=== PATIENT | female | born 1970 | race Caucasian/White ===

== ENCOUNTER 2016-12-07 14:52 | Inpatient (IN) | payer MEDICAID, OTHER ==
[~2016-12-07] VITALS: Ht 149.9 cm; Wt 65.4 kg
[2016-12-07 14:54] VITALS: BP 126/79; PULSE 102; RESP 14; TEMP 98.4; O2SAT 100
--- NOTE | 2016-12-07 16:40 | PD ---
HPI Chief Complaint: Psychiatric Symptoms Time Seen by Provider: 16:40 Travel History International Travel<30 days: No Contact w/Intl Traveler<30days: No Traveled to known affect area: No History of Present Illness HPI 46-year-old female who is primarily Cymro-speaking, accompanied by her family who speaks Bulgarian, presents to emergency department today for psychiatric evaluation. Patient is followed by Dr. Merlos, eye dressed. The daughter informs me that she has been having more auditory or visual hallucinations. She has been having extreme obsessive-compulsive behavior. Dr. Kim has been adjusting her medications but this is not working. They're concerned about her. They say she is not aggressive. He denies suicidal or homicidal ideations. No acute illnesses. No other symptoms to report. PFSH Past Medical History Schizophrenia: Yes Social History Alcohol Use: No Tobacco Use: No Substance Use: No Allergies-Medications (Allergen,Severity, Reaction): Coded Allergies: No Known Allergies (Unverified , 12/07/16) Review of Systems Except as stated in HPI: all other systems reviewed are Neg Physical Exam Narrative GENERAL: Well-nourished female patient, in no acute distress SKIN: Warm and dry. HEAD: Atraumatic. Normocephalic. EYES: Pupils equal and round. No scleral icterus. No injection or drainage. ENT: No nasal bleeding or discharge. Mucous membranes pink and moist. NECK: Trachea midline. No JVD. CARDIOVASCULAR: Regular rate and rhythm. No murmur appreciated. RESPIRATORY: No accessory muscle use. Clear to auscultation. Breath sounds equal bilaterally. GASTROINTESTINAL: Abdomen soft, non-tender, nondistended. Hepatic and splenic margins not palpable. MUSCULOSKELETAL: No obvious deformities. No clubbing. No cyanosis. No edema. NEUROLOGICAL: Awake and alert. No obvious cranial nerve deficits. Motor grossly within normal limits. Normal speech. PSYCHIATRIC: Appropriate mood and affect; insight and judgment normal. Data Data Last Documented VS Vital Signs Date Time Temp Pulse Resp B/P Pulse Ox O2 Delivery O2 Flow Rate FiO2 12/07/16 14:54 98.4 102 14 126/79 100 Room Air Orders Complete Blood Count With Diff (12/07/16 15:34) Basic Metabolic Panel (Bmp) (12/07/16 15:34) Urinalysis - C+S If Indicated (12/07/16 15:34) Drug Screen, Random Urine (12/07/16 15:34) Alcohol (Ethanol) (12/07/16 15:34) Psych Screen (12/07/16 15:34) Iv Access Insert/Monitor (12/07/16 17:58) Sodium Chlor 0.9% 1000 Ml Inj (Ns 1000 M (12/07/16 18:00) Ondansetron Inj (Zofran Inj) (12/07/16 18:00) Labs Laboratory Tests Test 12/07/16 18:00 White Blood Count 7.5 TH/MM3 Red Blood Count 4.81 MIL/MM3 Hemoglobin 14.6 GM/DL Hematocrit 41.1 % Mean Corpuscular Volume 85.5 FL Mean Corpuscular Hemoglobin 30.3 PG Mean Corpuscular Hemoglobin 35.5 % Concent Red Cell Distribution Width 12.5 % Platelet Count 280 TH/MM3 Mean Platelet Volume 7.1 FL Neutrophils (%) (Auto) 55.1 % Lymphocytes (%) (Auto) 31.2 % Monocytes (%) (Auto) 13.3 % Eosinophils (%) (Auto) 0.2 % Basophils (%) (Auto) 0.2 % Neutrophils # (Auto) 4.2 TH/MM3 Lymphocytes # (Auto) 2.4 TH/MM3 Monocytes # (Auto) 1.0 TH/MM3 Eosinophils # (Auto) 0.0 TH/MM3 Basophils # (Auto) 0.0 TH/MM3 CBC Comment DIFF FINAL Differential Comment Urine Color YELLOW Urine Turbidity HAZY Urine pH 5.0 Urine Specific [place] 1.019 Urine Protein TRACE mg/dL Urine Glucose (UA) NEG mg/dL Urine Ketones NEG mg/dL Urine Occult Blood SMALL Urine Nitrite NEG Urine Bilirubin NEG Urine Urobilinogen LESS THAN 2.0 MG/DL Urine Leukocyte Esterase MOD Urine RBC 5 /hpf Urine WBC 6 /hpf Urine Squamous Epithelial 24 /hpf Cells Urine Bacteria OCC /hpf Urine Hyaline Casts 25 /lpf Urine Mucus FEW /lpf Microscopic Urinalysis Comment CULT NOT INDICATED Sodium Level 130 MEQ/L Potassium Level 3.7 MEQ/L Chloride Level 95 MEQ/L Carbon Dioxide Level 22.5 MEQ/L Anion Gap 13 MEQ/L Blood Urea Nitrogen 7 MG/DL Creatinine 0.85 MG/DL Estimat Glomerular Filtration 72 ML/MIN Rate Random Glucose 109 MG/DL Calcium Level 9.1 MG/DL Urine Opiates Screen NEG Urine Barbiturates Screen NEG Urine Amphetamines Screen NEG Urine Benzodiazepines Screen NEG Urine Cocaine Screen NEG Urine Cannabinoids Screen NEG Ethyl Alcohol Level LESS THAN 3 MG/DL MDM Medical Decision Making Medical Screen Exam Complete: Yes Emergency Medical Condition: Yes Medical Record Reviewed: Yes Differential Diagnosis Mood disorder versus personality disorder versus adjustment reaction disorder versus electrolyte abnormality versus UTI Narrative Course 46-year-old female presents to emergency department for evaluation. Patient appears well and without distress. While lab work was being drawn, patient appeared to have a vasovagal response. She was given a liter of normal saline. She recovered quickly. Vital signs remained stable. 1845 lab work results with no acute abnormality. Patient is medically cleared to undergo psychiatric screening for further evaluation and disposition. Mental health screening discussed with the patient. Psychiatric screen ordered. Diagnosis Primary Impression: Schizoaffective disorder Qualified Code: F25.9 - Schizoaffective disorder, unspecified type Condition: Stable Geovanna Tony Dec 07, 2016 16:40
[2016-12-07] MEDS ORDERED: ONDANSETRON HCL 4 MG/2 ML VIAL IV PUSH ONE (18:00)
[2016-12-07] MEDS ORDERED: SODIUM CHLOR 0.9% 1000 ML INJ 1,000 ML IV ONE (18:00)
[2016-12-07 18:23] LABS: AUTOMATED NEUTROPHIL # 4.2 TH/MM3 (1.8-7.7); BASOPHIL % 0.2 % (0.0-2.0); EOSINOPHIL % 0.2 % (0.0-4.0); HEMATOCRIT 41.1 % (35.0-46.0); HEMO FLAGS DIFF FINAL; LYMPH % 31.2 % (9.0-44.0); LYMPHOCYTE # 2.4 TH/MM3 (1.0-4.8); MEAN CELL VOLUME 85.5 FL (80.0-100.0); MEAN CORPUSCULAR HEMOGLOBIN 30.3 PG (27.0-34.0); MEAN CORPUSCULAR HGB CONC 35.5 % (32.0-36.0); MONO % 13.3 % (0.0-8.0); NEUT % 55.1 % (16.0-70.0); PLATELET COUNT 280 TH/MM3 (150-450); RED BLOOD COUNT 4.81 MIL/MM3 (4.00-5.30); RED CELL DISTRIBUTION WIDTH 12.5 % (11.6-17.2); WHITE BLOOD COUNT 7.5 TH/MM3 (4.0-11.0)
[2016-12-07 18:25] LABS: BACTERIA, URINE OCC /hpf; BLOOD, URINE SMALL (NEG); COMMENT (UR) CULT NOT INDICATED; CULTURE IF INDICATED CULT NOT INDICATED; GLUCOSE,URINE NEG (NEG); HYALINE CAST, URINE 25 /lpf (RARE); KETONE, URINE NEG (NEG); MUCUS URINE FEW /lpf (OCC); NITRITE,URINE NEG (NEG); SQUAMOUS EPITHELIAL CELL URINE 24 /hpf (0-5); URINE COLOR YELLOW (YELLW/STRAW)
[2016-12-07 18:36] LABS: AMPHETAMINE, URINE NEG (NEG); BARBITURATES, URINE NEG (NEG); COCAINE, URINE NEG (NEG)
[2016-12-07 18:37] LABS: ANION GAP 13 MEQ/L (5-15); BICARBONATE 22.5 MEQ/L (21.0-32.0); BLOOD UREA NITROGEN 7 MG/DL (7-18); CHLORIDE 95 MEQ/L (98-107); GLOMERULAR FILTRATION RATE 72 ML/MIN (>89); POTASSIUM 3.7 MEQ/L (3.5-5.1); SODIUM (NA) 130 MEQ/L (136-145)
[2016-12-07 18:52] VITALS: BP 122/75; PULSE 91; RESP 16; TEMP 98.5; O2SAT 96
--- NOTE | 2016-12-07 20:17 | PD ---
History of Present Illness Chief Complaint: Psychiatric Symptoms Time Seen by Provider: 19:15 Travel History International Travel<30 Days: No Contact w/Intl Traveler<30days: No Known affected area: No Legal Status Legal Status: Steven Act Steven Act Signed By: Tenisha Act Comment: BONNIE Moe History of Present Illness: History of Present Illness 46-year-old female with a reported history of schizophrenia who is primarily Mongolian-speaking, accompanied by her daughter and son who present to emergency department today for psychiatric evaluation. As per the daughter, Andrea, who informs me she is her guardian, the patient has been experiencing increase in psychiatric symptoms since October. Symptoms include increase in auditory hallucinations,fear that her neighbors are trying to harm her and her 17 year old son, delusional belief that she is , and " not making sense", has not slept in 24 hours. Patient is followed by Dr. Merlos at [facility] and they have been attempting to adjust her medications on an outpatient basis. She was seen at the office this afternoon and her medications were adjusted again. At this time her daughter does not feel safe taking the patient home as she is afraid she will leave the home in the middle of the night. as well as feeling recent medications changes have been ineffective. Patient is seen in triage . She is sleepy. She asks me several times in Mongolian " What are the results". What are the results?. She is unable to answer any other questions at this time or engage in any further evaluation. Later in J pod patient states " I'm here because my daughter works in [employer] and she has shoes and she took juice". As per EMR review this is her first contact with [facility] psychiatry dept. .Negative toxicology and no hx of substance use . PFSH Past Medical History Schizophrenia: Yes Psychiatric History Psychiatric History Hx Psychiatric Treatment: as per daughter first psychotic episode 17 years ago after th of her son. Was at [facility] 3 years ago History of Inpatient Treatment: Yes Guns or firearms in home: No Social History Born and raised in [place] x 3 years. x 2 years. Lives with daughter and 17 year old son. Hx Alcohol Use: No Hx Tobacco Use: No Hx Substance Use: No Family Psychiatric History Father w reported schizophrenia Allergies-Medications (Allergen,Severity, Reaction): Coded Allergies: No Known Allergies (Unverified , 12/07/16) Review of Systems ROS Limitations: Psychotic Exam Alert: Yes [place]: Person Affect: Restricted Speech: Illogical Eye Contact: Normal Memory Intact: Comment (not tested) Hallucinations: Auditory Delusions: Yes (that she is pregnat) Suicidal: Ideation (not able to assess) Homicidal: Ideation (not able to assess.) Insight/Judgement poor. impaired MDM Medical Decision Making Medical Record Reviewed: Yes Assessment/Plan 46 year old female with reported history of schizophrenia possibly schizoaffective disorder , bipolar type who presents to [facility] for psychiatric evaluation. Patient is psychotic at the time of evaluation and is unable to provide meaningful clinical information. Daughter report that Dr. Kim at [facility] has been adjusting her medication but current medication have been ineffective. Patient at this time requires increased level of care in inpatient psychiatric unit to maintain safety, further evaluate and adjust current psychiatric medication. I am unable to contact her current outpatient psychiatrist at this time to obtain further information regarding past medication trials. I have placed her under a BA at this time as she is unable to determine that she is in need of care. Orders Complete Blood Count With Diff (12/07/16 15:34) Basic Metabolic Panel (Bmp) (12/07/16 15:34) Urinalysis - C+S If Indicated (12/07/16 15:34) Drug Screen, Random Urine (12/07/16 15:34) Alcohol (Ethanol) (12/07/16 15:34) Psych Screen (12/07/16 15:34) Iv Access Insert/Monitor (12/07/16 17:58) Sodium Chlor 0.9% 1000 Ml Inj (Ns 1000 M (12/07/16 18:00) Ondansetron Inj (Zofran Inj) (12/07/16 18:00) Results Vital Signs Date Time Temp Pulse Resp B/P Pulse Ox O2 Delivery O2 Flow Rate FiO2 12/07/16 18:52 98.5 91 16 122/75 96 12/07/16 14:54 98.4 102 14 126/79 100 Room Air Laboratory Tests Test 12/07/16 18:00 White Blood Count 7.5 Red Blood Count 4.81 Hemoglobin 14.6 Hematocrit 41.1 Mean Corpuscular Volume 85.5 Mean Corpuscular Hemoglobin 30.3 Mean Corpuscular Hemoglobin 35.5 Concent Red Cell Distribution Width 12.5 Platelet Count 280 Mean Platelet Volume 7.1 Neutrophils (%) (Auto) 55.1 Lymphocytes (%) (Auto) 31.2 Monocytes (%) (Auto) 13.3 Eosinophils (%) (Auto) 0.2 Basophils (%) (Auto) 0.2 Neutrophils # (Auto) 4.2 Lymphocytes # (Auto) 2.4 Monocytes # (Auto) 1.0 Eosinophils # (Auto) 0.0 Basophils # (Auto) 0.0 CBC Comment DIFF FINAL Differential Comment Urine Color YELLOW Urine Turbidity HAZY Urine pH 5.0 Urine Specific [place] 1.019 Urine Protein TRACE Urine Glucose (UA) NEG Urine Ketones NEG Urine Occult Blood SMALL Urine Nitrite NEG Urine Bilirubin NEG Urine Urobilinogen LESS THAN 2.0 Urine Leukocyte Esterase MOD Urine RBC 5 Urine WBC 6 Urine Squamous Epithelial 24 Cells Urine Bacteria OCC Urine Hyaline Casts 25 Urine Mucus FEW Microscopic Urinalysis Comment CULT NOT INDICATED Sodium Level 130 Potassium Level 3.7 Chloride Level 95 Carbon Dioxide Level 22.5 Anion Gap 13 Blood Urea Nitrogen 7 Creatinine 0.85 Estimat Glomerular Filtration 72 Rate Random Glucose 109 Calcium Level 9.1 Urine Opiates Screen NEG Urine Barbiturates Screen NEG Urine Amphetamines Screen NEG Urine Benzodiazepines Screen NEG Urine Cocaine Screen NEG Urine Cannabinoids Screen NEG Ethyl Alcohol Level LESS THAN 3 Diagnosis Primary Impression: Schizoaffective disorder Admitting Information Admitting Physician Requests: Admit (Dr. Brown) Condition: Stable Problem Qualifiers Primary Impression: Schizoaffective disorder Qualified Code: F25.0 - Schizoaffective disorder, bipolar type Leti Tao Dec 07, 2016 20:17
[2016-12-07] MEDS ORDERED: OLAN20TA PO (20:35)
[2016-12-07] MEDS ORDERED: ARIP1TAB14 PO (20:38)
[2016-12-07] MEDS ORDERED: LEVO88TA2 PO (20:38)
[2016-12-07] MEDS ORDERED: LORA-373 PO (20:38)
[2016-12-07] MEDS ORDERED: BENZ1TAB PO (20:38)
[2016-12-07] MEDS ORDERED: BUPR100T4 PO (20:38)
[2016-12-07] MEDS ORDERED: BUSP10TA PO (20:38)
[2016-12-07] MEDS ORDERED: MAGNESIUM HYDROXIDE SUSP 30 ML CUP PO PRN (20:45)
[2016-12-07] MEDS ORDERED: ALUMINUM/MAGNESIUM/SIMETH 30 ML CUP PO PRN (20:45)
[2016-12-07] MEDS: BENZTROPINE MESYLATE 1 MG TAB PO SCH (20:57)
[2016-12-07 21:06] VITALS: BP 109/66; PULSE 80; RESP 18; O2SAT 96
[2016-12-07 23:00] VITALS: BP 116/66; PULSE 90; RESP 18; TEMP 97.7; O2SAT 98
[2016-12-08 06:33] VITALS: BP 130/68; PULSE 16; RESP 16; TEMP 98.2; O2SAT 98
[2016-12-08 08:12] LABS: ANION GAP 4 MEQ/L (5-15); BICARBONATE 28.7 MEQ/L (21.0-32.0); BLOOD UREA NITROGEN 6 MG/DL (7-18); CHLORIDE 104 MEQ/L (98-107); GLOMERULAR FILTRATION RATE 85 ML/MIN (>89); HDL CHOLESTEROL 100.8 MG/DL (40.0-60.0); LDL CHOLESTEROL 66 MG/DL (0-99); POTASSIUM 4.3 MEQ/L (3.5-5.1); SODIUM (NA) 137 MEQ/L (136-145)
[2016-12-08] MEDS: busPIRone HCL 10 MG TAB PO SCH ×3 (08:32→17:47)
[2016-12-08] MEDS: LEVOTHYROXINE SODIUM 88 MCG TAB PO SCH (08:32)
[2016-12-08] MEDS: ARIPiprazole 5 MG TAB PO SCH (11:27)
[2016-12-08] MEDS ORDERED: BENZTROPINE MESYLATE 1 MG TAB PO PRN (11:30)
[2016-12-08] MEDS ORDERED: BENZTROPINE MESYLATE 2 MG/2 ML VIAL IM PRN (11:30)
[2016-12-08] MEDS: hydrOXYzine HCL 50 MG TAB PO PRN ×2 (12:28→20:59)
--- NOTE | 2016-12-08 12:47 | MH ---
cc: ANTHONY ANAYA MD DATE OF ADMISSION 12/07/2016 ADMISSION DIAGNOSES 1. Other psychotic disorder, F28 2. Mixed anxiety disorder, F41.3 LEGAL STATUS The patient is capacitated to consent for psychiatric admission and for psychotropic medications. Voluntary status. HISTORY OF PRESENT ILLNESS Ms. Emerson is a 46-year-old female with a reported history of psychotic disorder who presents to the ED voluntarily for psychiatric evaluation. The patient was evaluated by the psychiatric nurse practitioner who placed the patient under the Steven Act. Reviewing our electronic medical record, I see no prior psychiatric contact within our system. The patient seen and examined. Chart reviewed. Case discussed with nursing staff on the inpatient psychiatric unit. The patient was assessed with nurse, Betzy who is conversant in Romanian, and also with counselor Berta. On my examination today, the patient says that she "hears voices, not fast." She denies any command auditory hallucinations, but struggles to describe the auditory phenomenon in any meaningful detail. She cannot tell me the duration of this symptom. She says "it is like in the nerve and I cannot really hear it." She denies any visual phenomenon. She denies any other hallucinatory phenomenon. I can elicit no delusional beliefs including, but not limited to paranoia, ideas of reference, thought insertion or withdrawal. She admits that sometimes she feels sad and more prominently anxious. Perhaps some mild sleep disturbance is present. She denies any suicidal or homicidal ideation. I can elicit no hypomanic or manic symptoms in this patient at this time. She does not describe any other real depressive symptomatology either. She is notably well-groomed and appears to be attending to her ADLs. The remainder of the psychiatric ROS is negative. With the patient's permission, counselor and I have obtained collateral from the patient's daughter, Marilin Hurtado. Ms. Hurtado says that the patient has a history of primary psychotic disorder and follows with Dr. Alvarez at [facility]. She reports that the patient's main ongoing issues are a high level of anxiety regarding the patient's adolescent son and also some degree of internal preoccupation. The daughter gives updated medication list, detailed below. PAST PSYCHIATRIC HISTORY The patient has a history of psychotic disorder as noted above. She follows with Dr. Kim at [facility]. She denies any history of psychiatric admissions or suicide attempts. FAMILY HISTORY The patient denies a family history of mental illness. CHEMICAL DEPENDENCY HISTORY The patient denies any history of abuse of drugs or alcohol. Her toxicology is negative and her alcohol level was undetectable on presentation here. SOCIAL HISTORY The patient reports that she lives with her daughter and 16-year-old son. Her mother is also in the home. She is high school educated, but does not work. She denies any history. No reported legal history. Denies any access to guns or firearms. PAST MEDICAL HISTORY Includes a history of hypothyroidism. MEDICATIONS Per daughter medication list consists of: 1. Wellbutrin 150 mg daily 2. Abilify 5 mg daily 3. Ativan 0.5 mg daily 4. Buspirone 10 mg daily 5. The patient's thyroid preparation. 6. Zyprexa 20 mg at bedtime 7. Cogentin 1 mg at bedtime ALLERGIES No known allergies. REVIEW OF SYSTEMS No reported headache, vision or hearing changes, chest pain, shortness of breath, bowel or bladder issues. She does note some polydipsia. PHYSICAL EXAMINATION VITAL SIGNS: Temperature is 98.2, pulse 90, respirations 16, blood pressure 130/68, pulse oximetry 98% on room air. A physical examination was completed in the emergency room by the ER staff and the patient was medically cleared. On my examination today, the patient appears to be in no acute physical distress. She is a well-nourished, well-developed female. Steady gait and station. No motoric abnormalities noted. No hand tremor, no dystonia, no dyskinesia noted. LABORATORY Reviewed: CBC is unremarkable. CMP significant for mildly decreased GFR at 85. Lipid panel is unremarkable. Beta hCG is negative. Hemoglobin A1c is pending. Toxicology is negative and alcohol level undetectable is undetectable. Urinalysis reveals small occult blood, moderate leukocyte esterase, 6 white blood cells, but culture was not indicated. MENTAL STATUS EXAM The patient is well-dressed and groomed. She is awake and alert and oriented to [facility] [place] [place]. She does struggle to do serial sevens. No motoric abnormalities noted. Speech is within normal limits for rate, tone and volume. Language and fund of knowledge seem average for age. Mood is described as somewhat down and affect is chiefly anxious. Thought process fairly linear. No loosening of associations. No ricardo delusions that I can tell on my examination. The patient does describe vague auditory hallucinations, but no other hallucinatory material. She denies suicidal or homicidal ideation. Insight and judgment seem fair. ASSESSMENT/PLAN This is a 46-year-old female with psychiatric history as detailed above who presents for psychiatric evaluation, now under the Steven Act and admitted to the inpatient psychiatric unit. The patient does apparently have a history of psychotic disorder and per collateral from the daughter, this may be mildly decompensated recently. There also seems to be a significant component of comorbid anxiety and I wonder if this might not help explain some of the symptomatology that has up to now has been described as psychotic in nature. Reviewing the medication list, there is significant polypharmacy and I think there is an opportunity for optimization of her medications while she is on the inpatient psychiatric unit. I will plan to admit the patient psychiatrically for a brief period of observation and stabilization. Admit inpatient, voluntary status. Check a TSH. I will continue her Abilify 5 mg daily and Zyprexa 20 mg at bedtime for now although an ancillary goal of this hospitalization may be to try to move the patient to antipsychotic monotherapy. I will replace her Bupropion, which has limited anxiolytic properties, with a serotonergic antidepressant which will hopefully help more with her anxiety. I will initiate Lexapro at a dose of 10 mg daily. I will continue her low-dose Ativan in morning. I will continue her scheduled Cogentin at bedtime, although with modifications to her antipsychotic regimen this may be able to be discontinued. I will continue her thyroid preparation. I will provide her with Atarax as needed for anxiety, Cogentin as needed for any breakthrough EPS. Vitals every shift. Counselor to see. Disposition planning. Estimated length of stay: 3-5 days. Anthony MARS /11:34 AM /12:11 PM OLIVE
[2016-12-08 15:50] LABS: HEMOGLOBIN A1b 0.9 %; HEMOGLOBIN Ao 86.3 %; HEMOGLOBIN LA1C 1.7 %; HEMOGLOBIN P3 3.3 %
[2016-12-08] MEDS: OLANZapine 10 MG TAB PO SCH (20:59)
[2016-12-08] MEDS: BENZTROPINE MESYLATE 1 MG TAB PO SCH (20:59)
[2016-12-08] MEDS: ACETAMINOPHEN 325 MG TAB PO PRN (21:01)
[2016-12-09] MEDS: LEVOTHYROXINE SODIUM 88 MCG TAB PO SCH (06:03)
[2016-12-09 06:40] VITALS: BP 111/68; PULSE 80; RESP 18; TEMP 98.5; O2SAT 98
[2016-12-09] MEDS: ESCITALOPRAM OXALATE 10 MG TAB PO SCH (08:32)
[2016-12-09] MEDS: busPIRone HCL 10 MG TAB PO SCH ×3 (08:32→18:24)
[2016-12-09] MEDS: ARIPiprazole 5 MG TAB PO SCH (08:35)
[2016-12-09] MEDS ORDERED: LORazepam 0.5 MG TAB PO SCH ×3 (09:00→21:00)
[2016-12-09] MEDS: ACETAMINOPHEN 325 MG TAB PO PRN (10:22)
--- NOTE | 2016-12-09 16:16 | HHI.PYPN ---
Subjective Remarks Patient seen and examined. Chart reviewed. Case discussed with nursing staff. I did endeavor to utilize the computer based interpretation service with the patient, but she preferred to conduct the interview in Sammarinese, and her Sammarinese proficiency seems fairly good. On my examination today, the patient clarifies her auditory hallucinations as being deprecatory nature saying "I want to kill you. Closer mouth." She notes that these have been getting quieter lately to the point that she is not particularly disturbed by them anymore. She does articulate a concern about the possibility of being , and I do see that there were concerns about delusions of prior to admission, but she seems easily reassured when I explained that we obtained a beta hCG which was negative. She denies any suicidal or homicidal ideation on direct questioning. She reports that she is sleeping well. She does complain of some anxiety, and we discuss adjustments I have made to her psychopharmacologic regimen in service of reducing this anxiety level. She denies side effects from current medications but does note the prior to admission bupropion was added and that this seemed to make her feel more nauseated. Review of Systems Other no physical complaints today Objective Alert: Yes [place]: Person, Place, Date Mood: Anxious Affect: Blunted Memory Intact: Comment (not formally assessed) Hallucinations: Auditory (deprecatory, noncommand) Delusions: No Delusion Type: Other (somewhat concerned about the possibility of being but easily reassured by negative test. No other evident delusions.) Suicidal: Ideation (denies suicidal ideation) Homicidal: Ideation (denies homicidal ideation) Insight/Judgement Fair Remarks No motoric abnormalities noted. Thought process linear. Speech within normal limits for rate, tone and volume. Grooming and self-care appear good. Labs Labs reviewed. No new labs. Vitals/IOs Vital Signs Date Time Temp Pulse Resp B/P Pulse Ox O2 Delivery O2 Flow Rate FiO2 12/09/16 06:40 98.5 80 18 111/68 98 12/07/16 21:06 Room Air Assessment & Plan Problem List: (1) Other psychotic disorder not due to a substance or known physiological condition ICD Code: F28 (2) Other mixed anxiety disorders ICD Code: F41.3 Assessment & Plan Continue Lexapro as ordered with plans to titrate to target anxiety. I will titrate her scheduled Ativan to twice a day to target anxiety until the antidepressant can take affect. Continue other psychotropics as ordered. Continue other medications and care as ordered. Justification for Cont. Inpt. Monitoring for safety. Medication changes in process. Risk for decompensation. Discharge Planning Pending psychiatric stabilization. Request HC Surrog/Guard Advoc?: No Abdulaziz Brown MD Dec 09, 2016 16:16
[2016-12-09] MEDS: LORazepam 0.5 MG TAB PO SCH (18:24)
[2016-12-09 19:35] VITALS: BP 128/70; PULSE 68; RESP 12; TEMP 97.9; O2SAT 98
[2016-12-09] MEDS: OLANZapine 10 MG TAB PO SCH (20:41)
[2016-12-09] MEDS: BENZTROPINE MESYLATE 1 MG TAB PO SCH (20:42)
[2016-12-10 05:41] VITALS: BP 136/82; PULSE 100; RESP 16; TEMP 98.6; O2SAT 96
[2016-12-10] MEDS: LEVOTHYROXINE SODIUM 88 MCG TAB PO SCH (05:55)
[2016-12-10] MEDS: ESCITALOPRAM OXALATE 10 MG TAB PO SCH (08:44)
[2016-12-10] MEDS: busPIRone HCL 10 MG TAB PO SCH ×3 (08:44→17:05)
[2016-12-10] MEDS: ARIPiprazole 5 MG TAB PO SCH (08:45)
[2016-12-10] MEDS: LORazepam 0.5 MG TAB PO SCH ×2 (08:45→17:05)
--- NOTE | 2016-12-10 11:44 | HHI.PYPN ---
Subjective Remarks Patient seen and examined. Chart reviewed. Case discussed with nursing staff. On my examination today, patient complains of reddening of her right middle finger that is painful. I have consulted the hospitalist for this. Patient reports that she tolerated adjustment in medication well and feels a little bit less anxious. No SI or HI voiced. No evident psychosis. No side effects from medications. Review of Systems Other except as above, no somatic complaints today. Objective Alert: Yes [place]: Person, Place, Date Mood: Anxious (lessening) Affect: Blunted Memory Intact: Comment (not formally assessed) Hallucinations: Other (no AVH reported today) Delusions: No Delusion Type: Other (no delusions) Suicidal: Ideation (no SI) Homicidal: Ideation (no HI) Insight/Judgement Fair Remarks No motoric abnormalities noted. TP linear. R middle finger is erythematous and mildly swollen and tender around the nail without purulence or drainage. Labs Labs reviewed Vitals/IOs Vital Signs Date Time Temp Pulse Resp B/P Pulse Ox O2 Delivery O2 Flow Rate FiO2 12/10/16 05:41 98.6 100 16 136/82 96 12/07/16 21:06 Room Air Assessment & Plan Problem List: (1) Other psychotic disorder not due to a substance or known physiological condition ICD Code: F28 (2) Other mixed anxiety disorders ICD Code: F41.3 Assessment & Plan Titrate Lexapro over the weekend to target anxiety. Continue other psychotropics as ordered. Continue other medications and care as ordered. Consult the hospitalist for the painful finger. Justification for Cont. Inpt. Risk for decompensation Discharge Planning Pending psychiatric stabilization. Possible discharge after the weekend. Request HC Surrog/Guard Advoc?: No Abdulaziz Brown MD Dec 10, 2016 11:44
[2016-12-10] MEDS: ACETAMINOPHEN 325 MG TAB PO PRN (13:09)
--- NOTE | 2016-12-10 17:28 | PD.CONS ---
[facility] [place] Requested By Dr. Brown Reason for Consult T0 evaluate and treat right middle finger infection Primary Care Physician Miley Kim M.D. Diagnoses: History of Present Illness This is a 46-year-old female who presented to the emergency room claiming of increased hallucinations. She has history of schizophrenia and hypothyroidism. Consultation has been requested by her attending to evaluate and manage right middle finger infection. Patient complains of pain and swelling of the right distal phalanx. Denies trauma, fever and chills. Patient examined with RN. Review of Systems Constitutional: DENIES: Diaphoretic episodes, Fatigue, Fever, Weight gain, Weight loss, Chills, Dizziness, Change in appetite, Night Sweats Endocrine: DENIES: Heat/cold intolerance, Polydipsia, Polyuria, Polyphagia Eyes: DENIES: Blurred vision, Diplopia, Vision loss, Photosensitivity Ears, nose, mouth, throat: DENIES: Tinnitus, Vertigo, Throat pain, Hoarseness, Epistaxis, Odynophagia Respiratory: DENIES: Cough, Wheezing, Hemoptysis, Sputum production, Shortness of breath Cardiovascular: DENIES: Chest pain, Palpitations, Syncope, Dyspnea on Exertion , PND, Lower Extremity Edema, Orthopnea, Claudication Gastrointestinal: DENIES: Abdominal pain, Black stools, Bloody stools, Constipation, Diarrhea, Nausea, Vomiting, Difficulty Swallowing, Anorexia Genitourinary: DENIES: Urinary frequency, Urinary incontinence, Urgency, Hematuria, Dysuria, Nocturia, Vaginal discharge Musculoskeletal: COMPLAINS OF: Joint pain, Joint Swelling Integumentary: DENIES: Rash Neurologic: DENIES: Headache, Localized weakness, Seizures, Tremor, Poor Balance Psychiatric: COMPLAINS OF: Hallucinations, DENIES: Anxiety, Confusion, Depression, Agitation, Suicidal Ideation, Homicidal Ideation, Delusions Past Family Social History Allergies: Coded Allergies: No Known Allergies (Unverified , 12/07/16) Past Medical History As previously mentioned Past Surgical History Denies Reported Medications 1. Wellbutrin 150 mg daily 2. Abilify 5 mg daily 3. Ativan 0.5 mg daily 4. Buspirone 10 mg daily 5. Synthroid 6. Zyprexa 20 mg at bedtime 7. Cogentin 1 mg at bedtime Family History Diabetes mellitus Social History Does not smoke or drink Physical Exam Vital Signs Vital Signs Date Time Temp Pulse Resp B/P Pulse Ox O2 Delivery O2 Flow Rate FiO2 12/10/16 13:54 18 12/10/16 05:41 98.6 100 16 136/82 96 12/09/16 19:35 97.9 68 12 128/70 98 Physical Exam GENERAL: This is a well-nourished, well-developed patient, in no apparent distress. SKIN: No rashes, ecchymoses or lesions. Cool and dry. HEAD: Atraumatic. Normocephalic. No temporal or scalp tenderness. EYES: Pupils equal round and reactive. Extraocular motions intact. No scleral icterus. No injection or drainage. ENT: Nose without bleeding, purulent drainage or septal hematoma. Throat without erythema, tonsillar hypertrophy or exudate. Uvula midline. Airway patent. NECK: Trachea midline. No JVD or lymphadenopathy. Supple, nontender, no meningeal signs. CARDIOVASCULAR: Regular rate and rhythm without murmurs, gallops, or rubs. RESPIRATORY: Clear to auscultation. Breath sounds equal bilaterally. No wheezes , rales, or rhonchi. GASTROINTESTINAL: Abdomen soft, non-tender, nondistended No guarding. MUSCULOSKELETAL: Extremities without clubbing, cyanosis, or edema. No joint tenderness, effusion, or edema noted. No calf tenderness. Negative Homans sign bilaterally. Right middle finger medial fold is swollen, warm and tender consistent with paronychia NEUROLOGICAL: Awake and alert. Cranial nerves II through XII intact. Motor and sensory grossly within normal limits. Five out of 5 muscle strength in all muscle groups. Normal speech. Result Diagram: 12/07/16 1800 12/08/16 0715 Assessment and Plan Assessment and Plan Schizophrenia per psychiatry Hypothyroidism. Stable with therapeutic TSH. Continue Synthroid Right paronychia. Warm compress, topical antibiotic and Keflex. We'll monitor response. Low risk for DVT Discussed Condition With Patient and nursing staff Kike Carter MD Dec 10, 2016 17:28
[2016-12-10] MEDS ORDERED: IBUPROFEN 400 MG TAB PO PRN (17:30)
[2016-12-10] MEDS: CEPHALEXIN MONOHYDRATE 500 MG CAP PO SCH ×2 (18:18→23:37)
[2016-12-10] MEDS: NEOMYCIN/POLYMYXIN/BACITRACIN OINT 15 GM TUBE TOPICAL SCH (18:39)
[2016-12-10 19:29] VITALS: BP 122/69; PULSE 85; RESP 16; TEMP 98; O2SAT 96
[2016-12-10] MEDS: OLANZapine 10 MG TAB PO SCH (20:30)
[2016-12-10] MEDS: BENZTROPINE MESYLATE 1 MG TAB PO SCH (20:30)
[2016-12-11 05:36] VITALS: BP 160/80; PULSE 96; RESP 18; TEMP 98.4; O2SAT 98
[2016-12-11] MEDS: CEPHALEXIN MONOHYDRATE 500 MG CAP PO SCH ×4 (06:08→23:48)
[2016-12-11] MEDS: LEVOTHYROXINE SODIUM 88 MCG TAB PO SCH (06:08)
[2016-12-11] MEDS: LORazepam 0.5 MG TAB PO SCH ×2 (08:08→17:54)
[2016-12-11] MEDS: ESCITALOPRAM OXALATE 10 MG TAB PO SCH (08:08)
[2016-12-11] MEDS: busPIRone HCL 10 MG TAB PO SCH ×3 (08:09→17:54)
[2016-12-11] MEDS: NEOMYCIN/POLYMYXIN/BACITRACIN OINT 15 GM TUBE TOPICAL SCH (08:09)
[2016-12-11] MEDS: ARIPiprazole 5 MG TAB PO SCH (08:11)
--- NOTE | 2016-12-11 15:32 | HHI.PR ---
Subjective Remarks Follow-up paronychia. Denies pain. Discussed with RN Objective Vitals Vital Signs Date Time Temp Pulse Resp B/P Pulse Ox O2 Delivery O2 Flow Rate FiO2 12/11/16 05:36 98.4 96 18 160/80 98 12/10/16 19:29 98.0 85 16 122/69 96 Result Diagram: 12/07/16 1800 12/08/16 0715 Objective Remarks GENERAL: This is a well-nourished, well-developed patient, in no apparent distress. SKIN: No rashes, ecchymoses or lesions. Cool and dry. HEAD: Atraumatic. Normocephalic. No temporal or scalp tenderness. EYES: Pupils equal round and reactive. Extraocular motions intact. No scleral icterus. No injection or drainage. ENT: Nose without bleeding, purulent drainage or septal hematoma. Throat without erythema, tonsillar hypertrophy or exudate. Uvula midline. Airway patent. NECK: Trachea midline. No JVD or lymphadenopathy. Supple, nontender, no meningeal signs. CARDIOVASCULAR: Regular rate and rhythm without murmurs, gallops, or rubs. RESPIRATORY: Clear to auscultation. Breath sounds equal bilaterally. No wheezes , rales, or rhonchi. GASTROINTESTINAL: Abdomen soft, non-tender, nondistended No guarding. MUSCULOSKELETAL: Extremities without clubbing, cyanosis, or edema. No joint tenderness, effusion, or edema noted. No calf tenderness. Negative Homans sign bilaterally. Right middle finger medial fold is swollen, warm and tender which is improving NEUROLOGICAL: Awake and alert. Cranial nerves II through XII intact. Motor and sensory grossly within normal limits. Five out of 5 muscle strength in all muscle groups. Normal speech. A/P Assessment and Plan Schizophrenia per psychiatry Hypothyroidism. Stable with therapeutic TSH. Continue Synthroid Right paronychia. Improving continue Warm compress, topical antibiotic and Keflex. We'll continue to monitor response. I and D not needed at this time Low risk for DVT Kike Carter MD Dec 11, 2016 15:32
--- NOTE | 2016-12-11 18:05 | HHI.PYPN ---
Subjective Remarks Pt seen and discussed with staff. She reports that medications seem to be working and AH have decreased significantly. Staff report that pt htas been compliant with treatment and calm and pleasant. No sleep disturbance. 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 Continue current tx plan.Estimated LOS: days Justification for Cont. Inpt. impairments in reality construction and risk of decompensation. Request HC Surrog/Guard Advoc?: No Geri Gillespie MD Dec 11, 2016 18:04
[2016-12-11 18:58] VITALS: BP 138/96; PULSE 69; RESP 18; TEMP 98; O2SAT 100
[2016-12-11] MEDS: BENZTROPINE MESYLATE 1 MG TAB PO SCH (20:35)
[2016-12-11] MEDS: OLANZapine 10 MG TAB PO SCH (20:35)
[2016-12-12 05:55] VITALS: BP 134/82; PULSE 94; RESP 19; TEMP 98.4; O2SAT 100
[2016-12-12] MEDS: LEVOTHYROXINE SODIUM 88 MCG TAB PO SCH (06:13)
[2016-12-12] MEDS: CEPHALEXIN MONOHYDRATE 500 MG CAP PO SCH ×3 (06:13→18:17)
[2016-12-12] MEDS: busPIRone HCL 10 MG TAB PO SCH ×3 (08:34→18:17)
[2016-12-12] MEDS: NEOMYCIN/POLYMYXIN/BACITRACIN OINT 15 GM TUBE TOPICAL SCH (08:34)
[2016-12-12] MEDS: LORazepam 0.5 MG TAB PO SCH ×2 (08:34→18:17)
[2016-12-12] MEDS: ESCITALOPRAM OXALATE 10 MG TAB PO SCH (08:34)
[2016-12-12] MEDS: ARIPiprazole 5 MG TAB PO SCH (08:34)
[2016-12-12] MEDS: ACETAMINOPHEN 325 MG TAB PO PRN (10:20)
--- NOTE | 2016-12-12 13:17 | HHI.PYPN ---
Subjective Remarks Pt seen and discussed with staff. Pt reports that she has not had AH but paranoia persists. "I'm afraid. I feel like someone is behind me, watching me." No medication side effects and pt is compliant. 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 Estimated LOS: days Justification for Cont. Inpt. impairments in reality construction. Request HC Surrog/Guard Advoc?: Geri Rangel MD Dec 12, 2016 13:17
[2016-12-12 18:38] VITALS: BP 136/77; PULSE 77; RESP 20; TEMP 98; O2SAT 98
[2016-12-12] MEDS: OLANZapine 10 MG TAB PO SCH (21:00)
[2016-12-12] MEDS: BENZTROPINE MESYLATE 1 MG TAB PO SCH (21:00)
[2016-12-12] MEDS: hydrOXYzine HCL 50 MG TAB PO PRN (21:13)
[2016-12-13 04:57] VITALS: BP 142/88; PULSE 97; RESP 18; TEMP 98.1; O2SAT 100
[2016-12-13] MEDS: CEPHALEXIN MONOHYDRATE 500 MG CAP PO SCH ×5 (06:00→23:00)
[2016-12-13] MEDS: LEVOTHYROXINE SODIUM 88 MCG TAB PO SCH (06:00)
[2016-12-13] MEDS: NEOMYCIN/POLYMYXIN/BACITRACIN OINT 15 GM TUBE TOPICAL SCH (09:00)
[2016-12-13] MEDS: ESCITALOPRAM OXALATE 10 MG TAB PO SCH (09:00)
[2016-12-13] MEDS: ARIPiprazole 5 MG TAB PO SCH (09:00)
[2016-12-13] MEDS: busPIRone HCL 10 MG TAB PO SCH ×3 (09:00→17:53)
[2016-12-13] MEDS: LORazepam 0.5 MG TAB PO SCH ×2 (09:00→17:53)
--- NOTE | 2016-12-13 13:17 | HHI.PYPN ---
Subjective Remarks Patient seen and examined. Chart reviewed. Case discussed with nursing staff. Per nursing staff, patient has been pleasant and cooperative. On my examination today, patient reports that she is feeling well. She denies any SI , HI or AVH. She denies any side effects from medications besides some mild dry mouth.. She requests that we begin final discharge planning and also requests that we contact her daughter in this regard. I did endeavor to give her daughter a call and left a voicemail requesting a call back. Review of Systems Other Besides dry mouth, no somatic complaints Objective Alert: Yes [place]: Person, Place, Date Mood: Calm Affect: Euthymic Memory Intact: Comment (seems fairly intact on clinical exam) Hallucinations: Other (denies AVH) Delusions: No Delusion Type: Other (no delusions) Suicidal: Ideation (denies suicidal ideation) Homicidal: Ideation (denies homicidal ideation) Insight/Judgement Fair Remarks No motoric abnormalities noted Labs Labs reviewed. 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 Continue other medications and care is ordered. I will ask the hospitalist media sales consultant to medically clear the patient for discharge. Justification for Cont. Inpt. Monitor overnight. Discharge Planning Counselor will try to get in contact with patient's daughter and we will anticipate discharge tomorrow barring some clinical worsening. Request HC Surrog/Guard Advoc?: No Abdulaziz Brown MD Dec 13, 2016 13:17
--- NOTE | 2016-12-13 16:12 | HHI.PR ---
Subjective Remarks All of visit paronychia. Patient seen today. States she is doing well. Denies any pain. Reports improved right finger paronychia. Denies fevers, chills, nausea, vomiting, diarrhea. Objective Vitals Vital Signs Date Time Temp Pulse Resp B/P Pulse Ox O2 Delivery O2 Flow Rate FiO2 12/13/16 04:57 98.1 97 18 142/88 100 12/12/16 18:38 98.0 77 20 136/77 98 Objective Remarks GENERAL: This is a well-nourished, well-developed patient, in no apparent distress. SKIN: No rashes, ecchymoses or lesions. Cool and dry. HEAD: Atraumatic. Normocephalic. No temporal or scalp tenderness. EYES: Pupils equal round and reactive. Extraocular motions intact. No scleral icterus. No injection or drainage. ENT: Nose without bleeding, purulent drainage or septal hematoma. Throat without erythema, tonsillar hypertrophy or exudate. Uvula midline. Airway patent. NECK: Trachea midline. No JVD or lymphadenopathy. Supple, nontender, no meningeal signs. CARDIOVASCULAR: Regular rate and rhythm without murmurs, gallops, or rubs. RESPIRATORY: Clear to auscultation. Breath sounds equal bilaterally. No wheezes , rales, or rhonchi. GASTROINTESTINAL: Abdomen soft, non-tender, nondistended No guarding. MUSCULOSKELETAL: Extremities without clubbing, cyanosis, or edema. Right middle finger medial fold is swollen, warm and tender which is improving NEUROLOGICAL: Awake and alert. Motor and sensory grossly within normal limits. Normal speech. 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 - Improved. Hypothyroidism - continue with Synthroid. Stable Low risk for DVT. Ambulatory. Discussed with patient, nursing Stable from Hospitalist standpoint. We will sign off. Reconsult as needed. Written by Jose Ac, acting as scribe for Dr. Jovel on 12/13/16 at 15:41. The documentation accurately reflects the work performed [id number] by me, Dr. Jovel on 12/13/16 at 15:41. Problem Qualifiers (1) Schizoaffective disorder: Qualified Code: F25.0 - Schizoaffective disorder, bipolar type Jose Alonzo Dec 13, 2016 16:12 Andrew Jovel MD Dec 24, 2016 15:46
[2016-12-13 19:01] VITALS: BP 134/87; PULSE 74; RESP 18; TEMP 98.1; O2SAT 100
[2016-12-13] MEDS: OLANZapine 10 MG TAB PO SCH (21:00)
[2016-12-13] MEDS: BENZTROPINE MESYLATE 1 MG TAB PO SCH (21:00)
[2016-12-14] MEDS: CEPHALEXIN MONOHYDRATE 500 MG CAP PO SCH ×2 (06:00→12:34)
[2016-12-14] MEDS: LEVOTHYROXINE SODIUM 88 MCG TAB PO SCH (06:00)
[2016-12-14 06:21] VITALS: BP 125/80; PULSE 75; RESP 16; TEMP 97.8; O2SAT 97
[2016-12-14] MEDS: LORazepam 0.5 MG TAB PO SCH ×2 (08:06→17:30)
[2016-12-14] MEDS: NEOMYCIN/POLYMYXIN/BACITRACIN OINT 15 GM TUBE TOPICAL SCH (08:06)
[2016-12-14] MEDS: ESCITALOPRAM OXALATE 10 MG TAB PO SCH (08:06)
[2016-12-14] MEDS: busPIRone HCL 10 MG TAB PO SCH ×3 (08:06→17:30)
[2016-12-14] MEDS: ARIPiprazole 5 MG TAB PO SCH (08:06)
[2016-12-14] MEDS ORDERED: ARIP1TAB11 PO (13:56)
[2016-12-14] MEDS ORDERED: CEPH500C PO (13:56)
[2016-12-14] MEDS ORDERED: LORA-392 PO (13:56)
[2016-12-14] MEDS ORDERED: ESCI10TA PO (13:56)
--- NOTE | 2016-12-14 13:56 | HHI.DS ---
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 Emerson is a 46-year-old female with a reported history of psychotic disorder who presents to the ED voluntarily for psychiatric evaluation. The patient was evaluated by the psychiatric nurse practitioner who placed the patient under the Steven Act. Reviewing our electronic medical record, I see no prior psychiatric contact within our system. The patient seen and examined. Chart reviewed. Case discussed with nursing staff on the inpatient psychiatric unit. The patient was assessed with nurse, Betzy who is conversant in Romanian, and also with counselor Berta. On my examination today, the patient says that she "hears voices, not fast." She denies any command auditory hallucinations, but struggles to describe the auditory phenomenon in any meaningful detail. She cannot tell me the duration of this symptom. She says "it is like in the nerve and I cannot really hear it." She denies any visual phenomenon. She denies any other hallucinatory phenomenon. I can elicit no delusional beliefs including, but not limited to paranoia, ideas of reference, thought insertion or withdrawal. She admits that sometimes she feels sad and more prominently anxious. Perhaps some mild sleep disturbance is present. She denies any suicidal or homicidal ideation. I can elicit no hypomanic or manic symptoms in this patient at this time. She does not describe any other real depressive symptomatology either. She is notably well-groomed and appears to be attending to her ADLs. The remainder of the psychiatric ROS is negative. With the patient's permission, counselor and I have obtained collateral from the patient's daughter, Marilin Hurtado. Ms. Hurtado says that the patient has a history of primary psychotic disorder and follows with Dr. Alvarez at [facility]. She reports that the patient's main ongoing issues are a high level of anxiety regarding the patient's adolescent son and also some degree of internal preoccupation. The daughter gives updated medication list, detailed below. Tobacco Use In Past 30 Days: No Tobacco Past 30 Days Alcohol Use: Monthly or Less Hospital Course Patient was admitted to a locked, inpatient psychiatric unit. A general medical consultation was obtained. Appropriate precautions were in place throughout patient's hospital stay. Patient was seen and examined daily on the unit by psychiatry and also visited by counselor. Medications were adjusted. Patient tolerated medications well without side effects. Patient had improvement in her presenting psychiatric symptomatology during the course of her hospital stay. There was no evidence of any suicidality or homicidality on the inpatient unit. Patient remained in good behavioral control and was medication compliant. Counselor has reached out to patient's daughter on the day of discharge and the daughter is reportedly willing to accept the patient home. On the day of discharge: Patient seen and examined in treatment team. Chart reviewed. Case discussed with nursing staff, counselor and recreation therapist. Patient is reportedly doing well on the unit without behavioral disturbance. On my examination today, the patient is in good spirits. She requests discharge from the inpatient psychiatric unit. Mood is good and there is no evidence of unstable mood disorder. Anxiety level considerably lessened. She denies any audiovisual hallucinations and I can elicit no delusional beliefs. She denies any suicidal or homicidal ideation. She denies any side effects from medications. She has no somatic complaints today. Weighing the acute, chronic, and protective factors and based on the available evidence, I food assembler kitchen to a reasonable degree of medical certainty that the patient is at low imminent risk of harm to self or others from a mental illness as defined under the Steven act and her level of function is adequate for outpatient care. The patient has maximized benefit from this inpatient psychiatric hospital stay and will be discharged today in stable condition with psychiatric follow-up as arranged by counselor. Patient is also to follow-up with primary care. I continued patient's Keflex for a total duration of treatment of 14 days for her paronychia. I counseled the patient regarding warning signs for need to return to the psychiatric emergency room is part of a general safety plan. Results Blood Pressure 125 / 80 Vital Signs Date Time Temp Pulse Resp B/P Pulse Ox O2 Delivery O2 Flow Rate FiO2 12/14/16 06:21 97.8 75 16 125/80 97 Item Value Date Time White Blood Count 7.5 TH/MM3 12/07/16 1800 Hemoglobin 14.6 GM/DL 12/07/16 1800 Platelet Count 280 TH/MM3 12/07/16 1800 Sodium Level 137 MEQ/L 12/08/16 0715 Potassium Level 4.3 MEQ/L 12/08/16 0715 Chloride Level 104 MEQ/L # 12/08/16 0715 Carbon Dioxide Level 28.7 MEQ/L 12/08/16 0715 Blood Urea Nitrogen 6 MG/DL L 12/08/16 0715 Creatinine 0.73 MG/DL 12/08/16 0715 Hemoglobin A1c 5.3 % 12/08/16 0715 Thyroid Stimulating Hormone 3rd Gen 1.170 uIU/ML 12/08/16 0715 Beta HCG, Qualitative LESS THAN 1 MIU/ML 12/08/16 0715 Urine Opiates Screen NEG 12/07/16 1800 Urine Barbiturates Screen NEG 12/07/16 1800 Urine Benzodiazepines Screen NEG 12/07/16 1800 Urine Amphetamines Screen NEG 12/07/16 1800 Urine Cocaine Screen NEG 12/07/16 1800 Urine Cannabinoids Screen NEG 12/07/16 1800 Ethyl Alcohol Level LESS THAN 3 MG/DL 12/07/16 1800 Summary of Procedures None done Imaging None done Pending results at discharge: No Medications # of Antipsychotic meds at D/C: 2 Appropriate >1 Antipsych meds?: 4 Approp Antipsych med options 1 - Minimum of three failed multiple trials of monotherapy. 2 - Documented plan to taper to monotherapy due to previous use of multiple meds OR cross-taper in progress at D/C. 3 - Documentation of augmentation of Clozapine. 4 - Justification other than those listed in allowable values 1-3, document here : Prior to admission regimen Discharge Discharge Date: Dec 14, 2016 Discharge Diagnosis: (1) Other psychotic disorder not due to a substance or known physiological condition Diagnosis: Principal (stabilized) ICD Code: F28 (2) Other mixed anxiety disorders Diagnosis: Secondary (stabilized) ICD Code: F41.3 GAF on discharge is 60. Mental Status Exam at Disch Patient is casually dressed. She is well groomed. She is awake and alert and oriented to person and hospital at least. No evidence of delirium. No abnormal motor movements noted. Speech is within normal limits for rate, tone and volume. Language and fund of knowledge seem average. Mood is good and affect is full and reactive. Thought process linear. No loosening of associations. No evident delusions. Denies audiovisual hallucinations. Denies suicidal or homicidal ideation. Insight and judgment are fair. Pt Condition on Discharge: Stable Discharge Disposition: Discharge Home Discharge Instructions Diet Instructions: As Tolerated, No Restrictions Activities you can perform: Weight Bearing as Tom Scheduled Appointment: [facility] Appointment Date: Dec 20, 2016 Appointment Time: 1145 New Medications: Aripiprazole (Aripiprazole) 5 Mg Tab 5 MG PO DAILY Mental Health Days 15 Ref 1 TAB Cephalexin (Cephalexin) 500 Mg Cap 500 MG PO Q6HR Paronychia Days 10 Ref 0 CAP Escitalopram (Escitalopram) 10 Mg Tab 10 MG PO DAILY Mental Health Days 15 Ref 1 TAB Lorazepam (Ativan) 0.5 Mg Tab 0.5 MG PO BID@09,18 Mental Health Days 15 Ref 1 TAB Continued Medications: Benztropine (Benztropine) 1 Mg Tab 1 MG PO HS #30 Ref 0 TAB Buspirone (Buspirone) 10 Mg Tab 10 MG PO TID Anxiety Ref 0 TAB Levothyroxine (Levothyroxine) 88 Mcg Tab 88 MCG PO DAILY Thyroid #30 Ref 0 TAB Olanzapine (Olanzapine) 20 Mg Tab 20 MG PO HS #30 Ref 0 TAB Discontinued Medications: Aripiprazole (Aripiprazole) 20 Mg Tab 20 MG PO DAILY #30 Ref 0 TAB Bupropion HCl (Bupropion HCl) 100 Mg Tab 300 MG PO DAILY Control Depression Ref 0 TAB Lorazepam (Lorazepam) 0.5 Mg Tab 0.5 MG PO DAILY PRN ANXIETY Ref 0 TAB Discharge Time <= 30 minutes Discharge/Advance Care Plan Health Problems: (1) Other psychotic disorder not due to a substance or known physiological condition (2) Other mixed anxiety disorders Goals to promote your health * To prevent worsening of your condition and complications * To maintain your health at the optimal level Directions to meet your goals Take your medications as prescribed Follow your dietary instruction Follow activity as directed Keep your appointments as scheduled Take your immunizations and boosters as scheduled If your symptoms worsen call your PCP, if no PCP go to Urgent Care Center or Emergency Room For 30/05 questions related to your inpatient stay or results of tests pending at discharge, please contact Dr. Abdulaziz Brown at Smoking is Dangerous to Your Health. Avoid second hand smoking Abdulaziz Brown MD Dec 14, 2016 13:56
== END 2016-12-14 17:45 | disposition home or self-care (01) | DRG 885 ==
LOC: NEPJ 14:52 → NEDA 20:38 → H270 21:33 → H260 12-08 18:09
PROVIDERS: ADMIT Psychiatry & Neurology Psychiatry; ATTEND Psychiatry & Neurology Psychiatry
DX: F28 Other psychotic disorder not due to a substance or known physiological condition (principal); E03.9 Hypothyroidism, unspecified; F41.9 Anxiety disorder, unspecified; F41.3 Other mixed anxiety disorders; Z81.8 Family history of other mental and behavioral disorders; L03.011 Cellulitis of right finger
CPT/HCPCS: 80048; 80061; 80307; 80320; 81001; 83036; 84443; 84703; 85025; 96374; 96375; J2405; J7030

== ENCOUNTER 2017-06-29 17:51 | Emergency (ER) | payer MEDICAID, OTHER ==
[~2017-06-29] VITALS: Ht 157.5 cm; Wt 68.0 kg
[~2017-06-29 17:51] MED LIST: ARIP1TAB11 PO; BENZ1TAB PO; BUSP10TA PO; CEPH500C PO; ESCI10TA PO; LEVO88TA2 PO; LORA-392 PO; OLAN20TA PO
[2017-06-29 17:54] VITALS: BP 132/79; PULSE 80; RESP 20; TEMP 98.7; O2SAT 99
[2017-06-29 19:00] LABS: BACTERIA, URINE MANY /hpf; BLOOD, URINE SMALL (NEG); COMMENT (UR) CULTURE INDICATED; CULTURE IF INDICATED CULTURE INDICATED; GLUCOSE,URINE NEG (NEG); KETONE, URINE NEG (NEG); NITRITE,URINE NEG (NEG); PH, URINE 6.5 (5.0-8.5); SQUAMOUS EPITHELIAL CELL URINE 9 /hpf (0-5); URINE COLOR LIGHT-YELLOW (YELLW/STRAW)
[2017-06-29 19:19] LABS: AUTOMATED NEUTROPHIL # 5.2 TH/MM3 (1.8-7.7); BASOPHIL % 0.1 % (0.0-2.0); EOSINOPHIL % 0.2 % (0.0-4.0); HEMO FLAGS AUTO DIFF; LYMPH % 29.5 % (9.0-44.0); LYMPHOCYTE # 2.6 TH/MM3 (1.0-4.8); MEAN CORPUSCULAR HEMOGLOBIN 30.8 PG (27.0-34.0); MEAN CORPUSCULAR HGB CONC 35.4 % (32.0-36.0); MONO % 11.5 % (0.0-8.0); NEUT % 58.7 % (16.0-70.0); PLATELET COUNT 264 TH/MM3 (150-450); RED BLOOD COUNT 4.72 MIL/MM3 (4.00-5.30); RED CELL DISTRIBUTION WIDTH 12.7 % (11.6-17.2); WHITE BLOOD COUNT 8.8 TH/MM3 (4.0-11.0)
[2017-06-29 19:24] LABS: ANION GAP 10 MEQ/L (5-15); AST (GOT) 30 U/L (15-37); BICARBONATE 26.5 MEQ/L (21.0-32.0); BLOOD UREA NITROGEN 10 MG/DL (7-18); CHLORIDE 92 MEQ/L (98-107); GLOMERULAR FILTRATION RATE 79 ML/MIN (>89); POTASSIUM 3.3 MEQ/L (3.5-5.1); SODIUM (NA) 128 MEQ/L (136-145)
[2017-06-29 19:25] LABS: ALT (GPT) 24 U/L (10-53)
[2017-06-29 19:27] LABS: ALKALINE PHOSPHATASE 83 U/L (45-117); TOTAL BILIRUBIN ADULT 1.4 MG/DL (0.2-1.0)
[2017-06-29 20:27] LABS: PLATELET ESTIMATE SMEAR NORMAL (NORMAL); PLATELET MORPHOLOGY NORMAL (NORMAL); SCAN/DIFF AUTO DIFF CONFIRMED
--- NOTE | 2017-06-29 20:36 | PD ---
HPI Chief Complaint: Psychiatric Symptoms Time Seen by Provider: 20:34 Travel History International Travel<30 days: No Contact w/Intl Traveler<30days: No Traveled to known affect area: No History of Present Illness HPI 47-year-old female with PMH of schizoaffective disorder and anxiety presents to the ED for evaluation of increased anxiety and delusional thought processes. The patient's 2 daughters and son are at bedside and helped to provide the history. They state that over the last week the patient has become increasingly agitated and fixated on delusions that her son is being persecuted , mugged, "jumped", injured in some way. These delusions are so strong that the patient is "blowing up the family phones" and calling the school repeatedly to check in on her son. She also called the police to the house. The family thinks that these delusions may be due to the son's recent return to school. Patient's daughter also endorses aggressive behavior towards herself and the patient's elderly mother. The patient is under care of a psychiatrist and recently had some adjustments to her medications. The patient endorses hearing voices that tell her that her son is coming to harm. She denies somatic complaints. She endorses compliance with her daily medications. PFSH Past Medical History Anxiety: Yes Diabetes: No Diminished Hearing: No Hypertension: No Insomnia: Yes Psychiatric: Yes Schizophrenia: Yes (PER FAMILY) Seizures: No Thyroid Disease: Yes (HYPO) LMP: na Social History Alcohol Use: No Tobacco Use: No Substance Use: No Allergies-Medications (Allergen,Severity, Reaction): Coded Allergies: No Known Allergies (Unverified , 06/29/17) Reported Meds & Prescriptions Reported Meds & Active Scripts Active Escitalopram (Escitalopram Oxalate) 10 Mg Tab 10 Mg PO DAILY 15 Days Reported Benztropine (Benztropine Mesylate) 0.5 Mg Tab 1 Mg PO DAILY Lorazepam 1 Mg Tab 1 Mg PO BID PRN Levothyroxine (Levothyroxine Sodium) 88 Mcg Tab 88 Mcg PO DAILY Buspirone (Buspirone HCl) 10 Mg Tab 10 Mg PO BID Review of Systems Except as stated in HPI: all other systems reviewed are Neg Physical Exam Narrative GENERAL: Well-nourished, well-developed petite female in no acute distress. SKIN: Focused skin assessment warm/dry. HEAD: Normocephalic. EYES: No scleral icterus. No injection or drainage. NECK: Supple, trachea midline. No JVD or lymphadenopathy. CARDIOVASCULAR: Regular rate and rhythm without murmurs, gallops, or rubs. RESPIRATORY: Breath sounds clear and equal bilaterally. No accessory muscle use. GASTROINTESTINAL: Abdomen soft, non-tender, nondistended. Active bowel sounds. MUSCULOSKELETAL: No cyanosis, or edema. BACK: Nontender without obvious deformity. No CVA tenderness. Data Data Last Documented VS Vital Signs Date Time Temp Pulse Resp B/P (MAP) Pulse Ox O2 Delivery O2 Flow Rate FiO2 06/30/17 06:26 90 18 146/78 (100) 99 06/30/17 00:16 Room Air 06/29/17 17:54 98.7 Orders Orders Complete Blood Count With Diff (06/29/17 18:05) Comprehensive Metabolic Panel (06/29/17 18:05) Urinalysis - C+S If Indicated (06/29/17 18:05) Psych Screen (06/29/17 18:05) Drug Screen, Random Urine (06/29/17 18:05) Urine Culture (06/29/17 18:17) Sodium Chlor 0.9% 1000 Ml Inj (Ns 1000 M (06/29/17 20:45) Potassium Chloride (Kcl) (06/29/17 20:45) Sulfamet-Trimeth Ds 800-160 Mg (Bactrim (06/29/17 20:45) Lorazepam (Ativan) (06/29/17 21:30) Diet Regular Basic (06/30/17 Breakfast) Levothyroxine (Synthroid) (06/30/17 10:00) Labs Laboratory Tests Test 06/29/17 18:17 White Blood Count 8.8 TH/MM3 Red Blood Count 4.72 MIL/MM3 Hemoglobin 14.5 GM/DL Hematocrit 41.0 % Mean Corpuscular Volume 87.0 FL Mean Corpuscular Hemoglobin 30.8 PG Mean Corpuscular Hemoglobin Concent 35.4 % Red Cell Distribution Width 12.7 % Platelet Count 264 TH/MM3 Mean Platelet Volume 7.5 FL Neutrophils (%) (Auto) 58.7 % Lymphocytes (%) (Auto) 29.5 % Monocytes (%) (Auto) 11.5 % Eosinophils (%) (Auto) 0.2 % Basophils (%) (Auto) 0.1 % Neutrophils # (Auto) 5.2 TH/MM3 Lymphocytes # (Auto) 2.6 TH/MM3 Monocytes # (Auto) 1.0 TH/MM3 Eosinophils # (Auto) 0.0 TH/MM3 Basophils # (Auto) 0.0 TH/MM3 CBC Comment AUTO DIFF Differential Comment AUTO DIFF CONFIRMED Platelet Estimate NORMAL Platelet Morphology Comment NORMAL Urine Color LIGHT-YELLOW Urine Turbidity HAZY Urine pH 6.5 Urine Specific [place] 1.006 Urine Protein NEG mg/dL Urine Glucose (UA) NEG mg/dL Urine Ketones NEG mg/dL Urine Occult Blood SMALL Urine Nitrite NEG Urine Bilirubin NEG Urine Urobilinogen LESS THAN 2.0 MG/DL Urine Leukocyte Esterase MOD Urine RBC 4 /hpf Urine WBC 6 /hpf Urine Squamous Epithelial Cells 9 /hpf Urine Bacteria MANY /hpf Microscopic Urinalysis Comment CULTURE INDICATED Blood Urea Nitrogen 10 MG/DL Creatinine 0.78 MG/DL Random Glucose 107 MG/DL Total Protein 8.2 GM/DL Albumin 4.4 GM/DL Calcium Level 9.8 MG/DL Alkaline Phosphatase 83 U/L Aspartate Amino Transf (AST/SGOT) 30 U/L Alanine Aminotransferase (ALT/SGPT) 24 U/L Total Bilirubin 1.4 MG/DL Sodium Level 128 MEQ/L Potassium Level 3.3 MEQ/L Chloride Level 92 MEQ/L Carbon Dioxide Level 26.5 MEQ/L Anion Gap 10 MEQ/L Estimat Glomerular Filtration Rate 79 ML/MIN Urine Opiates Screen NEG Urine Barbiturates Screen NEG Urine Amphetamines Screen NEG Urine Benzodiazepines Screen NEG Urine Cocaine Screen NEG Urine Cannabinoids Screen NEG MDM Medical Decision Making Medical Screen Exam Complete: Yes Emergency Medical Condition: Yes Differential Diagnosis Adjustment disorder versus anxiety versus bipolar versus depression versus dementia versus electrolyte disorder versus malingering versus mood disorder versus ODD versus psychosis versus PTSD versus schizophrenia versus schizoaffective disorder versus substance-induced mood disorder versus other Narrative Course 47-year-old female with PMH of schizoaffective disorder and anxiety presents to the ED for evaluation of increased anxiety and delusional thought processes. The patient's 2 daughters and son are at bedside and helped to provide the history. They state that over the last week the patient has become increasingly agitated and fixated on delusions that her son is being persecuted , mugged, "jumped", injured in some way. These delusions are so strong that the patient is "blowing up the family phones" and calling the school repeatedly to check in on her son. She also called the police to the house. The family thinks that these delusions may be due to the son's recent return to school. Patient's daughter also endorses aggressive behavior towards herself and the patient's elderly mother. The patient is under care of a psychiatrist and recently had some adjustments to her medications. The patient endorses hearing voices that tell her that her son is coming to harm. She denies somatic complaints. She endorses compliance with her daily medications. Vitals reviewed. Physical exam otherwise unremarkable. Due to the patient's delusions and anxiety she was placed under Steven act. Patient found to be mildly hyponatremic, mildly hypokalemic and have a mild UTI. She is administered a liter of normal saline IV, 40 mEq of potassium and Bactrim DS by mouth. Prescription provided for Bactrim DS twice a day 3 days. She is administered 0.5 mg Ativan by mouth. She is medically clear for psychiatric evaluation. Please see psychiatric note for disposition. Diagnosis Primary Impression: Hyponatremia Additional Impressions: Hypokalemia Medical clearance for psychiatric admission Urinary tract infection Qualified Codes: N39.0 - Urinary tract infection, site not specified Lynne Hernandez Jun 29, 2017 20:36
[2017-06-29] MEDS ORDERED: POTASSIUM CHLORIDE 20 MEQ CONTROLLED RELEASE TAB PO ONE (20:45)
[2017-06-29] MEDS ORDERED: SODIUM CHLOR 0.9% 1000 ML INJ 1,000 ML IV ONE (20:45)
[2017-06-29] MEDS ORDERED: SULFAMETHOXAZOLE-TRIMETHOPRIM DS 800-160 MG TAB PO ONE (20:45)
[2017-06-29 21:13] VITALS: BP 108/72; O2SAT 96
[2017-06-29] MEDS ORDERED: BACT800T5 PO (21:19)
[2017-06-29 21:20] VITALS: BP 108/72; PULSE 71; RESP 16; O2SAT 96
[2017-06-29] MEDS ORDERED: BENZ0.5T PO (21:26)
[2017-06-29] MEDS ORDERED: LORA1TAB12 PO (21:26)
[2017-06-29] MEDS ORDERED: LORazepam 0.5 MG TAB PO ONE (21:30)
[2017-06-30 00:16] VITALS: BP 133/82; PULSE 75; RESP 18; O2SAT 99
[2017-06-30 02:46] VITALS: BP 128/72; PULSE 97; RESP 16; O2SAT 99
[2017-06-30 06:26] VITALS: BP 146/78; PULSE 90; RESP 18; O2SAT 99
[2017-06-30] MEDS ORDERED: LEVOTHYROXINE SODIUM 88 MCG TAB PO SCH (10:00)
[2017-06-30 11:48] VITALS: BP 139/81; PULSE 77; RESP 17; O2SAT 98
--- NOTE | 2017-06-30 15:30 | PD ---
History of Present Illness Chief Complaint: Psychiatric Symptoms Time Seen by Provider: 15:15 Travel History International Travel<30 Days: No Contact w/Intl Traveler<30days: No Known affected area: No Legal Status Legal Status: Involuntary Steven Act Signed By: Vilma HOLLEY Steven Act Comment: CERIFICATE OF PROFESSIONAL INITIATING INVOLUNTARY EXAMINATION06/29/17@2108 History of Present Illness: History of Present Illness 47-year-old female with PMH of psychotic disorder , nos and anxiety disorder who presents to the ED for evaluation of increased anxiety and delusional thought processes. As per ED documentation which is reviewed The patient's family reported that" over the last week the patient has become increasingly agitated and fixated on delusions that her son is being persecuted, mugged, "jumped", injured in some way. These delusions are so strong that the patient is "blowing up the family phones" and calling the school repeatedly to check in on her son. She also called the police to the house. The family thinks that these delusions may be due to the son's recent return to school. Patient's daughter also endorses aggressive behavior towards herself and the patient's elderly mother." The patient w as placed under a PC by ed provider. EMR is reviewed. She has one previous admission to [facility] psychiat[facility] in Nov under the care of Dr. Brown. Patient has been monitored in [facility]. She has been anxious and makes frequent requests from staff and requires redirection. She has not been agitated and has not been aggressive. Patient seen. She is awake and alert. Dressed in [facility]. She is anxious. her speech is clear and logical. She prefers to communicate in [place]. She denies current hallucinations. States that she worries over her son who is in school. She reports medication compliance and states " I get like that when I don;t take my medication" and clarifies by saying " I worry a lot and I get nervous and I have to call my family to make sure they are ok" . She does not verbalize any delusional thoughts . There is no psychosis and no cal. No suicidal or homicidal ideation, intent or plan. Telephone call to her daughter; at [phone]. She reports that the patient has been more agitated in the past few days with worry over her son. I have recommended that she follow up with outpatient psychiatrist for medication adjustment if necessary. She will pick her up after she gets out of work at 5 00 pm. PFSH Past Medical History Anxiety: Yes Diabetes: No Diminished Hearing: No Hypertension: No Insomnia: Yes Psychiatric: Yes Schizophrenia: Yes (PER FAMILY) Seizures: No Thyroid Disease: Yes (HYPO) ?: Unknown LMP: na Past Surgical History Surgical History: No Previous Surgery Psychiatric History Psychiatric History Hx Psychiatric Treatment: as per daughter first psychotic episode 17 years ago after th of her son. Was at [facility] 3 years ago Last hosp at [facility] 2016. Currently seen by [facility] Psychiatric. History of Inpatient Treatment: Yes Guns or firearms in home: No Social History female.Lives with her family. Unemployed. Hx Alcohol Use: No Hx Tobacco Use: No Hx Substance Use: No Hx of Substance Use Treatment: No Family Psychiatric History Negative Allergies-Medications (Allergen,Severity, Reaction): Coded Allergies: No Known Allergies (Unverified , 06/29/17) Reported Meds & Prescriptions Reported Meds & Active Scripts Active Escitalopram (Escitalopram Oxalate) 10 Mg Tab 10 Mg PO DAILY 15 Days Reported Benztropine (Benztropine Mesylate) 0.5 Mg Tab 1 Mg PO DAILY Lorazepam 1 Mg Tab 1 Mg PO BID PRN Levothyroxine (Levothyroxine Sodium) 88 Mcg Tab 88 Mcg PO DAILY Buspirone (Buspirone HCl) 10 Mg Tab 10 Mg PO BID Review of Systems Except as stated in HPI: all other systems reviewed are Neg Exam Alert: Yes [place]: Person (ox4) Mood: Anxious Affect: Appropriate Speech: Clear, Logical (In [place]) Eye Contact: Normal Memory Intact: Immediate, Comment (No impairmetn) Hallucinations: Other (Negative) Delusions: No Suicidal: Ideation (Deneis any) Homicidal: Ideation (deneis any) Insight/Judgement Poor. Not impaired [facility] Medical Decision Making Medical Record Reviewed: Yes Assessment/Plan 47-year-old female with PMH of psychotic disorder , nos and anxiety disorder who presents to the ED for evaluation of increased anxiety and delusional thought processes. I believe her symptoms are related to her degreeof anxiety and not true psychotic in nature. Patient was monitored and she did not present any psychosis, no cal and no agitation. There is no suicidal or homicidal ideation, intent or plan. Colleen PALMER. Discharge and follow up with outpatient psychiatrist. Orders Orders Complete Blood Count With Diff (06/29/17 18:05) Comprehensive Metabolic Panel (06/29/17 18:05) Urinalysis - C+S If Indicated (06/29/17 18:05) Psych Screen (06/29/17 18:05) Drug Screen, Random Urine (06/29/17 18:05) Urine Culture (06/29/17 18:17) Sodium Chlor 0.9% 1000 Ml Inj (Ns 1000 M (06/29/17 20:45) Potassium Chloride (Kcl) (06/29/17 20:45) Sulfamet-Trimeth Ds 800-160 Mg (Bactrim (06/29/17 20:45) Lorazepam (Ativan) (06/29/17 21:30) Diet Regular Basic (06/30/17 Breakfast) Levothyroxine (Synthroid) (06/30/17 10:00) Diet Regular Basic (06/30/17 Lunch) Results Vital Signs Date Time Temp Pulse Resp B/P (MAP) Pulse Ox O2 Delivery O2 Flow Rate FiO2 06/30/17 11:48 77 17 139/81 (100) 98 06/30/17 06:26 90 18 146/78 (100) 99 06/30/17 02:46 97 16 128/72 (90) 99 06/30/17 00:16 75 18 133/82 (99) 99 Room Air 06/29/17 21:20 71 16 108/72 (84) 96 Room Air 06/29/17 21:13 74 16 108/72 (84) 96 06/29/17 17:54 98.7 80 20 132/79 (96) 99 Room Air Laboratory Tests Test 06/29/17 18:17 White Blood Count 8.8 Red Blood Count 4.72 Hemoglobin 14.5 Hematocrit 41.0 Mean Corpuscular Volume 87.0 Mean Corpuscular Hemoglobin 30.8 Mean Corpuscular Hemoglobin Concent 35.4 Red Cell Distribution Width 12.7 Platelet Count 264 Mean Platelet Volume 7.5 Neutrophils (%) (Auto) 58.7 Lymphocytes (%) (Auto) 29.5 Monocytes (%) (Auto) 11.5 Eosinophils (%) (Auto) 0.2 Basophils (%) (Auto) 0.1 Neutrophils # (Auto) 5.2 Lymphocytes # (Auto) 2.6 Monocytes # (Auto) 1.0 Eosinophils # (Auto) 0.0 Basophils # (Auto) 0.0 CBC Comment AUTO DIFF Differential Comment AUTO DIFF CONFIRMED Platelet Estimate NORMAL Platelet Morphology Comment NORMAL Urine Color LIGHT-YELLOW Urine Turbidity HAZY Urine pH 6.5 Urine Specific [employer] 1.006 Urine Protein NEG Urine Glucose (UA) NEG Urine Ketones NEG Urine Occult Blood SMALL Urine Nitrite NEG Urine Bilirubin NEG Urine Urobilinogen LESS THAN 2.0 Urine Leukocyte Esterase MOD Urine RBC 4 Urine WBC 6 Urine Squamous Epithelial Cells 9 Urine Bacteria MANY Microscopic Urinalysis Comment CULTURE INDICATED Blood Urea Nitrogen 10 Creatinine 0.78 Random Glucose 107 Total Protein 8.2 Albumin 4.4 Calcium Level 9.8 Alkaline Phosphatase 83 Aspartate Amino Transf (AST/SGOT) 30 Alanine Aminotransferase (ALT/SGPT) 24 Total Bilirubin 1.4 Sodium Level 128 Potassium Level 3.3 Chloride Level 92 Carbon Dioxide Level 26.5 Anion Gap 10 Estimat Glomerular Filtration Rate 79 Urine Opiates Screen NEG Urine Barbiturates Screen NEG Urine Amphetamines Screen NEG Urine Benzodiazepines Screen NEG Urine Cocaine Screen NEG Urine Cannabinoids Screen NEG Date/Time Source Procedure Growth Status 06/29/17 18:17 Urine Random Urine Urine Culture - Preliminary IMMATURE GROWTH - REINCUBATE Resulted Diagnosis Primary Impression: Other mixed anxiety disorders Additional Impression: Urinary tract infection Psychiatrically Cleared: Yes Med/ Other Pt Specific Info: No Change to Meds Disposition: 01 DISCHARGE HOME Condition: Stable Problem Qualifiers Additional Impression: Urinary tract infection Qualified Codes: N39.0 - Urinary tract infection, site not specified Leti Tao Jun 30, 2017 15:30
[2017-06-30] MEDS ORDERED: LORazepam 1 MG TAB PO ONE (16:00)
[2017-06-30 16:26] VITALS: BP 164/82; PULSE 72; RESP 17; TEMP 97.2; O2SAT 98
[2017-06-30] MEDS ORDERED: busPIRone HCL 10 MG TAB PO SCH (21:00)
== END 2017-06-30 18:40 | disposition home or self-care (01) ==
LOC: NEPD 17:51 → NEPJ 06-30 18:40
DX: F41.3 Other mixed anxiety disorders (principal); N39.0 Urinary tract infection, site not specified; B96.89 Other specified bacterial agents as the cause of diseases classified elsewhere; E87.1 Hypo-osmolality and hyponatremia; E87.6 Hypokalemia; Z79.899 Other long term (current) drug therapy
CPT/HCPCS: 80053; 80307; 81001; 85025; 87086; 96360; 99284; J7030

== ENCOUNTER 2017-07-13 08:13 | Inpatient (IN) | payer MEDICAID, OTHER ==
[~2017-07-13 08:13] MED LIST changes: -ARIP1TAB11 PO; +BENZ0.5T PO; -BENZ1TAB PO; -CEPH500C PO; -LORA-392 PO; +LORA1TAB12 PO; -OLAN20TA PO
[2017-07-13 08:14] VITALS: BP 172/99; PULSE 88; RESP 20; TEMP 99; O2SAT 92
[2017-07-13 10:02] LABS: AUTOMATED NEUTROPHIL # 6.5 TH/MM3 (1.8-7.7); BASOPHIL % 0.1 % (0.0-2.0); EOSINOPHIL % 0.1 % (0.0-4.0); HEMATOCRIT 41.5 % (35.0-46.0); HEMO FLAGS DIFF FINAL; LYMPH % 18.9 % (9.0-44.0); LYMPHOCYTE # 1.7 TH/MM3 (1.0-4.8); MEAN CELL VOLUME 87.5 FL (80.0-100.0); MEAN CORPUSCULAR HEMOGLOBIN 30.2 PG (27.0-34.0); MEAN CORPUSCULAR HGB CONC 34.5 % (32.0-36.0); MONO % 8.3 % (0.0-8.0); NEUT % 72.6 % (16.0-70.0); PLATELET COUNT 325 TH/MM3 (150-450); RED BLOOD COUNT 4.75 MIL/MM3 (4.00-5.30); RED CELL DISTRIBUTION WIDTH 12.8 % (11.6-17.2)
[2017-07-13 10:14] LABS: ALT (GPT) 23 U/L (10-53); ANION GAP 8 MEQ/L (5-15); AST (GOT) 20 U/L (15-37); BICARBONATE 25.3 MEQ/L (21.0-32.0); BLOOD UREA NITROGEN 11 MG/DL (7-18); CHLORIDE 103 MEQ/L (98-107); GLOMERULAR FILTRATION RATE 99 ML/MIN (>89); POTASSIUM 3.5 MEQ/L (3.5-5.1); SODIUM (NA) 136 MEQ/L (136-145)
[2017-07-13 10:16] LABS: ALKALINE PHOSPHATASE 82 U/L (45-117)
--- NOTE | 2017-07-13 10:30 | PD ---
HPI Chief Complaint: Medical Clearance Time Seen by Provider: 08:30 Travel History International Travel<30 days: No Contact w/Intl Traveler<30days: No History of Present Illness HPI The 47-year-old woman with a history of psychotic disease, diagnosis schizophrenia/schizoaffective disorder, apparently onset after an episode of depression, presents to the emergency department brought in by her family for increasing aggressive behavior, paranoid behavior, grabbing weapons in the house, and a preoccupation with her son's safety. The daughter apparently brought her in previously week or so ago with similar symptoms. She states since that time he getting slowly worse. She is taking her medications as currently prescribed. She requires a lot of prompting to take her medications or eat. No other recent illness or injury. History Past Medical History Narrative Medical Schizoaffective disorder Social History Alcohol Use: No Tobacco Use: No Allergies-Medications (Allergen,Severity, Reaction): Coded Allergies: No Known Allergies (Unverified , 06/29/17) Reported Meds & Prescriptions Reported Meds & Active Scripts Active Escitalopram (Escitalopram Oxalate) 10 Mg Tab 10 Mg PO DAILY 15 Days Reported Benztropine (Benztropine Mesylate) 0.5 Mg Tab 1 Mg PO DAILY Lorazepam 1 Mg Tab 1 Mg PO BID PRN Levothyroxine (Levothyroxine Sodium) 88 Mcg Tab 88 Mcg PO DAILY Buspirone (Buspirone HCl) 10 Mg Tab 10 Mg PO BID Review of Systems Except as stated in HPI: all other systems reviewed are Neg Physical Exam Narrative GENERAL: 47 year-old woman, no acute distress. SKIN: Focused skin assessment warm/dry. HEAD: Atraumatic. Normocephalic. EYES: Pupils equal and round. No scleral icterus. No injection or drainage. ENT: No nasal bleeding or discharge. Mucous membranes pink and moist. NECK: Trachea midline. No JVD. CARDIOVASCULAR: Regular rate and rhythm. No murmur appreciated. RESPIRATORY: No accessory muscle use. Clear to auscultation. Breath sounds equal bilaterally. GASTROINTESTINAL: Abdomen soft, non-tender, nondistended. Hepatic and splenic margins not palpable. MUSCULOSKELETAL: No obvious deformities. No edema. NEUROLOGICAL: Awake and alert. No obvious cranial nerve deficits. Motor grossly within normal limits. Normal speech. Data Data Last Documented VS Vital Signs Date Time Temp Pulse Resp B/P (MAP) Pulse Ox O2 Delivery O2 Flow Rate FiO2 07/13/17 08:14 99.0 88 20 172/99 (123) 92 Room Air Orders Orders Complete Blood Count With Diff (07/13/17 09:27) Comprehensive Metabolic Panel (07/13/17 09:27) Psych Screen (07/13/17 09:27) Drug Screen, Random Urine (07/13/17 09:27) Labs Laboratory Tests Test 07/13/17 09:00 07/13/17 10:05 White Blood Count 9.0 TH/MM3 Red Blood Count 4.75 MIL/MM3 Hemoglobin 14.3 GM/DL Hematocrit 41.5 % Mean Corpuscular Volume 87.5 FL Mean Corpuscular Hemoglobin 30.2 PG Mean Corpuscular Hemoglobin Concent 34.5 % Red Cell Distribution Width 12.8 % Platelet Count 325 TH/MM3 Mean Platelet Volume 7.0 FL Neutrophils (%) (Auto) 72.6 % Lymphocytes (%) (Auto) 18.9 % Monocytes (%) (Auto) 8.3 % Eosinophils (%) (Auto) 0.1 % Basophils (%) (Auto) 0.1 % Neutrophils # (Auto) 6.5 TH/MM3 Lymphocytes # (Auto) 1.7 TH/MM3 Monocytes # (Auto) 0.7 TH/MM3 Eosinophils # (Auto) 0.0 TH/MM3 Basophils # (Auto) 0.0 TH/MM3 CBC Comment DIFF FINAL Differential Comment Blood Urea Nitrogen 11 MG/DL Creatinine 0.64 MG/DL Random Glucose 93 MG/DL Total Protein 8.2 GM/DL Albumin 4.2 GM/DL Calcium Level 9.5 MG/DL Alkaline Phosphatase 82 U/L Aspartate Amino Transf (AST/SGOT) 20 U/L Alanine Aminotransferase (ALT/SGPT) 23 U/L Total Bilirubin 1.0 MG/DL Sodium Level 136 MEQ/L Potassium Level 3.5 MEQ/L Chloride Level 103 MEQ/L Carbon Dioxide Level 25.3 MEQ/L Anion Gap 8 MEQ/L Estimat Glomerular Filtration Rate 99 ML/MIN [facility] Medical Decision Making Medical Screen Exam Complete: Yes Emergency Medical Condition: Yes Differential Diagnosis Paranoia, psychotic disease, other Narrative Course Medical decision making INITIAL: The 47 year-old woman who presents to the emergency department for increasing paranoid and aggressive behavior. She is medically clear. Psych screening. Ra Moise MD Jul 13, 2017 10:30
[2017-07-13 11:24] VITALS: BP 132/76; PULSE 78; RESP 18; O2SAT 98
[2017-07-13] MEDS ORDERED: MAGNESIUM HYDROXIDE SUSP 30 ML CUP PO PRN (15:00)
[2017-07-13] MEDS ORDERED: ALUMINUM/MAGNESIUM/SIMETH 30 ML CUP PO PRN (15:00)
[2017-07-13 15:12] VITALS: BP 127/74
[2017-07-13 15:21] VITALS: BP 167/103; PULSE 88; RESP 16; TEMP 97.7
[2017-07-13] MEDS ORDERED: cloNIDine HCL 0.1 MG TAB PO STA (15:39)
--- NOTE | 2017-07-13 16:50 | PD.CONS ---
[facility] By Dr. Junaid Stevenson Reason for Consult Medical Management Primary Care Physician Unknown Diagnoses: History of Present Illness This is a pleasant 47 y/o Female with Schizophrenia/Schizoaffective Disorder, after Episode of Psychosis, apparent started after an episode of depression, presents to the emergency department brought in by her family for increasing aggressive behavior, paranoid behavior, grabbing weapons in the house, and a preoccupation with her son's safety. The daughter apparently brought her in previously week or so ago with similar symptoms. Seen in Psychiatric unit in the presence at all times of Nurse Mr. Yusuf, patient stable answered my questions without difficulty Review of Systems Constitutional: DENIES: Fever, Chills, Change in appetite Endocrine: DENIES: Heat/cold intolerance Eyes: DENIES: Blurred vision, Eye pain Except as stated in HPI: all other systems reviewed are Neg Past Family Social History Allergies: Coded Allergies: No Known Allergies (Unverified , 07/13/17) Past Medical History Schizoaffective Disorder/Schizophrenia Hypothyroidism, Past Surgical History Denies any surgical history Reported Medications Reported Meds & Active Scripts Active Escitalopram (Escitalopram Oxalate) 10 Mg Tab 10 Mg PO DAILY 15 Days Reported Benztropine (Benztropine Mesylate) 0.5 Mg Tab 1 Mg PO DAILY Lorazepam 1 Mg Tab 1 Mg PO BID PRN Levothyroxine (Levothyroxine Sodium) 88 Mcg Tab 88 Mcg PO DAILY Buspirone (Buspirone HCl) 10 Mg Tab 10 Mg PO BID Active Ordered Medications Current Medications Medications (Trade) Dose Ordered Sig/Chyna Route Start Time Stop Time Status Last Admin (Ativan) 1 mg Q6H PRN PO 07/13/17 15:00 (Ativan Inj) 1 mg Q6H PRN IM 07/13/17 15:00 (Tylenol) 650 mg Q4H PRN PO 07/13/17 15:00 (Milk Of Magnesia Liq) 30 ml DAILY PRN PO 07/13/17 15:00 (Mag-Al Plus Susp Liq) 30 ml Q6H PRN PO 07/13/17 15:00 (Atarax) 50 mg Q6H PRN PO 07/13/17 15:00 (Synthroid) 88 mcg DAILY@0600 PO 07/14/17 06:00 (Abilify) 5 mg HS PO 07/13/17 21:00 Family History Mother with Hypothyroidism. Social History Lives with her Daughter and denies any toxic habit. Physical Exam Vital Signs Vital Signs Date Time Temp Pulse Resp B/P (MAP) Pulse Ox O2 Delivery O2 Flow Rate FiO2 07/13/17 15:21 97.7 88 16 167/103 (124) 07/13/17 15:12 78 18 127/74 (91) 98 07/13/17 11:24 78 18 132/76 (94) 98 Room Air 07/13/17 10:30 76 20 07/13/17 08:14 99.0 88 20 172/99 (123) 92 Room Air Physical Exam GENERAL: This is a well-nourished, well-developed patient, in no apparent distress. SKIN: No rashes, ecchymoses or lesions. Cool and dry. HEAD: Atraumatic. Normocephalic. No temporal or scalp tenderness. EYES: Pupils equal round and reactive. Extraocular motions intact. No scleral icterus. No injection or drainage. ENT: Nose without bleeding, purulent drainage or septal hematoma. Throat without erythema, tonsillar hypertrophy or exudate. Uvula midline. Airway patent. NECK: Trachea midline. No JVD or lymphadenopathy. Supple, nontender, no meningeal signs. CARDIOVASCULAR: Regular rate and rhythm without murmurs, gallops, or rubs. RESPIRATORY: Clear to auscultation. Breath sounds equal bilaterally. No wheezes , rales, or rhonchi. GASTROINTESTINAL: Abdomen soft, non-tender, nondistended. No hepato-splenomegaly , or palpable masses. No guarding. MUSCULOSKELETAL: Extremities without clubbing, cyanosis, or edema. No joint tenderness, effusion, or edema noted. No calf tenderness. Negative Homans sign bilaterally. NEUROLOGICAL: Awake and alert. Cranial nerves II through XII intact. Motor and sensory grossly within normal limits. Five out of 5 muscle strength in all muscle groups. Normal speech. Laboratory Laboratory Tests Test 07/13/17 09:00 07/13/17 10:05 White Blood Count 9.0 Red Blood Count 4.75 Hemoglobin 14.3 Hematocrit 41.5 Mean Corpuscular Volume 87.5 Mean Corpuscular Hemoglobin 30.2 Mean Corpuscular Hemoglobin Concent 34.5 Red Cell Distribution Width 12.8 Platelet Count 325 Mean Platelet Volume 7.0 Neutrophils (%) (Auto) 72.6 Lymphocytes (%) (Auto) 18.9 Monocytes (%) (Auto) 8.3 Eosinophils (%) (Auto) 0.1 Basophils (%) (Auto) 0.1 Neutrophils # (Auto) 6.5 Lymphocytes # (Auto) 1.7 Monocytes # (Auto) 0.7 Eosinophils # (Auto) 0.0 Basophils # (Auto) 0.0 CBC Comment DIFF FINAL Differential Comment Blood Urea Nitrogen 11 Creatinine 0.64 Random Glucose 93 Total Protein 8.2 Albumin 4.2 Calcium Level 9.5 Alkaline Phosphatase 82 Aspartate Amino Transf (AST/SGOT) 20 Alanine Aminotransferase (ALT/SGPT) 23 Total Bilirubin 1.0 Sodium Level 136 Potassium Level 3.5 Chloride Level 103 Carbon Dioxide Level 25.3 Anion Gap 8 Estimat Glomerular Filtration Rate 99 Urine Opiates Screen NEG Urine Barbiturates Screen NEG Urine Amphetamines Screen NEG Urine Benzodiazepines Screen NEG Urine Cocaine Screen NEG Urine Cannabinoids Screen NEG Result Diagram: 07/13/17 0900 07/13/17 0900 Imaging No Imaging studies. Assessment and Plan Assessment and Plan 1. Schizophrenia and Psychosis, continue Psychiatry specialist management 2. Hypothyroidism she already was recommended for some laboratory will follow laboratory 3. Hypertension she had some increased blood pressure and given Clonidine, continue present care not yet decided to start anti hypertensives unless sustained high blood pressure. no need for DVT prophylaxis giving recommendations based on laboratory and hospital Course. Code Status Full code. Discussed Condition With Patient and Nurse Macey Yusuf Manuel Maria MD Jul 13, 2017 16:49
--- NOTE | 2017-07-13 16:53 | HHI.HP ---
Provisional Diagnosis Admission Date Jul 13, 2017 at 14:47 Leon[place] I. Brief Psychotic Disorder Certification of Person's Competence To Provide Express and Informed Consent I have personally examined Miriam Emerson , a person being served at [facility] on, Jul 13, 2017 16:43. Express and informed consent means consent voluntarily given in writing, by a competent person, after sufficient explanation and disclosure of the subject matter involved to enable the person to make a knowing and willful decision without any element of force, fraud, deceit, duress, or other form of constraint or coercion. This person is 18 years of age or older, is not now known to be incompetent to consent to treatment with a guardian advocate, and does not have a health care surrogate or proxy currently making medical treatment decisions. I have found this person to be one of the following: [] Competent to provide express and informed consent, as defined above, for voluntary admission to this facility and is competent to provide express and informed consent for treatment. He/she has the consistent capacity to make well reasoned, willful, and knowing decisions concerning his or her medical or mental health treatment. The person fully and consistently understands the purpose of the admission for examination/placement and is fully capable of personally exercising all rights assured [place] [x] Incompetent to provide express and informed consent to voluntary admission, and this is incompetent to provide express and informed consent to treatment. The person must be transferred to involuntary status and a petition for a guardian advocate filed with the Circuit Court. [] Refusing to provide express and informed consent to voluntary admission but is competent to provide express and informed consent for treatment. The person must be discharged or transferred to involuntary status. Form shall be completed within 24 hours of a person's arrival at the receiving facility and filed in the clinical record of each person: 1. Admitted on a voluntary basis 2. Permitted to provide express and informed consent to his/her own treatment 3. Allowed to transfer from involuntary to voluntary status 4. Prior to permitting a person to consent to his or her own treatment after having been previously found incompetent to consent to treatment. History of Present Illness Capacity: Lacks Capacity HPI This is a 47-year-old female Steven acted by this physician for psychotic and dangerous behavior. Patient was brought in by her daughter after showing 2 weeks of decompensating behavior. Patient apparently is grabbing for weapons, including using a pipe to attack others. She yells out or screams nonsensically with no prompting. She has difficulty communicating secondary to loose associations and she is a poor historian. She is Citizen [place]-speaking only and unable to answer questions, primarily due to her psychosis. This is not her first such episode of psychotic thinking but the patient's daughter indicates she had an episode approximately 17 years ago after the of her son. At this point, the patient's psychotic symptoms are consistent with schizophrenia as the patient does not appear overly depressed. However, she remains paranoid, especially concerning the welfare of her son and she physically tries to prevent him from leaving the home. She bursts out phrases regarding yazdanism, devils, etc. which are nonsensical and the patient's daughter is unable to care for her. The patient was treated at [facility] and only recently given a prescription for low to. Prior to that she was treated with antidepressant and antianxiety medicine. She does not, however, have a history of alcohol or substance abuse. Patient does appear to be responding to internal stimuli during this interview. Review of Systems Except as stated in HPI: all other systems reviewed are Neg Past Psych History Psychological trauma history Denied for psychological trauma. Previous psychiatric treatment including at this facility and at [facility]. Violence risk - others (6 mos) High Violence risk - self (6 mos) High Substance Abuse History Drugs/Alcohol past 12 months Denied Past Family Social History Coded Allergies: No Known Allergies (Unverified , 07/13/17) Active Scripts Escitalopram (Escitalopram) 10 Mg Tab, 10 MG PO DAILY for Mental Health for 15 Days, TAB 1 Refill Prov:Abdulaziz Brown MD 12/14/16 Reported Medications Benztropine (Benztropine) 0.5 Mg Tab, 1 MG PO DAILY, #60 TAB 0 Refills 06/29/17 Lorazepam (Lorazepam) 1 Mg Tab, 1 MG PO BID Y for ANXIETY, TAB 0 Refills 06/29/17 Levothyroxine (Levothyroxine) 88 Mcg Tab, 88 MCG PO DAILY for Thyroid, #30 TAB 0 Refills 12/07/16 Buspirone (Buspirone) 10 Mg Tab, 10 MG PO BID for Anxiety, TAB 0 Refills 1/31/17 Current Medications Medications (Trade) Dose Ordered Sig/Chyna Route Start Time Stop Time Status Last Admin (Ativan) 1 mg Q6H PRN PO 07/13/17 15:00 (Ativan Inj) 1 mg Q6H PRN IM 07/13/17 15:00 (Tylenol) 650 mg Q4H PRN PO 07/13/17 15:00 (Milk Of Magnesia Liq) 30 ml DAILY PRN PO 07/13/17 15:00 (Mag-Al Plus Susp Liq) 30 ml Q6H PRN PO 07/13/17 15:00 (Atarax) 50 mg Q6H PRN PO 07/13/17 15:00 (Synthroid) 88 mcg DAILY@0600 PO 07/14/17 06:00 (Abilify) 5 mg HS PO 07/13/17 21:00 Family History Unknown history regarding psychotic illnesses in the family. Social History Patient not currently employed. She does have 2 children who are supportive of her. She does not have a history of alcoholism or drug abuse. Patient's Strengths (min. 2) Resilient and has access to healthcare. Physical Exam GENERAL: SKIN: Warm and dry. HEAD: Normocephalic. EYES: No scleral icterus. No injection or drainage. NECK: Supple, trachea midline. No JVD or lymphadenopathy. CARDIOVASCULAR: Regular rate and rhythm without murmurs, gallops, or rubs. RESPIRATORY: Breath sounds equal bilaterally. No accessory muscle use. GASTROINTESTINAL: Abdomen soft, non-tender, nondistended. MUSCULOSKELETAL: No cyanosis, or edema. BACK: Nontender without obvious deformity. No CVA tenderness. Vital Signs Vital Signs Date Time Temp Pulse Resp B/P (MAP) Pulse Ox O2 Delivery O2 Flow Rate FiO2 07/13/17 15:21 97.7 88 16 167/103 (124) 07/13/17 15:12 98 07/13/17 11:24 Room Air Lab Results Test 07/13/17 09:00 07/13/17 10:05 White Blood Count 9.0 TH/MM3 Red Blood Count 4.75 MIL/MM3 Hemoglobin 14.3 GM/DL Hematocrit 41.5 % Mean Corpuscular Volume 87.5 FL Mean Corpuscular Hemoglobin 30.2 PG Mean Corpuscular Hemoglobin Concent 34.5 % Red Cell Distribution Width 12.8 % Platelet Count 325 TH/MM3 Mean Platelet Volume 7.0 FL Neutrophils (%) (Auto) 72.6 % Lymphocytes (%) (Auto) 18.9 % Monocytes (%) (Auto) 8.3 % Eosinophils (%) (Auto) 0.1 % Basophils (%) (Auto) 0.1 % Neutrophils # (Auto) 6.5 TH/MM3 Lymphocytes # (Auto) 1.7 TH/MM3 Monocytes # (Auto) 0.7 TH/MM3 Eosinophils # (Auto) 0.0 TH/MM3 Basophils # (Auto) 0.0 TH/MM3 CBC Comment DIFF FINAL Differential Comment Blood Urea Nitrogen 11 MG/DL Creatinine 0.64 MG/DL Random Glucose 93 MG/DL Total Protein 8.2 GM/DL Albumin 4.2 GM/DL Calcium Level 9.5 MG/DL Alkaline Phosphatase 82 U/L Aspartate Amino Transf (AST/SGOT) 20 U/L Alanine Aminotransferase (ALT/SGPT) 23 U/L Total Bilirubin 1.0 MG/DL Sodium Level 136 MEQ/L Potassium Level 3.5 MEQ/L Chloride Level 103 MEQ/L Carbon Dioxide Level 25.3 MEQ/L Anion Gap 8 MEQ/L Estimat Glomerular Filtration Rate 99 ML/MIN Urine Opiates Screen NEG Urine Barbiturates Screen NEG Urine Amphetamines Screen NEG Urine Benzodiazepines Screen NEG Urine Cocaine Screen NEG Urine Cannabinoids Screen NEG Mental Status Examination Speech: Unremarkable, Incoherent Orientation: Person Memory: Impaired (describe) (untestable) Thought Process: Loose Association Thought Content: Bizarre thinking, Paranoid Hallucination Type: Auditory Attention and Concentration: Abnormal Suicidal Ideation: No Previous Suicide Attempts: No Homicidal Ideation: No Previous Homicide Attempts: No Insight: Poor Judgment: Impulsive, Unrealistic Affect: Anxious Mood: Appropriate Motor Activity: Normal gait Assessment & Plan Problem List: (1) Brief psychotic disorder ICD Codes: F23 - Brief psychotic disorder Status: Acute Assessment & Plan Estimated LOS: days 47-year-old female who is grossly psychotic at this point, paranoid, responding to internal stimuli, expressing auditory hallucinations and loose associations. Patient is at high risk for harm to self and others as she behaves impulsively and has grabbed several weapons at home. She is paranoid about her son's welfare and she is obviously unable to distinguish reality from psychosis. For this reason she will be admitted for evaluation and treatment. This physician has ordered a comprehensive metabolic profile and CBC to determine if there is any infectious or metabolic process which are causing her contributing to her psychosis. I had a hospitalist consult is also being obtained as the patient has a history of thyroid disease. In addition we will obtain thyroid stimulating hormone level, vitamin B-12 level and vitamin D levels. Once again, vitamin deficiencies or thyroid disorders may cause or contribute to her psychosis. Furthermore, the patient will have an EKG to determine her cardiac conduction status and her tolerability for antipsychotic medication. This physician has started Abilify 2 mg at bedtime to determine the patient's response and tolerability to this medicine. This physician spoke to the patient's nurse as well as the AR INSULATION CUTTER AND FORMER assigned to her care. This physician spoke with the patient's daughter regarding the bizarre behavior of her mother. Finally, this physician is asking for case management to assist with further information gathering and disposition planning. Junaid Stevenson MD Jul 13, 2017 16:53
[2017-07-13] MEDS ORDERED: OLANZapine 5 MG TAB PO ONE (17:15)
[2017-07-13 18:00] VITALS: BP 177/103; PULSE 124
[2017-07-13 19:40] VITALS: BP 127/84; PULSE 111; RESP 22; O2SAT 99
[2017-07-13] MEDS: ARIPiprazole 5 MG TAB PO SCH (20:23)
[2017-07-13] MEDS: hydrOXYzine HCL 50 MG TAB PO PRN (20:23)
[2017-07-13] MEDS: LORazepam 1 MG TAB PO PRN (22:04)
[2017-07-14] MEDS: ACETAMINOPHEN 325 MG TAB PO PRN ×3 (01:02→21:55)
[2017-07-14] MEDS: hydrOXYzine HCL 50 MG TAB PO PRN (02:32)
[2017-07-14] MEDS: LEVOTHYROXINE SODIUM 88 MCG TAB PO SCH (05:15)
[2017-07-14 06:08] VITALS: BP 126/79; PULSE 86; RESP 17; TEMP 98.7; O2SAT 97
--- NOTE | 2017-07-14 08:13 | PD.PSY.CON ---
Provisional Diagnosis Admission Date Jul 13, 2017 at 14:47 [place] I. 1. Other psychotic disorder Madras II. Deferred History of Present Illness Service Psychiatry Consult Requested By Dr. Stevenson Reason for Consult Second opinion for involuntary psychiatric hospitalization Primary Care Physician Unknown HPI From Dr. Stevenson's H&P: This is a 47-year-old female Steven acted by this physician for psychotic and dangerous behavior. Patient was brought in by her daughter after showing 2 weeks of decompensating behavior. Patient apparently is grabbing for weapons, including using a pipe to attack others. She yells out or screams nonsensically with no prompting. She has difficulty communicating secondary to loose associations and she is a poor historian. She is [place]-speaking only and unable to answer questions, primarily due to her psychosis. This is not her first such episode of psychotic thinking but the patient's daughter indicates she had an episode approximately 17 years ago after the of her son. At this point, the patient's psychotic symptoms are consistent with schizophrenia as the patient does not appear overly depressed. However, she remains paranoid, especially concerning the welfare of her son and she physically tries to prevent him from leaving the home. She bursts out phrases regarding amish, devils, etc. which are nonsensical and the patient's daughter is unable to care for her. The patient was treated at [facility] and only recently given a prescription for low to. Prior to that she was treated with antidepressant and antianxiety medicine. She does not, however, have a history of alcohol or substance abuse. Patient does appear to be responding to internal stimuli during this interview. On my examination today: Patient seen and examined with nurse. Also utilized computer-based Uz[place] english as a second language instructor Sandy, although patient does have some Frisian proficiency. Chart reviewed. I note that I saw the patient during an admission in November of this year. Case discussed with nursing staff. A HaliCAT apparently had to be called yesterday for what was ultimately thought to be a panic attack. At my initial eval, patient presents as fearful and anxious. She is lying in bed, panting, and casting her eyes about the room. She is unable to participate in the interview at this point. I obtained a set of vitals (P93, BP135/94, SpO2 100% on room air). I ordered patient medicated with Ativan 1mg IM once. On re- eval, patient is much calmer and conversant. She is breathing easily. She tells me that she has been dealing with a lot of stress. Patient apparently believes that there were female assassins outside her son's house with knives. She says they were threatening her. She becomes more anxious as she talks about this subject, and clearly it has a high emotional valence. She does not answer directly when asked if she feels safe in the hospital. She says that she has not been sleeping well. Denies SI/HI. She complains of some tightness in her chest when she feels particularly stressed but denies any physical symptoms now. Denies side effects from psychotropics. Interview somewhat limited, I suspect in part because of the language barrier and also because of the patient's current mental state. Review of Systems ROS Limitations: Language Barrier, Poor Historian Except as stated in HPI: all other systems reviewed are Neg Past Family Social History Coded Allergies: No Known Allergies (Unverified , 07/13/17) Past Medical History See EMR Active Scripts Escitalopram (Escitalopram) 10 Mg Tab, 10 MG PO DAILY for Mental Health for 15 Days, TAB 1 Refill Prov:Abdulaziz Brown MD 12/14/16 Reported Medications Benztropine (Benztropine) 0.5 Mg Tab, 1 MG PO DAILY, #60 TAB 0 Refills 06/29/17 Lorazepam (Lorazepam) 1 Mg Tab, 1 MG PO BID Y for ANXIETY, TAB 0 Refills 06/29/17 Levothyroxine (Levothyroxine) 88 Mcg Tab, 88 MCG PO DAILY for Thyroid, #30 TAB 0 Refills 12/07/16 Buspirone (Buspirone) 10 Mg Tab, 10 MG PO BID for Anxiety, TAB 0 Refills 12/07/16 Current Medications Medications (Trade) Dose Ordered Sig/Chyna Route Start Time Stop Time Status Last Admin (Ativan) 1 mg Q6H PRN PO 07/13/17 15:00 07/13/17 22:04 (Ativan Inj) 1 mg Q6H PRN IM 07/13/17 15:00 (Tylenol) 650 mg Q4H PRN PO 07/13/17 15:00 07/14/17 01:02 (Milk Of Magnesia Liq) 30 ml DAILY PRN PO 07/13/17 15:00 (Mag-Al Plus Susp Liq) 30 ml Q6H PRN PO 07/13/17 15:00 (Atarax) 50 mg Q6H PRN PO 07/13/17 15:00 07/14/17 02:32 (Synthroid) 88 mcg DAILY@0600 PO 07/14/17 06:00 07/14/17 05:15 (Abilify) 5 mg HS PO 07/13/17 21:00 07/13/17 20:[address] Stevenson's note Social History See Dr. Stevenson's note Patient's Strengths (min. 2) In a monitored setting. Verbally fluent. Physical Exam Physical exam completed by hospitalist microsoft dynamics consultant. On my re-examination today, the patient appears to be in no acute physical distress. She is breathing easily. She does continue to exhibit some automatisms including lip-smacking and moistening her lips with her tongue. No other motor abnormalities noted. Labs and vitals reviewed: Vital Signs Vital Signs Date Time Temp Pulse Resp B/P (MAP) Pulse Ox O2 Delivery O2 Flow Rate FiO2 07/14/17 06:08 98.7 86 17 126/79 (95) 97 07/13/17 11:24 Room Air Lab Results Item Value Date Time White Blood Count 7.9 TH/MM3 07/14/17 0949 Hemoglobin 15.4 GM/DL H 07/14/17 0949 Platelet Count 336 TH/MM3 07/14/17 0949 Sodium Level 125 MEQ/L L # 07/14/17 0949 Potassium Level 2.9 MEQ/L *L 07/14/17 0949 Chloride Level 92 MEQ/L L # 07/14/17 0949 Carbon Dioxide Level 20.6 MEQ/L L 07/14/17 0949 Blood Urea Nitrogen 10 MG/DL 07/14/17 0949 Creatinine 0.69 MG/DL 07/14/17 0949 Aspartate Amino Transf (AST/SGOT) 27 U/L 07/14/17 0949 Alanine Aminotransferase (ALT/SGPT) 25 U/L 07/14/17 0949 Alkaline Phosphatase 91 U/L 07/14/17 0949 Vitamin B12 Level 564 PG/ML 07/14/17 0949 25-Hydroxy Vitamin D Total 30.2 ng/ML 07/14/17 0949 Thyroid Stimulating Hormone 3rd Gen 7.210 uIU/ML H 07/14/17 0949 Labs reviewed. TSH elevated. New hyponatremia, hypokalemia. TSH elevated. EKG NSR QTc 401ms Mental Status Examination Motor exam as above. Appearance In hospital gown. Well-groomed. Speech: Unremarkable Orientation: Person, Place Memory: Impaired (describe) (confabulates r/t psychosis) Thought Process: Circumstantial Thought Content: Bizarre thinking, Paranoid Language unremarkable Fund of Knowledge Average Hallucination Type: Auditory Attention and Concentration: Abnormal Suicidal Ideation: No Previous Suicide Attempts: No Homicidal Ideation: No Previous Homicide Attempts: No Insight: Poor Judgment: Poor Affect: Other (blunted) Mood: Anxious Assessment & Plan Problem List: (1) Other psychotic disorder not due to a substance or known physiological condition ICD Codes: F28 - Other psychotic disorder not due to a substance or known physiological condition Status: Acute Assessment & Plan 47-year-old female presently admitted to the inpatient psychiatric unit for management of psychosis. Patient has been having episodes of what appear to be panic, and this I suspect is largely related to ongoing paranoid delusions. She has been started on Abilify by Dr. Stevenson. Given her degree of psychiatric decompensation patient requires psychiatric hospitalization for safety, observation and stabilization. Retain inpatient. I concur with Dr. Stevenson that the patient meets criteria for involuntary psychiatric hospitalization under the Steven act. I completed the second opinion paperwork. Appreciate hospitalist input. I will replete K now and recheck a BMP and Mg this evening. I have asked the RN to reach out to the hospitalist to see if patient requires any other measures to manage electrolyte abnormalities at this time. Continue Abilify 5mg as ordered with plans to titrate to effect for psychosis. I will add Klonopin 0.5mg BID for anxiety. Check EEG given automatisms on exam to rule-out seizure as a cause of patient's paroxysmal symptoms. Seizure precautions. Continue to monitor on the inpatient unit. Continue other medications and care as ordered. Discharge Planning Requires ongoing hospitalization due to: High risk for decompensation and less restrictive environment. Med changes. Rule out complicating conditions. Discharge is pending psychiatric stabilization. Abdulaziz Brown MD Jul 14, 2017 08:13
[2017-07-14] MEDS: LORazepam 2 MG/ML VIAL IM PRN (08:30)
[2017-07-14 11:37] LABS: AUTOMATED NEUTROPHIL # 5.1 TH/MM3 (1.8-7.7); BASOPHIL % 0.2 % (0.0-2.0); EOSINOPHIL % 0.1 % (0.0-4.0); HEMATOCRIT 45.4 % (35.0-46.0); HEMO FLAGS DIFF FINAL; LYMPH % 26.1 % (9.0-44.0); LYMPHOCYTE # 2.1 TH/MM3 (1.0-4.8); MEAN CELL VOLUME 88.5 FL (80.0-100.0); MEAN CORPUSCULAR HGB CONC 33.9 % (32.0-36.0); MONO % 9.3 % (0.0-8.0); NEUT % 64.3 % (16.0-70.0); PLATELET COUNT 336 TH/MM3 (150-450); RED BLOOD COUNT 5.13 MIL/MM3 (4.00-5.30); RED CELL DISTRIBUTION WIDTH 12.7 % (11.6-17.2); WHITE BLOOD COUNT 7.9 TH/MM3 (4.0-11.0)
[2017-07-14 12:15] LABS: BLOOD UREA NITROGEN 10 MG/DL (7-18)
[2017-07-14 12:16] LABS: ALKALINE PHOSPHATASE 91 U/L (45-117); ALT (GPT) 25 U/L (10-53); ANION GAP 12 MEQ/L (5-15); AST (GOT) 27 U/L (15-37); BICARBONATE 20.6 MEQ/L (21.0-32.0); CHLORIDE 92 MEQ/L (98-107); GLOMERULAR FILTRATION RATE 91 ML/MIN (>89); HDL CHOLESTEROL 101.1 MG/DL (40.0-60.0); LDL CHOLESTEROL 109 MG/DL (0-99); SODIUM (NA) 125 MEQ/L (136-145); TOTAL BILIRUBIN ADULT 2.2 MG/DL (0.2-1.0)
[2017-07-14 12:20] LABS: POTASSIUM 2.9 MEQ/L (3.5-5.1)
[2017-07-14] MEDS ORDERED: POTASSIUM CHLORIDE 10 MEQ CONTROLLED RELEASE TAB PO ONE ×2 (12:30)
--- NOTE | 2017-07-14 12:41 | EKG ---
Date Performed: 07/14/2017 Time Performed: 10:01:40 PTAGE: 47 years EKG: Sinus rhythm NORMAL ECG NO PREVIOUS TRACING DOCTOR: Jaya Smalls Interpretating Date/Time 07/14/2017 12:40:07
[2017-07-14] MEDS ORDERED: POTASSIUM CHLORIDE 20 MEQ CONTROLLED RELEASE TAB PO ONE ×2 (12:45→16:00)
[2017-07-14 15:43] LABS: HEMOGLOBIN A1a 1.3 %; HEMOGLOBIN A1b 0.9 %; HEMOGLOBIN Ao 85.9 %; HEMOGLOBIN LA1C 1.9 %; HEMOGLOBIN P3 3.3 %
[2017-07-14 18:34] VITALS: BP 158/85; PULSE 94; RESP 17; TEMP 97.2; O2SAT 97
[2017-07-14 21:48] LABS: BICARBONATE 21.3 MEQ/L (21.0-32.0)
[2017-07-14] MEDS: clonazePAM 0.5 MG TAB PO SCH (21:55)
[2017-07-14] MEDS: ARIPiprazole 5 MG TAB PO SCH (21:55)
[2017-07-15] MEDS: hydrOXYzine HCL 50 MG TAB PO PRN (02:16)
[2017-07-15 05:44] VITALS: BP 142/84; PULSE 84; RESP 17; TEMP 98.7; O2SAT 97
[2017-07-15] MEDS: LEVOTHYROXINE SODIUM 88 MCG TAB PO SCH (06:22)
[2017-07-15] MEDS: ACETAMINOPHEN 325 MG TAB PO PRN ×2 (06:27→20:46)
[2017-07-15] MEDS: LORazepam 1 MG TAB PO PRN (06:28)
[2017-07-15] MEDS: clonazePAM 0.5 MG TAB PO SCH ×2 (10:11→20:44)
--- NOTE | 2017-07-15 10:28 | HHI.PYPN ---
Subjective Remarks Patient seen and examined with occupational therapist. Chart reviewed. Case discussed with nursing staff who reports that patient articulated a belief that she was this morning. Patient declines use of interpretation services , preferring to conduct the interview in Chinese. Patient does not verbalize this on my exam today. She continues to feel "stressed and nervous." No AVH. No assassins. Denies side effects from medications. No physical complaints. Review of Systems ROS Limitations: Poor Historian Except as stated in HPI: all other systems reviewed are Neg Objective Alert: Yes [place]: Person, Place Mood: Anxious Affect: Blunted Memory Intact: Comment (Not formally assessed) Hallucinations: Other (No AVH but remains internally preoccupied) Delusions: No Delusion Type: Other (No delusions elicited today) Suicidal: Ideation (No SI) Homicidal: Ideation (No HI) Insight/Judgment Poor Remarks No abnormal motor movements noted. Labs Test 07/14/17 21:09 Blood Urea Nitrogen 14 MG/DL Creatinine 0.77 MG/DL Random Glucose 99 MG/DL Calcium Level 9.7 MG/DL Magnesium Level 2.0 MG/DL Sodium Level 130 MEQ/L Potassium Level 5.0 MEQ/L Chloride Level 100 MEQ/L Carbon Dioxide Level 21.3 MEQ/L Anion Gap 9 MEQ/L Estimat Glomerular Filtration Rate 80 ML/MIN Labs reviewed. Hypokalemia and hyponatremia improved. Vitals/IOs Vital Signs Date Time Temp Pulse Resp B/P (MAP) Pulse Ox O2 Delivery O2 Flow Rate FiO2 07/15/17 09:00 14 07/15/17 05:44 98.7 84 142/84 (103) 97 07/13/17 11:24 Room Air Assessment & Plan Problem List: (1) Other psychotic disorder not due to a substance or known physiological condition ICD Codes: F28 - Other psychotic disorder not due to a substance or known physiological condition Status: Acute Assessment & Plan Check stat bHCG, although I have a lower suspicion for in this patient. Titrate Abilify to 7.5mg daily as I suspect ongoing psychotic symptoms in this patient. Follow up BMP ordered this morning. Case d/w Dr. Thayer from hospitalist service. Continue to monitor on inpatient unit. Continue other medications and care as ordered. Justification for Cont. Inpt. Medication changes. Risk for decompensation and less restrictive environment Discharge Planning Pending psychiatric stabilization. Possible discharge beginning of next week. Abdulaziz Brown MD Jul 15, 2017 10:28
--- NOTE | 2017-07-15 10:31 | HHI.PR ---
Subjective Remarks This is a pleasant 47 y/o Female with Schizophrenia/Schizoaffective Disorder, after Episode of Psychosis, apparent started after an episode of depression, presents to the emergency department brought in by her family for increasing aggressive behavior, paranoid behavior, grabbing weapons in the house, and a preoccupation with her son's safety. The daughter apparently brought her in previously week or so ago with similar symptoms. Seen in Psychiatric unit in the presence at all times of Nurse Mr. Yusuf, patient stable answered my questions without difficulty 1. Schizophrenia and Psychosis, continue Psychiatry specialist management 2. Hypothyroidism uncontrolled TSH increased Levothyroxine to 100 mcg daily. 3. Hypertension I will not pursue management at this time will continue present care and will need to follow as outpatient. 4. Hypokalemia replaced by Doctor Stephanie. no need for DVT prophylaxis giving recommendations based on laboratory and hospital Course. Code Status Full code. Discussed Condition With at this time discussed with Doctor Abdulaziz Brown, no further recommendations signing OFF the case call as needed Objective Vital Signs Date Time Temp Pulse Resp B/P (MAP) Pulse Ox O2 Delivery O2 Flow Rate FiO2 07/15/17 09:00 14 07/15/17 05:44 98.7 84 17 142/84 (103) 97 07/14/17 18:34 97.2 94 17 158/85 (109) 97 Result Diagram: 07/14/17 0949 07/14/172108 Other Results Laboratory Tests Test 07/13/17 10:05 07/14/17 09:49 07/14/17 21:09 Urine Opiates Screen NEG Urine Barbiturates Screen NEG Urine Amphetamines Screen NEG Urine Benzodiazepines Screen NEG Urine Cocaine Screen NEG Urine Cannabinoids Screen NEG White Blood Count 7.9 TH/MM3 Red Blood Count 5.13 MIL/MM3 Hemoglobin 15.4 GM/DL Hematocrit 45.4 % Mean Corpuscular Volume 88.5 FL Mean Corpuscular Hemoglobin 30.0 PG Mean Corpuscular Hemoglobin Concent 33.9 % Red Cell Distribution Width 12.7 % Platelet Count 336 TH/MM3 Mean Platelet Volume 7.3 FL Neutrophils (%) (Auto) 64.3 % Lymphocytes (%) (Auto) 26.1 % Monocytes (%) (Auto) 9.3 % Eosinophils (%) (Auto) 0.1 % Basophils (%) (Auto) 0.2 % Neutrophils # (Auto) 5.1 TH/MM3 Lymphocytes # (Auto) 2.1 TH/MM3 Monocytes # (Auto) 0.7 TH/MM3 Eosinophils # (Auto) 0.0 TH/MM3 Basophils # (Auto) 0.0 TH/MM3 CBC Comment DIFF FINAL Differential Comment Hemoglobin A1c 5.5 % Blood Urea Nitrogen 10 MG/DL 14 MG/DL Creatinine 0.69 MG/DL 0.77 MG/DL Random Glucose 82 MG/DL 99 MG/DL Total Protein 8.8 GM/DL Albumin 4.4 GM/DL Calcium Level 10.0 MG/DL 9.7 MG/DL Alkaline Phosphatase 91 U/L Aspartate Amino Transf (AST/SGOT) 27 U/L Alanine Aminotransferase (ALT/SGPT) 25 U/L Total Bilirubin 2.2 MG/DL Sodium Level 125 MEQ/L 130 MEQ/L Potassium Level 2.9 MEQ/L 5.0 MEQ/L Chloride Level 92 MEQ/L 100 MEQ/L Carbon Dioxide Level 20.6 MEQ/L 21.3 MEQ/L Triglycerides Level 80 MG/DL Cholesterol Level 226 MG/DL LDL Cholesterol 109 MG/DL HDL Cholesterol 101.1 MG/DL Cholesterol/HDL Ratio 2.23 RATIO Vitamin B12 Level 564 PG/ML 25-Hydroxy Vitamin D Total 30.2 ng/ML Thyroid Stimulating Hormone 3rd Gen 7.210 uIU/ML Magnesium Level 2.0 MG/DL Anion Gap 9 MEQ/L Estimat Glomerular Filtration Rate 80 ML/MIN Manuel Maria MD Jul 15, 2017 10:31
[2017-07-15 13:47] LABS: BICARBONATE 26.2 MEQ/L (21.0-32.0); POTASSIUM 3.6 MEQ/L (3.5-5.1)
[2017-07-15] MEDS: ARIPiprazole 5 MG TAB PO SCH (20:44)
[2017-07-16] MEDS: LEVOTHYROXINE SODIUM 100 MCG TAB PO SCH (06:00)
[2017-07-16 06:40] VITALS: BP 125/90; PULSE 93; RESP 16; TEMP 98.1; O2SAT 95
[2017-07-16] MEDS: clonazePAM 0.5 MG TAB PO SCH ×2 (09:44→22:59)
--- NOTE | 2017-07-16 13:03 | HHI.PYPN ---
Subjective Remarks Patient seen and case discussed with nurse. Labs reviewed. Patient remains psychotic and easily confused. Review of Systems Except as stated in HPI: all other systems reviewed are Neg Objective Alert: Yes [place]: Person, Place Mood: Anxious Affect: Blunted Memory Intact: Comment (Not formally assessed) Hallucinations: Other (No AVH but remains internally preoccupied) Delusions: No Delusion Type: Other (No delusions elicited today) Suicidal: Ideation (No SI) Homicidal: Ideation (No HI) Insight/Judgment Impaired Vitals/IOs Vital Signs Date Time Temp Pulse Resp B/P (MAP) Pulse Ox O2 Delivery O2 Flow Rate FiO2 07/16/17 06:40 98.1 93 16 125/90 (102) 95 07/13/17 11:24 Room Air Assessment & Plan Problem List: (1) Other psychotic disorder not due to a substance or known physiological condition ICD Codes: F28 - Other psychotic disorder not due to a substance or known physiological condition Status: Acute Assessment & Plan Estimated LOS: days continue antipsychotic regimen and evaluate for efficacy versus tolerability. Justification for Cont. Inpt. Unable to care for self. Junaid Stevenson MD Jul 16, 2017 13:03
[2017-07-16] MEDS: LORazepam 1 MG TAB PO PRN (14:11)
[2017-07-16 18:04] VITALS: BP 148/79; PULSE 91; RESP 18; TEMP 98.8; O2SAT 97
[2017-07-16] MEDS: ACETAMINOPHEN 325 MG TAB PO PRN (18:51)
[2017-07-16] MEDS: ARIPiprazole 5 MG TAB PO SCH (23:00)
[2017-07-17] MEDS: LEVOTHYROXINE SODIUM 100 MCG TAB PO SCH (06:41)
[2017-07-17 07:12] VITALS: BP 133/82; PULSE 117; RESP 17; TEMP 98.2; O2SAT 99
[2017-07-17] MEDS: clonazePAM 0.5 MG TAB PO SCH (09:00)
--- NOTE | 2017-07-17 11:55 | HHI.PYPN ---
Subjective Remarks Patient seen and examined with nurse. Chart reviewed. Case discussed with nursing staff. No behavioral issues noted. Patient declines computer-based [place] american sign language interpreter. On my examination today, the patient complains of poor sleep. She does not describe any psychotic material but remains fairly anxious. No concerns about assassins. Denies any SI or HI. Denies any AVH. I do note her pulse rate has been elevated. Denies side effects from medications. No physical complaints. Review of Systems Except as stated in HPI: all other systems reviewed are Neg Objective Alert: Yes [place]: Person, Place Mood: Anxious (remains fairly anxious) Affect: Blunted Memory Intact: Comment (Not formally assessed) Hallucinations: Other (denies AVH) Delusions: No Delusion Type: Other (no delusions) Suicidal: Ideation (denies suicidal ideation) Homicidal: Ideation (denies homicidal ideation) Insight/Judgment Poor Remarks No motor abnormalities noted. Grooming and hygiene good. Thought process linear. Labs Labs reviewed Vitals/IOs Vital Signs Date Time Temp Pulse Resp B/P (MAP) Pulse Ox O2 Delivery O2 Flow Rate FiO2 07/17/17 07:12 98.2 117 17 133/82 (99) 99 07/13/17 11:24 Room Air Intake and Output 07/17/17 07/17/17 07/17/17 07:59 15:59 23:59 Intake Total 480 ml Balance 480 ml Assessment & Plan Problem List: (1) Other psychotic disorder not due to a substance or known physiological condition ICD Codes: F28 - Other psychotic disorder not due to a substance or known physiological condition Status: Acute Assessment & Plan Titrate Klonopin to 1 mg twice daily to help manage anxiety. To consider further titration of Abilify. Check updated EKG given intermittent tachycardia. Check BMP to follow-up on hyponatremia and to ensure the patient is not experiencing electrolyte abnormalities otherwise. Continue to monitor on the inpatient unit. Continue other medications and care as ordered. Justification for Cont. Inpt. Medication changes. Risk for decompensation in less restrictive environment. Discharge Planning Pending psychiatric stabilization. Abdulaziz Brown MD Jul 17, 2017 11:55
[2017-07-17 14:38] LABS: BICARBONATE 27.8 MEQ/L (21.0-32.0); POTASSIUM 4.6 MEQ/L (3.5-5.1)
--- NOTE | 2017-07-17 15:40 | MG ---
cc: OWEN DAY MD Lab No: [id number] Date: 07/16/2017 Age: 47 Sex: F Race: DATE OF 1970 DESCRIPTION Posterior rhythm demonstrating 6-8 Hz background activity, 20-50 microvolts. Good anterior-posterior gradient. Good EEG variability reactivity. Attenuation slowing background transition into drowsy state. Posterior occipital sharp transients noted, EPOCH 65. Some spindle activity noted as well suggestive of stage II sleep. Single-lead EKG showing sinus rhythm. Mixed poly frequencies occurring at times off and on. Single-lead EKG showing sinus rhythm. INTERPRETATION Normal awake sleep EEG. Clinical correlation. Owen Day MD MG/DT /2:19 PM /3:21 PM MTDD
[2017-07-17 18:19] VITALS: BP 138/80; PULSE 91; RESP 16; TEMP 99; O2SAT 100
[2017-07-17] MEDS: clonazePAM 1 MG TAB PO SCH (22:21)
[2017-07-17] MEDS: ARIPiprazole 5 MG TAB PO SCH (22:21)
[2017-07-18] MEDS: LORazepam 1 MG TAB PO PRN (02:39)
[2017-07-18] MEDS: hydrOXYzine HCL 50 MG TAB PO PRN ×2 (03:30→21:55)
[2017-07-18] MEDS: LEVOTHYROXINE SODIUM 100 MCG TAB PO SCH (05:49)
[2017-07-18 06:16] VITALS: BP 128/71; PULSE 83; RESP 18; TEMP 98.2; O2SAT 97
[2017-07-18] MEDS: clonazePAM 1 MG TAB PO SCH ×2 (08:34→21:55)
--- NOTE | 2017-07-18 11:24 | EKG ---
Date Performed: 07/17/2017 Time Performed: 16:23:33 PTAGE: 47 years EKG: Sinus rhythm NORMAL ECG Compared to prior tracing no significant change PREVIOUS TRACING : 07/14/2017 10.01 DOCTOR: Malena Christopher Interpretating Date/Time 07/18/2017 11:21:19
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
[2017-07-18 18:24] VITALS: BP 148/91; PULSE 86; RESP 18; TEMP 97.9; O2SAT 98
[2017-07-18] MEDS ORDERED: ARIPiprazole 10 MG TAB PO SCH (21:00)
[2017-07-19] MEDS: LEVOTHYROXINE SODIUM 100 MCG TAB PO SCH (05:21)
[2017-07-19 06:06] VITALS: BP 117/75; PULSE 84; RESP 17; TEMP 97.9; O2SAT 99
[2017-07-19] MEDS: clonazePAM 1 MG TAB PO SCH ×2 (08:42→21:14)
--- NOTE | 2017-07-19 08:53 | HHI.PYPN ---
Subjective Remarks Patient seen and examined with nurse. Chart reviewed. Case discussed in treatment team. On my exam, patient seems calmer and in better spirits. Denies any AVH. No reports of people at her window last night. Seems less anxious. No SI or HI. Denies side effects from medications. No physical complaints. Review of Systems ROS Limitations: Poor Historian Except as stated in HPI: all other systems reviewed are Neg Objective Alert: Yes [place]: Person, Place Mood: Calm Affect: Appropriate Memory Intact: Comment (Not formally assessed) Hallucinations: Other (denies AVH) Delusions: No Delusion Type: Other (no delusions) Suicidal: Ideation (no SI) Homicidal: Ideation (no HI) Insight/Judgment Perhaps improving somewhat Remarks No motor abnormalities noted. Thought process linear. Labs Labs reviewed. Vitals/IOs Vital Signs Date Time Temp Pulse Resp B/P (MAP) Pulse Ox O2 Delivery O2 Flow Rate FiO2 07/19/17 06:06 97.9 84 17 117/75 (89) 99 Assessment & Plan Problem List: (1) Other psychotic disorder not due to a substance or known physiological condition ICD Codes: F28 - Other psychotic disorder not due to a substance or known physiological condition Status: Acute Assessment & Plan Continue Abilify and Klonopin as ordered. Continue to monitor on the inpatient unit. Continue other medications and care as ordered. Patient may sign voluntary. Justification for Cont. Inpt. Discharge planning Discharge Planning Counselor to reach out the patient's family with patient's permission to discuss home-going plan. Possible discharge tomorrow, Tuesday. Request HC Surrog/Guard Advoc?: No Abdulaziz Brown MD Jul 19, 2017 08:53
[2017-07-19] MEDS: LORazepam 1 MG TAB PO PRN (13:12)
[2017-07-19] MEDS ORDERED: PILL SPLITTER OTHER PRN (16:00)
[2017-07-19] MEDS: ACETAMINOPHEN 325 MG TAB PO PRN (16:02)
[2017-07-19 18:00] VITALS: BP 122/83; PULSE 93; RESP 18; TEMP 97.7; O2SAT 100
[2017-07-19] MEDS ORDERED: ARIPiprazole 10 MG TAB PO SCH (21:00)
[2017-07-20] MEDS: LEVOTHYROXINE SODIUM 100 MCG TAB PO SCH (05:48)
[2017-07-20 06:05] VITALS: BP 131/72; PULSE 70; RESP 18; TEMP 97; O2SAT 100
[2017-07-20] MEDS: clonazePAM 1 MG TAB PO SCH ×2 (09:02→21:01)
[2017-07-20] MEDS: ACETAMINOPHEN 325 MG TAB PO PRN (09:02)
--- NOTE | 2017-07-20 10:12 | HHI.PYPN ---
Subjective Remarks Patient seen and examined with nurse. Chart reviewed. Case discussed with nursing staff. On my examination today, some ongoing paranoia. Says that she believes her language is bothering other people, although there is no evidence that this is the case. Possibly some internal stimulation, casting her eyes about her room as if seeing or hearing something that is not there. Remains a little anxious. No SI/HI. No side effects from medications. No physical complaints. Review of Systems ROS Limitations: Psychotic, Poor Historian Except as stated in HPI: all other systems reviewed are Neg Objective Alert: Yes [place]: Person, Place Mood: Calm Affect: Blunted Memory Intact: Comment (Not formally assessed) Hallucinations: Other (denies AVH but does appear a little int stim) Delusions: Yes Delusion Type: Paranoid (mild) Suicidal: Ideation (no SI) Homicidal: Ideation (no HI) Insight/Judgment Poor Remarks No motor abnormalities noted. Labs Labs reviewed Vitals/IOs Vital Signs Date Time Temp Pulse Resp B/P (MAP) Pulse Ox O2 Delivery O2 Flow Rate FiO2 07/20/17 06:05 97.0 70 18 131/72 (91) 100 Assessment & Plan Problem List: (1) Other psychotic disorder not due to a substance or known physiological condition ICD Codes: F28 - Other psychotic disorder not due to a substance or known physiological condition Status: Acute Assessment & Plan Titrate Abilify to 20 mg per day to target residual psychosis. Continue to monitor on the inpatient unit. Continue other medications and care as ordered. Justification for Cont. Inpt. Med changes. Risk for decompensation. Discharge Planning Pending psychiatric stabilization. Possible discharge by the end of the week. Request HC Surrog/Guard Advoc?: No Abdulaziz Brown MD Jul 20, 2017 10:12
[2017-07-20 18:00] VITALS: BP 155/87; PULSE 103; RESP 18; TEMP 98; O2SAT 98
[2017-07-20] MEDS ORDERED: ARIPiprazole 10 MG TAB PO SCH (21:00)
[2017-07-20] MEDS: LORazepam 1 MG TAB PO PRN (22:25)
[2017-07-21 05:40] VITALS: BP 120/92; PULSE 94; RESP 17; TEMP 97.9
[2017-07-21] MEDS: LEVOTHYROXINE SODIUM 100 MCG TAB PO SCH (05:44)
[2017-07-21] MEDS: clonazePAM 1 MG TAB PO SCH ×2 (08:46→20:50)
--- NOTE | 2017-07-21 11:25 | HHI.PYPN ---
Subjective Remarks Patient seen and examined with nurse. Chart reviewed. Case discussed with nursing staff. Ongoing psychotic symptoms per nursing notes, and patient's nursethe patient continues to respond to internal stimuli. On my examination today, the patient presents as delayed, possibly with some thought blocking. She says that she is "very frightened" but struggles to say of what. She rambles about a "button" in the shower area that she imbues with some sort of malign significance. Continues to appear internally preoccupied. No reported side effects from medications. No physical complaints. Review of Systems ROS Limitations: Psychotic, Poor Historian Except as stated in HPI: all other systems reviewed are Neg Objective Alert: Yes [place]: Person, Place Mood: Anxious Affect: Blunted Memory Intact: Comment (Not formally assessed) Hallucinations: Other (Appears int stim) Delusions: Yes Delusion Type: Paranoid Suicidal: Ideation (no SI) Homicidal: Ideation (no HI) Insight/Judgment Poor Remarks No motor abnormalities noted. TP somewhat perseverative on paranoid themes, and there is some delay/thought blocking noted. Grooming and hygiene remain good. Labs Labs reviewed. Vitals/IOs Vital Signs Date Time Temp Pulse Resp B/P (MAP) Pulse Ox O2 Delivery O2 Flow Rate FiO2 07/21/17 05:40 97.9 94 17 120/92 (101) 07/20/17 18:00 98 Intake and Output 07/21/17 07/21/17 07/22/17 08:00 16:00 00:00 Intake Total 360 ml Balance 360 ml Assessment & Plan Problem List: (1) Other psychotic disorder not due to a substance or known physiological condition ICD Codes: F28 - Other psychotic disorder not due to a substance or known physiological condition Status: Acute Assessment & Plan Titration of Abilify does not seem to be resulting in better control of psychotic symptoms, and if anything, patient seems a little worse as we are getting to higher doses of Abilify. Covert med non-adherence is not suspected by nursing staff. I will discontinue Abilify and replace with Zyprexa Zydis 5mg qHS with plans to titrate to effect. Check a BMP in the morning to follow- up hyponatremia. Continue to monitor on the inpatient unit. Continue other medications and care as ordered. Justification for Cont. Inpt. Med changes. Impairment in reality construction. Risk for decompensation in less restrictive environment. Discharge Planning Pending psychiatric stabilization. Request HC Surrog/Guard Advoc?: No Abdulaziz Brown MD Jul 21, 2017 11:25
[2017-07-21 17:03] VITALS: BP 138/85; PULSE 90; RESP 18; TEMP 98.1; O2SAT 100
[2017-07-21] MEDS: LORazepam 1 MG TAB PO PRN (20:51)
[2017-07-21] MEDS ORDERED: OLANZapine ODT 5 MG TAB PO SCH (21:00)
[2017-07-22 06:08] VITALS: BP 119/83; PULSE 72; RESP 18; TEMP 97.2; O2SAT 100
[2017-07-22] MEDS: LEVOTHYROXINE SODIUM 100 MCG TAB PO SCH (06:36)
[2017-07-22] MEDS: clonazePAM 1 MG TAB PO SCH ×2 (08:17→20:12)
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
[2017-07-22 13:15] LABS: BICARBONATE 27.8 MEQ/L (21.0-32.0); POTASSIUM 3.6 MEQ/L (3.5-5.1)
[2017-07-22 18:26] VITALS: BP 132/83; PULSE 98; RESP 18; TEMP 99.3; O2SAT 100
[2017-07-22] MEDS: LORazepam 1 MG TAB PO PRN ×2 (19:57→20:12)
[2017-07-22] MEDS ORDERED: OLANZapine ODT 10 MG TAB PO SCH (21:00)
[2017-07-23] MEDS: LEVOTHYROXINE SODIUM 100 MCG TAB PO SCH (06:07)
[2017-07-23 06:26] VITALS: BP 114/66; PULSE 72; RESP 18; TEMP 97.4; O2SAT 100
[2017-07-23] MEDS: clonazePAM 1 MG TAB PO SCH ×2 (09:51→21:26)
[2017-07-23] MEDS: LORazepam 1 MG TAB PO PRN (14:26)
--- NOTE | 2017-07-23 16:35 | HHI.PYPN ---
Subjective Remarks Patient was seen and case discussed with nursing. Patient is pleasant and cooperative with exam. Affect is anxious and suspicious. She has auditory hallucinations calling her bitch. Continues to think that there is a woman outside the window at night and wants to hurt her. Tolerating medications well with no side effects. Denies suicidal or homicidal ideation intent or plan Objective Alert: Yes [place]: Person, Place Mood: Anxious Affect: Restricted Memory Intact: Comment (Not formally assessed) Hallucinations: Auditory (calling her bitch) Delusions: Yes Delusion Type: Paranoid (as noted above, ongoing) Suicidal: Ideation (no SI) Homicidal: Ideation (no HI) Insight/Judgment Poor Vitals/IOs Vital Signs Date Time Temp Pulse Resp B/P (MAP) Pulse Ox O2 Delivery O2 Flow Rate FiO2 07/23/17 06:26 97.4 72 18 114/66 (82) 100 Assessment & Plan Problem List: (1) Other psychotic disorder not due to a substance or known physiological condition ICD Codes: F28 - Other psychotic disorder not due to a substance or known physiological condition Status: Acute Assessment & Plan Continue current treatment plan Justification for Cont. Inpt. Patient would decompensate in a less restrictive setting Request HC Surrog/Guard Advoc?: No Reyes Hopson DO Jul 23, 2017 16:35
[2017-07-23] MEDS: ACETAMINOPHEN 325 MG TAB PO PRN (17:10)
[2017-07-23] MEDS: hydrOXYzine HCL 50 MG TAB PO PRN ×2 (17:10→21:26)
[2017-07-23 18:00] VITALS: BP 139/88; PULSE 100; RESP 18; TEMP 98.6; O2SAT 100
[2017-07-23] MEDS ORDERED: OLANZapine ODT 10 MG TAB PO SCH (21:00)
[2017-07-24] MEDS: LEVOTHYROXINE SODIUM 100 MCG TAB PO SCH (05:32)
[2017-07-24 05:37] VITALS: BP 130/81; PULSE 77; RESP 17; TEMP 98.1; O2SAT 100
[2017-07-24] MEDS: clonazePAM 1 MG TAB PO SCH ×2 (09:27→20:30)
[2017-07-24] MEDS: LORazepam 1 MG TAB PO PRN (10:59)
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
[2017-07-24] MEDS: OLANZapine ODT 10 MG TAB PO SCH (17:35)
[2017-07-24] MEDS: hydrOXYzine HCL 50 MG TAB PO PRN (20:30)
[2017-07-24] MEDS ORDERED: OLANZapine ODT 10 MG TAB PO SCH (21:00)
[2017-07-25 05:31] VITALS: BP 114/70; PULSE 93; RESP 18; TEMP 98.2; O2SAT 98
[2017-07-25] MEDS: LEVOTHYROXINE SODIUM 100 MCG TAB PO SCH (06:06)
[2017-07-25] MEDS: clonazePAM 1 MG TAB PO SCH ×2 (08:30→21:21)
[2017-07-25] MEDS: OLANZapine ODT 10 MG TAB PO SCH (08:31)
--- NOTE | 2017-07-25 12:11 | HHI.PYPN ---
Subjective Remarks Patient seen and examined with counselor and nurse. Chart reviewed. Case discussed with nursing staff. On my examination today, the patient remains quite paranoid and delusional. She insists that there is someone in the closet and makes the nurse checked the closet. She says that there were 2 boys screaming outside of her window. She says that these males "are criminals" and that when anyone else goes to look, "they go, they drive away. They know where I live." Patient remains quite anxious and distressed because of this belief. Denies side effects from medications besides mild sleepiness. No physical complaints. Review of Systems ROS Limitations: Psychotic Except as stated in HPI: all other systems reviewed are Neg Objective Alert: Yes [place]: Person, Place Mood: Anxious Affect: Blunted Memory Intact: Comment (Not formally assessed) Hallucinations: Auditory (hears voices outside her window) Delusions: Yes Delusion Type: Paranoid (ongoing) Suicidal: Ideation (no SI) Homicidal: Ideation (no HI) Insight/Judgment Poor Remarks no motoric abnormalities noted. Thought process perseverative on delusional material. Grooming and hygiene fair. Labs Labs reviewed. No new labs. Vitals/IOs Vital Signs Date Time Temp Pulse Resp B/P (MAP) Pulse Ox O2 Delivery O2 Flow Rate FiO2 07/25/17 05:31 98.2 93 18 114/70 (85) 98 Assessment & Plan Problem List: (1) Other psychotic disorder not due to a substance or known physiological condition ICD Codes: F28 - Other psychotic disorder not due to a substance or known physiological condition Status: Acute Assessment & Plan Zyprexa was titrated over the weekend to 10 mg twice daily. Inadequate response to antipsychotic medication so far. I will titrate patient's HS dose of Zyprexa to 15mg to try to bring psychotic symptoms under better control, although I fear sedation may limit further titration of this agent. Continue Klonopin as ordered for associated anxiety. Continue to monitor on the inpatient psychiatric unit. Continue other medications and care as ordered. Justification for Cont. Inpt. Impairment in reality construction. Medication changes in process. High risk for decompensation in less restrictive environment. Discharge Planning Pending psychiatric stabilization. Request HC Surrog/Guard Advoc?: No Abdulaziz Brown MD Jul 25, 2017 11:44
[2017-07-25 17:56] VITALS: BP 124/68; PULSE 90; RESP 18; TEMP 97.8; O2SAT 99
[2017-07-25] MEDS: OLANZapine ODT 15 MG TAB PO SCH (21:21)
[2017-07-26] MEDS: LORazepam 2 MG/ML VIAL IM PRN (01:30)
[2017-07-26] MEDS: LEVOTHYROXINE SODIUM 100 MCG TAB PO SCH (06:06)
[2017-07-26 06:31] VITALS: BP 107/60; PULSE 75; RESP 16; TEMP 98.1; O2SAT 100
[2017-07-26] MEDS: clonazePAM 1 MG TAB PO SCH ×2 (09:37→21:51)
[2017-07-26] MEDS: OLANZapine ODT 10 MG TAB PO SCH (09:37)
--- NOTE | 2017-07-26 10:50 | PD.TTN ---
Patient Problems 1. Discharge planning 2. Medication compliance 3. Knowledge deficit 4. Lack of coping skills Progress Toward Goals Provider Present: Dr. Hudson Brown Provider Input: Dr. Brown reported the patient remains paranoid and requested counselor contact patient's family to discuss patient's baseline and treatment plan. Nurse(s) Present: Bette Nurse(s) Input: Nurse Bette reported the patient remains paranoid and followed the houskeeper into the shower room. Bette reported the patient thinks the glove turner is spraying cleaning products to annoy the patient. Psychiatric Counselors Present: BIANCA Arrieta Psych Therapist Input: Counselor reported the patient remains confused, extremely paranoid, and delusional. Counselor will contact patient's daughter to discuss patient baseline, treatment plan, and plan for discharge. Group Spec/RT/OT/KRAMER Present: WILLIAMS Lopes Group Spec/RT/OT/KRAMER Input: Emeterio reported the patient occasionally attends groups, however, when she does attend patient displays paranoid and confused behaviors. Documentation Scribe: BIANCA Arrieta Date Resolved: Jul 26, 2017 Marli Zamorano Jul 26, 2017 10:50
--- NOTE | 2017-07-26 12:27 | HHI.PYPN ---
Subjective Remarks Patient seen and examined with nurse. Chart reviewed. Case discussed in treatment team. On my exam, patient remains quite paranoid and anxious. She exhibits poor eye contact. She believes that the director of player personnel is using cleaning chemicals in the bathroom to mess with her. She continues to feel like there are people, "criminals" or "assassins" as she calls them, outside her window, and this is causing her a great deal of distress. She demonstrates how she has to turn on the lights to her room slowly to scare away the criminals. No SI/ HI. No side effects from medications. No physical complaints. Review of Systems ROS Limitations: Poor Historian Except as stated in HPI: all other systems reviewed are Neg Objective Alert: Yes [place]: Person, Place Mood: Anxious (remains quite anxious) Affect: Blunted Memory Intact: Comment (Not formally assessed) Hallucinations: Auditory (ongoing) Delusions: Yes Delusion Type: Paranoid Suicidal: Ideation (No SI voiced) Homicidal: Ideation (No HI voiced) Insight/Judgment Poor Remarks No motor abnormalities noted. Thought process perseverative on delusional themes. Grooming and hygiene fair. Labs Labs reviewed. Vitals/IOs Vital Signs Date Time Temp Pulse Resp B/P (MAP) Pulse Ox O2 Delivery O2 Flow Rate FiO2 07/26/17 06:31 98.1 75 16 107/60 (76) 100 Assessment & Plan Problem List: (1) Other psychotic disorder not due to a substance or known physiological condition ICD Codes: F28 - Other psychotic disorder not due to a substance or known physiological condition Status: Acute Assessment & Plan Psychotic symptoms persist despite titration to 25mg/day Zyprexa. We have previously tried Abilify titration this admission. Rather than further titrating Zyprexa, I think it makes sense at this juncture to add a typical. We can then cross-taper if this new agent seems more efficacious. Add Haldol 2mg BID to existing Zyprexa regimen with plans to titrate to effect. QTc wnl when last checked this admission. Continue to monitor on the inpatient unit. Continue other medications and care as ordered. Justification for Cont. Inpt. Impairment in reality construction. Medication changes. High risk for decompensation in less restrictive environment. Discharge Planning Pending psychiatric stabilization. Request HC Surrog/Guard Advoc?: No Abdulaziz Brown MD Jul 26, 2017 12:27
[2017-07-26] MEDS: LORazepam 1 MG TAB PO PRN (14:44)
[2017-07-26] MEDS: ACETAMINOPHEN 325 MG TAB PO PRN (17:39)
[2017-07-26 17:41] VITALS: BP 118/83; PULSE 95; RESP 18; TEMP 97.9; O2SAT 96
[2017-07-26] MEDS: HALOPERIDOL 2 MG TAB PO SCH (21:52)
[2017-07-26] MEDS: OLANZapine ODT 15 MG TAB PO SCH (21:52)
[2017-07-27] MEDS: hydrOXYzine HCL 50 MG TAB PO PRN (00:02)
[2017-07-27 06:23] VITALS: BP 116/78; PULSE 82; RESP 18; TEMP 98.4; O2SAT 98
[2017-07-27] MEDS: LEVOTHYROXINE SODIUM 100 MCG TAB PO SCH (06:24)
[2017-07-27] MEDS: clonazePAM 1 MG TAB PO SCH ×2 (09:05→20:41)
[2017-07-27] MEDS: OLANZapine ODT 10 MG TAB PO SCH (09:05)
[2017-07-27] MEDS: HALOPERIDOL 2 MG TAB PO SCH (09:05)
--- NOTE | 2017-07-27 12:55 | HHI.PYPN ---
Subjective Remarks Patient seen and examined with nurse. Chart reviewed. Case discussed with nursing staff. On my examination today, patient continues to describe delusional content as before. She is worried about criminals outside her window. This delusion seems to be generalizing however, and she now also has paranoia related to the pharmacist, whom she believes may be somehow working with the criminals. I have tried to reassure her to the contrary, but she remains very suspicious. She has remained medication compliant however. No reported side effects from medications. No physical complaints. Review of Systems ROS Limitations: Poor Historian Except as stated in HPI: all other systems reviewed are Neg Objective Alert: Yes [place]: Person, Place Mood: Anxious Affect: Restricted Memory Intact: Comment (Not formally assessed) Hallucinations: Auditory (no CAH reported) Delusions: Yes Delusion Type: Paranoid Suicidal: Ideation (No SI voiced) Homicidal: Ideation (No HI voiced) Insight/Judgment Poor Remarks I do note a mild resting hand tremor now. No cogwheeling, no dystonias, no dyskinesias. Thought process quite perseverative on delusional themes. Labs Labs reviewed. Vitals/IOs Vital Signs Date Time Temp Pulse Resp B/P (MAP) Pulse Ox O2 Delivery O2 Flow Rate FiO2 07/27/17 06:23 98.4 82 18 116/78 (91) 98 Assessment & Plan Problem List: (1) Other psychotic disorder not due to a substance or known physiological condition ICD Codes: F28 - Other psychotic disorder not due to a substance or known physiological condition Status: Acute Assessment & Plan Titrate Haldol to 5 mg twice daily to target ongoing psychotic symptoms. 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 Continue Zyprexa as ordered. Monitor for any medication nonadherence now that apparently the patient believes that the hospital pharmacist is somehow in league with the criminals. Continue to monitor on the inpatient unit. Continue other medications and care as ordered. Justification for Cont. Inpt. Medication changes and process. Impairment in reality construction. High risk for decompensation in less restrictive environment. Discharge Planning Pending psychiatric stabilization. Request HC Surrog/Guard Advoc?: No Abdulaziz Brown MD Jul 27, 2017 12:55
[2017-07-27] MEDS: LORazepam 1 MG TAB PO PRN (13:27)
[2017-07-27 18:51] VITALS: BP 114/68; PULSE 96; RESP 18; TEMP 98.6; O2SAT 99
[2017-07-27] MEDS: BENZTROPINE MESYLATE 1 MG TAB PO SCH (20:41)
[2017-07-27] MEDS: HALOPERIDOL 5 MG TAB PO SCH (20:41)
[2017-07-27] MEDS: OLANZapine ODT 15 MG TAB PO SCH (20:43)
[2017-07-27] MEDS: LORazepam 2 MG/ML VIAL IM PRN (22:16)
[2017-07-28] MEDS: LEVOTHYROXINE SODIUM 100 MCG TAB PO SCH (05:55)
[2017-07-28 05:59] VITALS: BP 112/69; PULSE 73; RESP 17; TEMP 97.7
[2017-07-28] MEDS: OLANZapine ODT 10 MG TAB PO SCH (09:30)
[2017-07-28] MEDS: clonazePAM 1 MG TAB PO SCH ×2 (09:30→20:33)
[2017-07-28] MEDS: HALOPERIDOL 5 MG TAB PO SCH ×2 (09:30→20:32)
[2017-07-28] MEDS: BENZTROPINE MESYLATE 1 MG TAB PO SCH ×2 (09:33→20:32)
--- NOTE | 2017-07-28 12:21 | HHI.PYPN ---
Subjective Remarks Patient seen and examined with nurse. Chart reviewed. Case discussed with nursing staff. Nurse relates that the patient was standing at the doorway between the 2600 unit in the geropsychiatric unit, looking through the glass and directing people over on the other unit in a paranoid fashion. Case discussed with counselor who reports that she has spoken with patient's daughter who relates that the patient has had episodes of similar severity in the past and has responded to medications previously, although daughter cannot remember which ones exactly. On my examination today, the patient remains quite guarded and paranoid. She continues to believe that criminals are after her. She threatens not to eat, although her PO intake seems to be good per notes. Complains of some dry mouth but otherwise denies side effects from medications. No physical complaints. Review of Systems ROS Limitations: Psychotic, Poor Historian Except as stated in HPI: all other systems reviewed are Neg Objective Alert: Yes [place]: Person, Place Mood: Anxious Affect: Restricted (dysphoric) Memory Intact: Comment (Not formally assessed) Hallucinations: Other (No reported AVH) Delusions: Yes Delusion Type: Paranoid Suicidal: Ideation (No SI) Homicidal: Ideation (No HI) Insight/Judgment Poor Remarks No motor abnormalities noted. No EPS on exam today. Thought process remains perseverative on delusional themes. Grooming and hygiene fair. Labs Labs reviewed. Vitals/IOs Vital Signs Date Time Temp Pulse Resp B/P (MAP) Pulse Ox O2 Delivery O2 Flow Rate FiO2 07/28/17 05:59 97.7 73 17 112/69 (83) 07/27/17 18:51 99 Intake and Output 07/28/17 07/28/17 07/29/17 08:00 16:00 00:00 Intake Total 480 ml Balance 480 ml Assessment & Plan Problem List: (1) Other psychotic disorder not due to a substance or known physiological condition ICD Codes: F28 - Other psychotic disorder not due to a substance or known physiological condition Status: Acute Assessment & Plan Check EKG to ensure QTc has not become prolonged with high-dose antipsychotic therapy. So long as intervals are not prolonged, to consider further titration of Haldol to target psychotic symptoms. Biotene for dry mouth. Continue current psychotropics as ordered for now. Continue to monitor on the inpatient unit. Continue other medications and care as ordered. Justification for Cont. Inpt. Impairment in reality construction. High risk for decompensation in less restrictive environment. Discharge Planning Pending psychiatric stabilization. Request HC Surrog/Guard Advoc?: No Abdulaziz Brown MD Jul 28, 2017 12:21
[2017-07-28 18:30] VITALS: BP 128/70; PULSE 100; RESP 18; TEMP 98.6; O2SAT 98
[2017-07-28] MEDS: OLANZapine ODT 15 MG TAB PO SCH (20:32)
[2017-07-29 05:31] VITALS: BP 113/72; PULSE 102; RESP 16; TEMP 97.7; O2SAT 97
[2017-07-29] MEDS: LEVOTHYROXINE SODIUM 100 MCG TAB PO SCH (05:42)
[2017-07-29] MEDS: HALOPERIDOL 5 MG TAB PO SCH ×2 (08:59→21:03)
[2017-07-29] MEDS: BENZTROPINE MESYLATE 1 MG TAB PO SCH ×2 (08:59→21:03)
[2017-07-29] MEDS: clonazePAM 1 MG TAB PO SCH ×2 (08:59→21:03)
[2017-07-29] MEDS: OLANZapine ODT 10 MG TAB PO SCH (08:59)
[2017-07-29] MEDS: ACETAMINOPHEN 325 MG TAB PO PRN (09:11)
--- NOTE | 2017-07-29 11:17 | HHI.PYPN ---
Subjective Remarks Patient seen and examined with counselor. Chart reviewed. Case discussed with nursing staff. On my examination today, patient remains quite paranoid and delusional regarding themes as before. She believes that there are criminals outside her window that are preventing her from sleeping. Her sleep is consequently poor. She says that they are threatening her with pistols. She is quite anxious and fretful about this. She also is anxious about the bathroom , and it seems that she is fearful that there are criminals there as well. No SI or HI voiced. Complains of worsening resting tremor but otherwise no side effects from medications. No physical complaints. Review of Systems ROS Limitations: Psychotic, Poor Historian Except as stated in HPI: all other systems reviewed are Neg Objective Alert: Yes [place]: Person, Place Mood: Anxious Affect: Restricted (remains dysphoric) Memory Intact: Comment (Not formally assessed) Hallucinations: Auditory (hears criminals outside her window) Delusions: Yes Delusion Type: Paranoid Suicidal: Ideation (no SI voiced) Homicidal: Ideation (no HI voiced) Insight/Judgment Poor Remarks Resting tremor noted. Some mild cogwheeling. No dystonias or dyskinesias noted. No other motoric abnormalities noted. Thought process is quite perseverative on delusional themes, and she speaks of little else. Labs Labs reviewed. Vitals/IOs Vital Signs Date Time Temp Pulse Resp B/P (MAP) Pulse Ox O2 Delivery O2 Flow Rate FiO2 07/29/17 05:31 97.7 102 16 113/72 (86) 97 Assessment & Plan Problem List: (1) Other psychotic disorder not due to a substance or known physiological condition ICD Codes: F28 - Other psychotic disorder not due to a substance or known physiological condition Status: Acute Assessment & Plan Titrate Haldol to 7.5 mg twice daily to try to target psychotic symptoms. EKG revealed normal sinus rhythm with a QTC of 400 ms. This is somewhat prolonged versus previous reading but well within the range of normal. Titrate scheduled Cogentin to 1 mg twice daily to target EPS. Continue Zyprexa as ordered. If robust medication regimen as detailed above does not result in significant amelioration of psychotic symptoms, I think a clozapine trial is reasonable. I have ordered a CBC for Tuesday morning in anticipation of possible initiation of clozapine trial at that time. Continue to monitor on the inpatient unit. Continue other medications and care as ordered. Justification for Cont. Inpt. Impairment in reality construction. Medication changes in process. High risk for decompensation and less restrictive environment. Discharge Planning Pending psychiatric stabilization Request HC Surrog/Guard Advoc?: No Abdulaziz Brown MD Jul 29, 2017 11:17
--- NOTE | 2017-07-29 16:46 | EKG ---
Date Performed: 07/28/2017 Time Performed: 17:10:17 PTAGE: 47 years EKG: Sinus rhythm NORMAL ECG Since PREVIOUS TRACING , no significant change noted PREVIOUS TRACIN07/17/2017 16.23 DOCTOR: Ashley Contreras Interpretating Date/Time 07/29/2017 16:46:17
[2017-07-29] MEDS ORDERED: PILL SPLITTER OTHER PRN (17:15)
[2017-07-29 18:34] VITALS: BP 130/85; PULSE 93; RESP 18; TEMP 98.3; O2SAT 97
[2017-07-29] MEDS: LORazepam 1 MG TAB PO PRN (20:17)
[2017-07-29] MEDS: OLANZapine ODT 15 MG TAB PO SCH (21:03)
[2017-07-30] MEDS: LEVOTHYROXINE SODIUM 100 MCG TAB PO SCH (06:08)
[2017-07-30] MEDS: OLANZapine ODT 10 MG TAB PO SCH (09:00)
[2017-07-30] MEDS: clonazePAM 1 MG TAB PO SCH ×2 (09:00→22:52)
[2017-07-30] MEDS: HALOPERIDOL 5 MG TAB PO SCH ×3 (09:00→22:52)
[2017-07-30] MEDS: BENZTROPINE MESYLATE 1 MG TAB PO SCH ×2 (09:00→22:52)
--- NOTE | 2017-07-30 15:00 | HHI.PYPN ---
Subjective Remarks Pt seen and discussed with staff. Today she refused medications and stated that she did not trust them. She has been pacing hallways and having animated conversation with herself. She has been intrusive and required redirection. She has been muttering about going on an "acid trip". Objective Alert: Yes [place]: Person, Place Mood: Anxious Affect: Labile Memory Intact: Comment (Not formally assessed) Hallucinations: Auditory Delusions: Yes Delusion Type: Paranoid Suicidal: Ideation (no SI voiced) Homicidal: Ideation (no HI voiced) Insight/Judgment poor Vitals/IOs Vital Signs Date Time Temp Pulse Resp B/P (MAP) Pulse Ox O2 Delivery O2 Flow Rate FiO2 07/29/17 18:34 98.3 93 18 130/85 (100) 97 Assessment & Plan Problem List: (1) Other psychotic disorder not due to a substance or known physiological condition ICD Codes: F28 - Other psychotic disorder not due to a substance or known physiological condition Status: Acute Assessment & Plan Continue current tx plan. Estimated LOS: days Justification for Cont. Inpt. psychosis Request HC Surrog/Guard Advoc?: Geri Rangel MD Jul 30, 2017 15:00
[2017-07-30] MEDS: hydrOXYzine HCL 50 MG TAB PO PRN (15:36)
[2017-07-30 18:49] VITALS: BP 114/66; PULSE 103; RESP 18; TEMP 98.9; O2SAT 98
[2017-07-30] MEDS: OLANZapine ODT 15 MG TAB PO SCH (22:52)
[2017-07-31] MEDS: LEVOTHYROXINE SODIUM 100 MCG TAB PO SCH (06:22)
[2017-07-31 06:34] VITALS: BP 109/69; PULSE 85; RESP 18; TEMP 98.6; O2SAT 97
[2017-07-31] MEDS: HALOPERIDOL 5 MG TAB PO SCH ×2 (08:36→22:42)
[2017-07-31] MEDS: BENZTROPINE MESYLATE 1 MG TAB PO SCH ×2 (08:36→22:41)
[2017-07-31] MEDS: clonazePAM 1 MG TAB PO SCH ×2 (08:36→22:42)
[2017-07-31] MEDS: OLANZapine ODT 10 MG TAB PO SCH (08:36)
--- NOTE | 2017-07-31 15:01 | HHI.PYPN ---
Subjective Remarks Pt seen and discussed with staff. She remains paranoid with AH. She reluctantly took medications and has been less agitated. Bizarre behaviors persists, but no aggression. No SI/HI Objective Alert: Yes [place]: Person, Place Mood: Anxious Affect: Restricted Memory Intact: Comment (Not formally assessed) Hallucinations: Auditory Delusions: Yes Delusion Type: Paranoid Suicidal: Ideation (no SI voiced) Homicidal: Ideation (no HI voiced) Insight/Judgment poor Vitals/IOs Vital Signs Date Time Temp Pulse Resp B/P (MAP) Pulse Ox O2 Delivery O2 Flow Rate FiO2 07/31/17 06:34 98.6 85 18 109/69 (82) 97 Intake and Output 07/31/17 07/31/17 07/31/17 07:59 15:59 23:59 Intake Total 240 ml Balance 240 ml Assessment & Plan Problem List: (1) Other psychotic disorder not due to a substance or known physiological condition ICD Codes: F28 - Other psychotic disorder not due to a substance or known physiological condition Status: Acute Assessment & Plan Continue current tx plan. Estimated LOS: days Justification for Cont. Inpt. impairments in reality testing Request HC Surrog/Guard Advoc?: No Grei Gillespie MD Jul 31, 2017 15:01
[2017-07-31] MEDS: LORazepam 2 MG/ML VIAL IM PRN (17:28)
[2017-07-31 18:39] VITALS: BP 120/78; PULSE 82; RESP 18; TEMP 98.2; O2SAT 98
[2017-07-31] MEDS: ACETAMINOPHEN 325 MG TAB PO PRN (19:48)
[2017-07-31] MEDS: OLANZapine ODT 15 MG TAB PO SCH (22:42)
[2017-08-01 04:56] VITALS: BP 120/81; PULSE 82; RESP 17; TEMP 97.6
[2017-08-01] MEDS: LEVOTHYROXINE SODIUM 100 MCG TAB PO SCH (06:07)
[2017-08-01] MEDS: ACETAMINOPHEN 325 MG TAB PO PRN (09:23)
[2017-08-01] MEDS: BENZTROPINE MESYLATE 1 MG TAB PO SCH (09:23)
[2017-08-01] MEDS: clonazePAM 1 MG TAB PO SCH ×2 (09:23→22:21)
[2017-08-01] MEDS: OLANZapine ODT 10 MG TAB PO SCH (09:23)
[2017-08-01 11:06] LABS: AUTOMATED NEUTROPHIL # 2.3 TH/MM3 (1.8-7.7); BASOPHIL % 0.1 % (0.0-2.0); EOSINOPHIL % 0.2 % (0.0-4.0); HEMATOCRIT 40.2 % (35.0-46.0); HEMO FLAGS DIFF FINAL; LYMPH % 30.3 % (9.0-44.0); LYMPHOCYTE # 1.2 TH/MM3 (1.0-4.8); MEAN CELL VOLUME 88.5 FL (80.0-100.0); MEAN CORPUSCULAR HEMOGLOBIN 30.5 PG (27.0-34.0); MEAN CORPUSCULAR HGB CONC 34.5 % (32.0-36.0); MONO % 10.8 % (0.0-8.0); NEUT % 58.6 % (16.0-70.0); PLATELET COUNT 249 TH/MM3 (150-450); RED BLOOD COUNT 4.54 MIL/MM3 (4.00-5.30); RED CELL DISTRIBUTION WIDTH 12.4 % (11.6-17.2); WHITE BLOOD COUNT 3.9 TH/MM3 (4.0-11.0)
--- NOTE | 2017-08-01 12:35 | HHI.PYPN ---
Subjective Remarks Patient seen and examined with counselor and nurse. Chart reviewed. Case discussed with nursing staff who reports the patient remains paranoid and delusional. On my examination today, the patient continues to describe belief that criminals are outside her room. She remains anxious and fearful. She explains once again that she has to turn on her room light slowly in order to scare them away. Also remains paranoid regarding the bathroom. Denies side effects from medications. No physical complaints. Review of Systems ROS Limitations: Psychotic, Poor Historian Except as stated in HPI: all other systems reviewed are Neg Objective Alert: Yes [place]: Person, Place Mood: Anxious, Other (dysphoric) Affect: Restricted Memory Intact: Comment (Not formally assessed) Hallucinations: Auditory Delusions: Yes Delusion Type: Paranoid (ongoing) Suicidal: Ideation (No SI) Homicidal: Ideation (No HI) Insight/Judgment Poor Remarks No motor abnormalities noted. No hand tremor, no dystonia, no dyskinesia. Thought process remains perseverative on paranoid delusional themes. Grooming and hygiene seemed to be declining somewhat. Labs Test 08/01/17 10:20 White Blood Count 3.9 TH/MM3 Red Blood Count 4.54 MIL/MM3 Hemoglobin 13.9 GM/DL Hematocrit 40.2 % Mean Corpuscular Volume 88.5 FL Mean Corpuscular Hemoglobin 30.5 PG Mean Corpuscular Hemoglobin Concent 34.5 % Red Cell Distribution Width 12.4 % Platelet Count 249 TH/MM3 Mean Platelet Volume 7.6 FL Neutrophils (%) (Auto) 58.6 % Lymphocytes (%) (Auto) 30.3 % Monocytes (%) (Auto) 10.8 % Eosinophils (%) (Auto) 0.2 % Basophils (%) (Auto) 0.1 % Neutrophils # (Auto) 2.3 TH/MM3 Lymphocytes # (Auto) 1.2 TH/MM3 Monocytes # (Auto) 0.4 TH/MM3 Eosinophils # (Auto) 0.0 TH/MM3 Basophils # (Auto) 0.0 TH/MM3 CBC Comment DIFF FINAL Differential Comment Labs reviewed. ANC adequate for clozapine therapy. White blood cell count is mildly decreased, but this is not a contraindication to starting clozapine. Vitals/IOs Vital Signs Date Time Temp Pulse Resp B/P (MAP) Pulse Ox O2 Delivery O2 Flow Rate FiO2 08/01/17 04:56 97.6 82 17 120/81 (94) 07/31/17 18:39 98 Intake and Output 08/01/17 08/01/17 08/02/17 08:00 16:00 00:00 Intake Total 360 ml 260 ml Balance 360 ml 260 ml Assessment & Plan Problem List: (1) Other psychotic disorder not due to a substance or known physiological condition ICD Codes: F28 - Other psychotic disorder not due to a substance or known physiological condition Status: Acute Assessment & Plan Discontinue antipsychotics and scheduled benztropine and start clozapine 25 mg at bedtime with plans to titrate to effect. I have enrolled the patient in the clozapine REMS (ID# [id number]). R/B/A d/w patient. Given marginally low white blood cell count, I will check a CBC in 3 days as well as the regular, weekly CBC next Tuesday to ensure that the patient does not experience worsening neutropenia around initiation of clozapine. Continue to monitor on the inpatient unit. Continue other medications and care as ordered. Justification for Cont. Inpt. Impairment in reality construction. Medication changes and process. High risk for decompensation in less restrictive environment. Discharge Planning Pending psychiatric stabilization. Request HC Surrog/Guard Advoc?: No Abdulaziz Brown MD Aug 01, 2017 12:35
[2017-08-01] MEDS ORDERED: cloZAPine 25 MG TAB PO SCH (21:00)
[2017-08-02 06:00] VITALS: BP 97/65; PULSE 77; RESP 18; TEMP 98.3; O2SAT 98
[2017-08-02] MEDS: LEVOTHYROXINE SODIUM 100 MCG TAB PO SCH (06:01)
[2017-08-02] MEDS: clonazePAM 1 MG TAB PO SCH ×2 (08:50→20:50)
--- NOTE | 2017-08-02 11:03 | PD.TTN ---
Patient Problems 1. Discharge planning 2. Medication compliance 3. Knowledge deficit 4. Lack of coping skills Progress Toward Goals Provider Present: Dr. Hudson Brown Provider Input: Dr. Brown reported the patient remains paranoid and requested counselor contact patient's family to discuss patient's baseline and treatment plan. Nurse(s) Present: Bette Nurse(s) Input: Nurse Bette reported the patient remains paranoid and followed the houskeeper into the shower room. Bette reported the patient thinks the seed analysis laboratory assistant is spraying cleaning products to annoy the patient. Psychiatric Counselors Present: BIANCA Arrieta Psych Therapist Input: Counselor reported the patient remains confused, extremely paranoid, and delusional. Counselor will contact patient's daughter to discuss patient baseline, treatment plan, and plan for discharge. Group Spec/RT/OT/KRAMER Present: WILLIAMS Lopes Group Spec/RT/OT/KRAMER Input: Emeterio reported the patient occasionally attends groups, however, when she does attend patient displays paranoid and confused behaviors. Documentation Scribe: BIANCA Arrieta Date Resolved: Jul 26, 2017 Marli Zamorano Aug 02, 2017 11:03
--- NOTE | 2017-08-02 11:03 | PD.TTN ---
Patient Problems 1. Discharge planning 2. Medication compliance 3. Knowledge deficit 4. Lack of coping skills Progress Toward Goals Provider Present: Dr. Hudson Brown Provider Input: Dr. Brown reported the patient remains paranoid and requested counselor contact patient's family to discuss patient's baseline and treatment plan. Nurse(s) Present: Bette Nurse(s) Input: Nurse Bette reported the patient remains paranoid and followed the houskeeper into the shower room. Bette reported the patient thinks the mail room clerk is spraying cleaning products to annoy the patient. Psychiatric Counselors Present: BIANCA Arrieta Psych Therapist Input: Counselor reported the patient remains confused, extremely paranoid, and delusional. Counselor will contact patient's daughter to discuss patient baseline, treatment plan, and plan for discharge. Group Spec/RT/OT/KRAMER Present: WILLIAMS Lopes Group Spec/RT/OT/KRAMER Input: Emeterio reported the patient occasionally attends groups, however, when she does attend patient displays paranoid and confused behaviors. Documentation Scribe: BIANCA Arrieta Date Resolved: Jul 26, 2017 Marli Zamorano Aug 02, 2017 11:03
--- NOTE | 2017-08-02 13:07 | HHI.PYPN ---
Subjective Remarks Patient seen and examined. Chart reviewed. Case discussed in treatment team. Patient remains paranoid both with nursing staff and during unit activities with occupational therapy. On my examination today, patient remains paranoid and perseverates on a "tall black man and a little black woman." She also says that she saw some sort of spiral shape in the breakfast table this morning. Also remains delusional about people being after her as before. No SI or HI voiced. No side effects from medications. No physical complaints. Review of Systems ROS Limitations: Psychotic, Poor Historian Except as stated in HPI: all other systems reviewed are Neg Objective Alert: Yes [place]: Person, Place Mood: Anxious, Other (remains somewhat dysphoric) Affect: Restricted Memory Intact: Comment (Not formally assessed) Hallucinations: Auditory Delusions: Yes Delusion Type: Paranoid Suicidal: Ideation (no SI voiced) Homicidal: Ideation (no HI voiced) Insight/Judgment Poor Remarks No motor abnormalities noted. Labs Labs reviewed. 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 We discuss more the side effects of clozapine, and I counseled the patient on safe standing in the event of hypotension. Continue to monitor on the inpatient unit. Continue other medications include as ordered. Justification for Cont. Inpt. Impairment in reality construction. High risk for decompensation in less restrictive environment. Medication changes in process. Discharge Planning Pending psychiatric stabilization. Request HC Surrog/Guard Advoc?: No Abdulaziz Brown MD Aug 02, 2017 13:07
[2017-08-02 17:20] VITALS: BP 161/80; PULSE 80; RESP 17; TEMP 97.9; O2SAT 100
[2017-08-02] MEDS: cloZAPine 25 MG TAB PO SCH (20:50)
[2017-08-03 06:23] VITALS: BP 122/63; PULSE 76; RESP 16; TEMP 98.1; O2SAT 95
[2017-08-03] MEDS: LEVOTHYROXINE SODIUM 100 MCG TAB PO SCH (06:28)
[2017-08-03] MEDS: cloZAPine 25 MG TAB PO SCH ×2 (09:24→20:29)
[2017-08-03] MEDS: clonazePAM 1 MG TAB PO SCH ×2 (09:24→20:29)
--- NOTE | 2017-08-03 11:29 | HHI.PYPN ---
Subjective Remarks Patient seen and examined. Chart reviewed. Case discussed with nursing staff. On my exam, patient remains paranoid, concerned with criminals outside her window. She is suspicious because she left her bathroom door closed with the light on and has returned to find the door open and the light off. She interprets some sort of malign intent into this. She notes her roommate has some paperwork on the floor and asks me conspiratorially to read it to her. She does, however, seem less anxious and dysphoric today, and I note that she even smiles at intervals. Denies side effects from meds. No physical complaints. Review of Systems ROS Limitations: Psychotic Except as stated in HPI: all other systems reviewed are Neg Objective Alert: Yes [place]: Person, Place Mood: Calm Affect: Other (more affective reactivity) Memory Intact: Comment (Not formally assessed) Hallucinations: Other (No AVH) Delusions: Yes Delusion Type: Paranoid Suicidal: Ideation (No SI) Homicidal: Ideation (No HI) Insight/Judgment Poor Remarks No hand tremor or other abnormal motor movements noted. TP linear within delusional system. Grooming and hygiene seem a little improved today. Labs Labs reviewed. Vitals/IOs Vital Signs Date Time Temp Pulse Resp B/P (MAP) Pulse Ox O2 Delivery O2 Flow Rate FiO2 08/03/17 06:23 98.1 76 16 122/63 (82) 95 Assessment & Plan Problem List: (1) Other psychotic disorder not due to a substance or known physiological condition ICD Codes: F28 - Other psychotic disorder not due to a substance or known physiological condition Status: Acute Assessment & Plan Possibly some early signs of improvement in affective reactivity with clozapine. Clozapine 75mg total daily dose today. Titrate to clozapine 25/ 75mg tomorrow with plans to continue clozapine titration to target psychotic symptoms. Check CBC tomorrow morning. Continue to monitor on inpatient unit. Continue other medications and care as ordered. Justification for Cont. Inpt. Med changes in process. Impairment in reality construction. High risk for decompensation in less restrictive environment. Discharge Planning Pending psychiatric stabilization. Request HC Surrog/Guard Advoc?: No Abdulaziz Brown MD Aug 03, 2017 11:29
[2017-08-03 18:00] VITALS: BP 151/92; PULSE 90; RESP 18; TEMP 97.7; O2SAT 99
[2017-08-04] MEDS: LEVOTHYROXINE SODIUM 100 MCG TAB PO SCH (05:36)
[2017-08-04 06:20] VITALS: BP 136/93; PULSE 93; RESP 18; TEMP 98.5; O2SAT 99
[2017-08-04] MEDS: clonazePAM 1 MG TAB PO SCH ×2 (08:56→22:39)
[2017-08-04] MEDS: cloZAPine 25 MG TAB PO SCH (08:57)
[2017-08-04 10:07] LABS: AUTOMATED NEUTROPHIL # 3.1 TH/MM3 (1.8-7.7); BASOPHIL % 0.1 % (0.0-2.0); EOSINOPHIL % 0.2 % (0.0-4.0); HEMATOCRIT 41.8 % (35.0-46.0); HEMO FLAGS DIFF FINAL; LYMPH % 29.9 % (9.0-44.0); LYMPHOCYTE # 1.6 TH/MM3 (1.0-4.8); MEAN CELL VOLUME 88.4 FL (80.0-100.0); MEAN CORPUSCULAR HEMOGLOBIN 30.8 PG (27.0-34.0); MEAN CORPUSCULAR HGB CONC 34.8 % (32.0-36.0); MONO % 11.3 % (0.0-8.0); NEUT % 58.5 % (16.0-70.0); PLATELET COUNT 232 TH/MM3 (150-450); RED BLOOD COUNT 4.72 MIL/MM3 (4.00-5.30); RED CELL DISTRIBUTION WIDTH 12.2 % (11.6-17.2); WHITE BLOOD COUNT 5.2 TH/MM3 (4.0-11.0)
--- NOTE | 2017-08-04 11:50 | HHI.PYPN ---
Subjective Remarks Patient seen and examined with counselor. Chart reviewed. Case discussed with nursing staff who notes that the patient remains delusional but seems less fearful on Clozaril. On my examination today, patient is once again less anxious and dysphoric. She seems more concerned with quotidian matters, like her roommate's noisiness, than with criminals outside her window. However, when asked, patient continues to articulate the belief that she is being stalked by criminals outside her window with associated ongoing preoccupation with light switches and the bathroom. Denies SI or HI. Denies side effects from medications. No physical complaints. Later on the unit, she hands me a sheaf of papers rolled up with a rubber band. Most of these are blank, although the first page contains a brief, disorganized letter of apology. There is nothing in the letter that I can ascertain that suggests risk for suicide or violence. Review of Systems ROS Limitations: Psychotic, Poor Historian Except as stated in HPI: all other systems reviewed are Neg Objective Alert: Yes [place]: Person, Place Mood: Calm Affect: Other (affect once again more reactive) Memory Intact: Comment (Not formally assessed) Hallucinations: Other (No AVH) Delusions: Yes Delusion Type: Paranoid (ongoing, but perhaps a little less prominent today) Suicidal: Ideation (denies) Homicidal: Ideation (denies) Insight/Judgment Poor Remarks no motoric abnormalities appreciated. Grooming and hygiene remains somewhat improved. Thought process less perseverative on delusional themes today. Labs Test 08/04/17 08:51 White Blood Count 5.2 TH/MM3 Red Blood Count 4.72 MIL/MM3 Hemoglobin 14.6 GM/DL Hematocrit 41.8 % Mean Corpuscular Volume 88.4 FL Mean Corpuscular Hemoglobin 30.8 PG Mean Corpuscular Hemoglobin Concent 34.8 % Red Cell Distribution Width 12.2 % Platelet Count 232 TH/MM3 Mean Platelet Volume 7.8 FL Neutrophils (%) (Auto) 58.5 % Lymphocytes (%) (Auto) 29.9 % Monocytes (%) (Auto) 11.3 % Eosinophils (%) (Auto) 0.2 % Basophils (%) (Auto) 0.1 % Neutrophils # (Auto) 3.1 TH/MM3 Lymphocytes # (Auto) 1.6 TH/MM3 Monocytes # (Auto) 0.6 TH/MM3 Eosinophils # (Auto) 0.0 TH/MM3 Basophils # (Auto) 0.0 TH/MM3 CBC Comment DIFF FINAL Differential Comment Labs reviewed. ANC adequate for ongoing clozapine therapy. Vitals/IOs Vital Signs Date Time Temp Pulse Resp B/P (MAP) Pulse Ox O2 Delivery O2 Flow Rate FiO2 08/04/17 06:20 98.5 93 18 136/93 (107) 99 Assessment & Plan Problem List: (1) Other psychotic disorder not due to a substance or known physiological condition ICD Codes: F28 - Other psychotic disorder not due to a substance or known physiological condition Status: Acute Assessment & Plan Titrate clozapine to 25/75 mg today with plans for further clozapine titration in succeeding days to target ongoing psychotic symptoms. We do seem to be making some progress on her delusional material and associated anxiety and dysphoria with this new agent. Continue to monitor on the inpatient unit. Continue other medications and care as ordered. Justification for Cont. Inpt. Med changes. Impairment in reality construction. High risk for decompensation in less restrictive environment. Discharge Planning Pending psychiatric stabilization Request HC Surrog/Guard Advoc?: No Abdulaziz Brown MD Aug 04, 2017 11:50
[2017-08-04 20:30] VITALS: BP 134/77; PULSE 98; RESP 18; TEMP 97.7; O2SAT 98
[2017-08-04] MEDS ORDERED: cloZAPine 25 MG TAB PO SCH (21:00)
[2017-08-04] MEDS: ACETAMINOPHEN 325 MG TAB PO PRN (22:40)
[2017-08-05 05:15] VITALS: BP 115/69; PULSE 76; RESP 16; TEMP 97.9; O2SAT 97
[2017-08-05] MEDS: LEVOTHYROXINE SODIUM 100 MCG TAB PO SCH (06:27)
[2017-08-05] MEDS: cloZAPine 25 MG TAB PO SCH ×2 (09:00→19:44)
[2017-08-05] MEDS: clonazePAM 1 MG TAB PO SCH ×2 (09:00→19:44)
--- NOTE | 2017-08-05 11:56 | HHI.PYPN ---
Subjective Remarks Patient seen and examined. Chart reviewed. Case discussed with nursing staff who reports patient is somewhat intrusive and bossy towards other patients and staff, for example trying to dictate how prosaic actions like answering the phone are to be done. She refused her clozapine last night but accepted it this morning. On my examination today, the patient continues to perseverate on her bathroom door and light being different from the way she left them. She is somewhat paranoid regarding medications. No mention of criminals today, and overall her focus seems to be on more mundane concerns as suggested by nursing staff. Denies side effects from medications. No physical complaints. Review of Systems ROS Limitations: Psychotic, Poor Historian Except as stated in HPI: all other systems reviewed are Neg Objective Alert: Yes [place]: Person, Place Mood: Calm Affect: Appropriate Memory Intact: Comment (Not formally assessed) Hallucinations: Other (No AVH) Delusions: Yes Delusion Type: Paranoid Suicidal: Ideation (no SI) Homicidal: Ideation (no HI) Insight/Judgment Poor Remarks Thought process somewhat perseverative on material as detailed above. Grooming and hygiene fair. No hand tremor, no dystonia, no dyskinesia noted. Labs Labs reviewed. Vitals/IOs Vital Signs Date Time Temp Pulse Resp B/P (MAP) Pulse Ox O2 Delivery O2 Flow Rate FiO2 08/05/17 05:15 97.9 76 16 115/69 (84) 97 Assessment & Plan Problem List: (1) Other psychotic disorder not due to a substance or known physiological condition ICD Codes: F28 - Other psychotic disorder not due to a substance or known physiological condition Status: Acute Assessment & Plan Continue clozapine titration through the weekend to a target dose of 50/150 mg after the weekend. Please consider further titration of this agent to target ongoing psychotic symptoms if needed. CBC ordered for next 2 Mondays. Continue other psychotropics as ordered. Continue to monitor on the inpatient unit. Continue other medications and care as ordered. Justification for Cont. Inpt. Med changes. Impairment in reality construction. High risk for decompensation and less restrictive environment. Discharge Planning Pending psychiatric stabilization. Request HC Surrog/Guard Advoc?: No Abdulaziz Brown MD Aug 05, 2017 11:55
[2017-08-05 17:09] VITALS: BP 156/69; PULSE 100; RESP 17; TEMP 97.9; O2SAT 100
[2017-08-05] MEDS: LORazepam 2 MG/ML VIAL IM PRN (19:44)
[2017-08-06 05:56] VITALS: BP 109/65; PULSE 93; RESP 16; TEMP 97.2; O2SAT 97
[2017-08-06] MEDS: LEVOTHYROXINE SODIUM 100 MCG TAB PO SCH (06:12)
[2017-08-06] MEDS: clonazePAM 1 MG TAB PO SCH ×2 (07:55→20:06)
[2017-08-06] MEDS: cloZAPine 25 MG TAB PO SCH ×2 (07:55→20:06)
[2017-08-06] MEDS: ACETAMINOPHEN 325 MG TAB PO PRN (12:25)
--- NOTE | 2017-08-06 18:13 | HHI.PYPN ---
Subjective Remarks Patient was seen and case discussed with nursing. Patient remains paranoid and is convinced that the staff believes she is the instigator of all events and is asking why they're picking on her. No other bizarre delusions elicited. Remains paranoid and vigilant. Denies auditory visual hallucinations. Tolerating medications well Objective Alert: Yes [place]: Person, Place Mood: Calm Affect: Appropriate Memory Intact: Comment (Not formally assessed) Hallucinations: Other (No AVH) Delusions: Yes Delusion Type: Paranoid Suicidal: Ideation (no SI) Homicidal: Ideation (no HI) Insight/Judgment Poor Vitals/IOs Vital Signs Date Time Temp Pulse Resp B/P (MAP) Pulse Ox O2 Delivery O2 Flow Rate FiO2 08/06/17 14:12 18 08/06/17 05:56 97.2 93 109/65 (80) 97 Assessment & Plan Problem List: (1) Other psychotic disorder not due to a substance or known physiological condition ICD Codes: F28 - Other psychotic disorder not due to a substance or known physiological condition Status: Acute Assessment & Plan Continue current treatment plan Justification for Cont. Inpt. Patient would decompensate in a less restrictive setting Request HC Surrog/Guard Advoc?: No Reyes Hopson DO Aug 06, 2017 18:13
[2017-08-06 18:22] VITALS: BP 134/87; PULSE 94; RESP 17; TEMP 97.5; O2SAT 97
[2017-08-07] MEDS: LEVOTHYROXINE SODIUM 100 MCG TAB PO SCH (05:57)
[2017-08-07 05:58] VITALS: BP 131/73; PULSE 100; RESP 18; TEMP 97.8; O2SAT 98
[2017-08-07] MEDS: cloZAPine 25 MG TAB PO SCH ×2 (08:29→20:24)
[2017-08-07] MEDS: clonazePAM 1 MG TAB PO SCH ×2 (08:29→20:24)
--- NOTE | 2017-08-07 15:25 | HHI.PYPN ---
Subjective Remarks Patient was seen and case discussed with nursing. Patient remains paranoid throughout the day. She says she is afraid of another patient and can hear her talking with her eyes. Complaining of a headache. And dry eyes. Objective Alert: Yes [place]: Person, Place Mood: Anxious Affect: Appropriate Memory Intact: Comment (Not formally assessed) Hallucinations: Other (No AVH) Delusions: Yes Delusion Type: Paranoid (patient is talking about her with her eyes) Suicidal: Ideation (no SI) Homicidal: Ideation (no HI) Insight/Judgment Poor Vitals/IOs Vital Signs Date Time Temp Pulse Resp B/P (MAP) Pulse Ox O2 Delivery O2 Flow Rate FiO2 08/07/17 05:58 97.8 100 18 131/73 (92) 98 Assessment & Plan Problem List: (1) Other psychotic disorder not due to a substance or known physiological condition ICD Codes: F28 - Other psychotic disorder not due to a substance or known physiological condition Status: Acute Assessment & Plan Lubricating eyedrops Justification for Cont. Inpt. Patient will decompensate in a less restrictive setting Request HC Surrog/Guard Advoc?: No Reyes Hopson DO Aug 07, 2017 15:25
[2017-08-07] MEDS: ACETAMINOPHEN 325 MG TAB PO PRN (15:38)
[2017-08-07] MEDS ORDERED: ARTIFICIAL TEARS OPTH SOLN 15 ML BTL EACH EYE PRN (16:00)
[2017-08-07 18:00] VITALS: BP 125/71; PULSE 78; RESP 18; TEMP 98.7; O2SAT 99
[2017-08-07] MEDS: hydrOXYzine HCL 50 MG TAB PO PRN ×2 (18:08→20:24)
[2017-08-08 05:47] VITALS: BP 141/98; PULSE 90; RESP 16; TEMP 98.2; O2SAT 98
[2017-08-08] MEDS: LEVOTHYROXINE SODIUM 100 MCG TAB PO SCH (06:07)
[2017-08-08] MEDS: clonazePAM 1 MG TAB PO SCH ×2 (09:24→21:07)
[2017-08-08] MEDS: cloZAPine 25 MG TAB PO SCH ×2 (09:24→21:07)
[2017-08-08 10:55] LABS: AUTOMATED NEUTROPHIL # 2.4 TH/MM3 (1.8-7.7); BASOPHIL % 0.1 % (0.0-2.0); EOSINOPHIL % 0.3 % (0.0-4.0); HEMATOCRIT 42.5 % (35.0-46.0); HEMO FLAGS DIFF FINAL; LYMPH % 34.6 % (9.0-44.0); LYMPHOCYTE # 1.6 TH/MM3 (1.0-4.8); MEAN CELL VOLUME 88.8 FL (80.0-100.0); MEAN CORPUSCULAR HEMOGLOBIN 30.9 PG (27.0-34.0); MEAN CORPUSCULAR HGB CONC 34.8 % (32.0-36.0); MONO % 12.1 % (0.0-8.0); NEUT % 52.9 % (16.0-70.0); PLATELET COUNT 225 TH/MM3 (150-450); RED BLOOD COUNT 4.78 MIL/MM3 (4.00-5.30); RED CELL DISTRIBUTION WIDTH 12.2 % (11.6-17.2); WHITE BLOOD COUNT 4.6 TH/MM3 (4.0-11.0)
[2017-08-08] MEDS: ACETAMINOPHEN 325 MG TAB PO PRN (14:32)
[2017-08-08 15:49] VITALS: BP 127/94; PULSE 98; RESP 18; TEMP 97; O2SAT 99
--- NOTE | 2017-08-08 17:48 | HHI.PYPN ---
Subjective Remarks Patient seen in [place] with nurse Ade, chart reviewed, patient compliant medication. Patient remains vigilant paranoid quite guarded appears to be responding to internal stimuli though she denies voices and denies suicidality. For now continue treatment Review of Systems Except as stated in HPI: all other systems reviewed are Neg Objective Alert: Yes [place]: Person, Place Mood: Anxious Affect: Appropriate Memory Intact: Comment (Not formally assessed) Hallucinations: Other (No AVH) Delusions: Yes Delusion Type: Paranoid (patient is talking about her with her eyes) Suicidal: Ideation (no SI) Homicidal: Ideation (no HI) Insight/Judgment Very poor Labs Test 08/08/17 09:04 White Blood Count 4.6 TH/MM3 Red Blood Count 4.78 MIL/MM3 Hemoglobin 14.8 GM/DL Hematocrit 42.5 % Mean Corpuscular Volume 88.8 FL Mean Corpuscular Hemoglobin 30.9 PG Mean Corpuscular Hemoglobin Concent 34.8 % Red Cell Distribution Width 12.2 % Platelet Count 225 TH/MM3 Mean Platelet Volume 8.0 FL Neutrophils (%) (Auto) 52.9 % Lymphocytes (%) (Auto) 34.6 % Monocytes (%) (Auto) 12.1 % Eosinophils (%) (Auto) 0.3 % Basophils (%) (Auto) 0.1 % Neutrophils # (Auto) 2.4 TH/MM3 Lymphocytes # (Auto) 1.6 TH/MM3 Monocytes # (Auto) 0.6 TH/MM3 Eosinophils # (Auto) 0.0 TH/MM3 Basophils # (Auto) 0.0 TH/MM3 CBC Comment DIFF FINAL Differential Comment Vitals/IOs Vital Signs Date Time Temp Pulse Resp B/P (MAP) Pulse Ox O2 Delivery O2 Flow Rate FiO2 08/08/17 15:49 97.0 98 18 127/94 (105) 99 Assessment & Plan Problem List: (1) Other psychotic disorder not due to a substance or known physiological condition ICD Codes: F28 - Other psychotic disorder not due to a substance or known physiological condition Status: Acute Assessment & Plan Estimated LOS: days patient remained psychotic delusional. Compliant medication. Today states she wants to go home with her family. For now continue treatment Justification for Cont. Inpt. This time patient will decompensate if placed on a lower level of care Discharge Planning To be determined Request HC Surrog/Guard Advoc?: No Byron Walter MD Aug 08, 2017 17:48
[2017-08-09] MEDS: LEVOTHYROXINE SODIUM 100 MCG TAB PO SCH (06:00)
[2017-08-09 06:08] VITALS: BP 125/91; PULSE 102; RESP 16; TEMP 98.1; O2SAT 98
[2017-08-09] MEDS: cloZAPine 25 MG TAB PO SCH ×2 (08:56→21:00)
[2017-08-09] MEDS: clonazePAM 1 MG TAB PO SCH ×2 (08:56→21:00)
--- NOTE | 2017-08-09 10:30 | HHI.PYPN ---
Subjective Remarks Patient seen in [place] with counselor Benitez, chart reviewed, patient compliant medications. She is somewhat calmer more focused today solution some vague paranoia reference to her perceived issues on 26[address] unit. She is vague about any continued tiny auditory hallucinations. For now continue treatment. Counselor's verify if family feels patient ready for discharge Review of Systems Except as stated in HPI: all other systems reviewed are Neg Objective Alert: Yes [place]: Person, Place Mood: Anxious Affect: Appropriate Memory Intact: Comment (Not formally assessed) Hallucinations: Other (No AVH) Delusions: Yes Delusion Type: Paranoid (patient is talking about her with her eyes) Suicidal: Ideation (no SI) Homicidal: Ideation (no HI) Insight/Judgment Very poor Vitals/IOs Vital Signs Date Time Temp Pulse Resp B/P (MAP) Pulse Ox O2 Delivery O2 Flow Rate FiO2 08/09/17 06:08 98.1 102 16 125/91 (102) 98 Assessment & Plan Problem List: (1) Other psychotic disorder not due to a substance or known physiological condition ICD Codes: F28 - Other psychotic disorder not due to a substance or known physiological condition Status: Acute Assessment & Plan Estimated LOS: days patient continues psychotic though it appears to be softening. Compliant medication Justification for Cont. Inpt. At this time patient decompensate with placed in a lower level of care Discharge Planning To be determined Request HC Surrog/Guard Advoc?: Byron Youssef MD Aug 09, 2017 10:30
[2017-08-09 18:26] VITALS: BP 130/73; PULSE 95; RESP 17; TEMP 97.6; O2SAT 100
[2017-08-09] MEDS: hydrOXYzine HCL 50 MG TAB PO PRN (21:00)
[2017-08-10] MEDS: LEVOTHYROXINE SODIUM 100 MCG TAB PO SCH (06:00)
[2017-08-10 06:05] VITALS: BP 112/71; PULSE 99; RESP 16; TEMP 98.2; O2SAT 97
[2017-08-10] MEDS: clonazePAM 1 MG TAB PO SCH ×2 (09:19→21:37)
[2017-08-10] MEDS: cloZAPine 25 MG TAB PO SCH ×2 (09:19→21:37)
--- NOTE | 2017-08-10 14:17 | HHI.PYPN ---
Subjective Remarks Patient seen in her room with nurse Brooks, chart review, patient compliant medications. Patient calm pleasant with me though at times somewhat irritable when discussing discharge plans in the ambiguity that is being given by her family related to placement issues. I did discuss this with the counselor Benitez. Need to consider discharge perhaps by the end of the week to family though that appears to be some resistance to that Review of Systems Except as stated in HPI: all other systems reviewed are Neg Objective Alert: Yes [place]: Person, Place Mood: Anxious Affect: Appropriate Memory Intact: Comment (Not formally assessed) Hallucinations: Other (No AVH) Delusions: Yes Delusion Type: Paranoid (patient is talking about her with her eyes) Suicidal: Ideation (no SI) Homicidal: Ideation (no HI) Insight/Judgment Poor Vitals/IOs Vital Signs Date Time Temp Pulse Resp B/P (MAP) Pulse Ox O2 Delivery O2 Flow Rate FiO2 08/10/17 06:05 98.2 99 16 112/71 (85) 97 Assessment & Plan Problem List: (1) Other psychotic disorder not due to a substance or known physiological condition ICD Codes: F28 - Other psychotic disorder not due to a substance or known physiological condition Status: Acute Assessment & Plan Estimated LOS: days patient psychosis continues to improve, she is compliant with medication. For now continue treatment. Placement may become problematic Justification for Cont. Inpt. At this time patient will decompensate if placed in a lower level of care Discharge Planning To be determined Request HC Surrog/Guard Advoc?: No Byron Walter MD Aug 10, 2017 14:17
[2017-08-10 17:00] VITALS: BP 115/67; PULSE 115; RESP 18; TEMP 98.2; O2SAT 98
[2017-08-11 05:43] VITALS: BP 106/60; PULSE 96; RESP 17; TEMP 97.6
[2017-08-11] MEDS: LEVOTHYROXINE SODIUM 100 MCG TAB PO SCH (06:24)
[2017-08-11] MEDS: clonazePAM 1 MG TAB PO SCH ×2 (09:14→20:45)
[2017-08-11] MEDS: cloZAPine 25 MG TAB PO SCH ×2 (09:14→20:44)
--- NOTE | 2017-08-11 15:10 | HHI.PYPN ---
Subjective Remarks Patient seen in her room with nurse Karely, complaining of some mild increase elevation. Also some dry eye. She is less intense than his paranoid and vigilant. Seems more resigned to working with family related to placement. Will order artificial tears solution, and also Cogentin 0.5 mg twice a day Review of Systems Except as stated in HPI: all other systems reviewed are Neg Mental Status Examination Appearance: Appropriate Consciousness: Alert Orientation: x4 Motor Activity: Normal gait Speech: Unremarkable Language: Adequate Fund of Knowledge: Poor Attention and Concentration: Other (fair) Mood: Other (somewhat restricted) Affect: Other (decreased range and intensity) Thought Process & Associations: Linear Thought Content: Appropriate, Ideas of reference Hallucination Type: None (denies) Delusion Type: Bizarre (mildly) Suicidal Ideation: No Suicidal Plan: No Suicidal Intention: No Homicidal Ideation: No Homicidal Plan: No Homicidal Intention: No Insight: Poor Judgment: Poor Results Vitals/IOs Vital Signs Date Time Temp Pulse Resp B/P (MAP) Pulse Ox O2 Delivery O2 Flow Rate FiO2 08/11/17 05:43 97.6 96 17 106/60 (75) 08/10/17 17:00 98 Assessment & Plan Problem List: (1) Other psychotic disorder not due to a substance or known physiological condition ICD Codes: F28 - Other psychotic disorder not due to a substance or known physiological condition Status: Acute Assessment & Plan Estimated LOS: days patient psychosis is slowly resolving, she showing some decrease in her paranoia and vigilance. Did complain of some dry eyes insight salivation will add liquid tears and Cogentin Justification for Cont. Inpt. At this time patient will decompensate placed in a lower level of care Discharge Planning Continue to work with family related to placement issues hopefully back with family Request HC Surrog/Guard Advoc?: No Byron Walter MD Aug 11, 2017 15:09
[2017-08-11] MEDS ORDERED: ARTIFICIAL TEARS OPTH SOLN 15 ML BTL EACH EYE PRN (15:15)
[2017-08-11] MEDS: BENZTROPINE MESYLATE 1 MG TAB PO SCH (15:15)
[2017-08-11 16:27] VITALS: BP_SYST 132; PULSE 114; RESP 18; TEMP 97.9; O2SAT 99
[2017-08-11] MEDS: ACETAMINOPHEN 325 MG TAB PO PRN (17:56)
[2017-08-12] MEDS: LEVOTHYROXINE SODIUM 100 MCG TAB PO SCH (05:40)
[2017-08-12 05:43] VITALS: BP 111/72; PULSE 100; RESP 18; TEMP 97.9; O2SAT 97
[2017-08-12] MEDS: cloZAPine 25 MG TAB PO SCH ×2 (08:35→20:40)
[2017-08-12] MEDS: clonazePAM 1 MG TAB PO SCH ×2 (08:35→20:40)
[2017-08-12] MEDS: BENZTROPINE MESYLATE 1 MG TAB PO SCH (08:35)
--- NOTE | 2017-08-12 15:53 | HHI.PYPN ---
Subjective Remarks Patient seen in day room with nurse Karely, chart reviewed patient compliant medications. Patient calm coping well with delays related to placement issues denies suicidality and voices at the present time Chief Complaint: patient increase psychotic attacking family members with pipe and other wea Review of Systems Except as stated in HPI: all other systems reviewed are Neg Mental Status Examination Appearance: Appropriate Consciousness: Alert Orientation: x4 Motor Activity: Normal gait Speech: Unremarkable Language: Adequate Fund of Knowledge: Poor Attention and Concentration: Other (fair) Mood: Other (somewhat restricted) Affect: Other (decreased range and intensity) Thought Process & Associations: Linear Thought Content: Appropriate, Ideas of reference Hallucination Type: None (denies) Delusion Type: Bizarre (mildly) Suicidal Ideation: No Suicidal Plan: No Suicidal Intention: No Homicidal Ideation: No Homicidal Plan: No Homicidal Intention: No Insight: Poor Judgment: Poor Results Vitals/IOs Vital Signs Date Time Temp Pulse Resp B/P (MAP) Pulse Ox O2 Delivery O2 Flow Rate FiO2 08/12/17 05:43 97.9 100 18 111/72 (85) 97 Assessment & Plan Problem List: (1) Other psychotic disorder not due to a substance or known physiological condition ICD Codes: F28 - Other psychotic disorder not due to a substance or known physiological condition Status: Acute Assessment & Plan Estimated LOS: days patient continue psychotic but softer, compliant medications, no behavior problems at this time. Justification for Cont. Inpt. At this time patient will decompensate the placed in a lower level of care Discharge Planning Well patient improving the still remains issues with placement and that appears to be some issues with family use cooperation with placement Request HC Surrog/Guard Advoc?: No Byron Walter MD Aug 12, 2017 15:53
[2017-08-12 17:06] VITALS: BP 130/86; PULSE 118; RESP 16; TEMP 97.6; O2SAT 97
[2017-08-12] MEDS: hydrOXYzine HCL 50 MG TAB PO PRN (20:40)
[2017-08-13 05:25] VITALS: BP 122/72; PULSE 109; RESP 18; TEMP 98.3; O2SAT 96
[2017-08-13] MEDS: LEVOTHYROXINE SODIUM 100 MCG TAB PO SCH (05:32)
[2017-08-13] MEDS: clonazePAM 1 MG TAB PO SCH ×2 (08:28→20:38)
[2017-08-13] MEDS: BENZTROPINE MESYLATE 1 MG TAB PO SCH (08:28)
[2017-08-13] MEDS: cloZAPine 25 MG TAB PO SCH ×2 (08:28→20:41)
[2017-08-13] MEDS: ACETAMINOPHEN 325 MG TAB PO PRN ×2 (10:55→17:16)
--- NOTE | 2017-08-13 12:58 | HHI.PYPN ---
Subjective Remarks Pt seen and discussed with staff. She has been compliant with medications and cooperative with care. No medicaton side effects. Less fixated on delusions.She slept well last night. Chief Complaint: patient admitted due to increase in psychosis and aggression Mental Status Examination Appearance: Appropriate Consciousness: Alert Orientation: x4 Motor Activity: Normal gait Speech: Unremarkable Language: Adequate Fund of Knowledge: Poor Attention and Concentration: Other (fair) Mood: Other (somewhat restricted) Affect: Other (decreased range and intensity) Thought Process & Associations: Linear Thought Content: Appropriate, Ideas of reference Hallucination Type: None (denies) Delusion Type: Bizarre (mildly) Suicidal Ideation: No Suicidal Plan: No Suicidal Intention: No Homicidal Ideation: No Homicidal Plan: No Homicidal Intention: No Insight: Poor Judgment: Poor Results Vitals/IOs Vital Signs Date Time Temp Pulse Resp B/P (MAP) Pulse Ox O2 Delivery O2 Flow Rate FiO2 08/13/17 05:25 98.3 109 18 122/72 (89) 96 Assessment & Plan Problem List: (1) Other psychotic disorder not due to a substance or known physiological condition ICD Codes: F28 - Other psychotic disorder not due to a substance or known physiological condition Status: Acute Assessment & Plan Continue current tx plan. Pt improving. Estimated LOS: days Justification for Cont. Inpt. risk of decompensation Request HC Surrog/Guard Advoc?: Geri Rangel MD Aug 13, 2017 12:58
[2017-08-13 17:46] VITALS: BP 144/75; PULSE 114; RESP 18; TEMP 98; O2SAT 98
[2017-08-13] MEDS: hydrOXYzine HCL 50 MG TAB PO PRN (20:39)
[2017-08-14] MEDS: LEVOTHYROXINE SODIUM 100 MCG TAB PO SCH (05:49)
[2017-08-14 06:00] VITALS: BP 106/69; PULSE 100; RESP 16; TEMP 98.1; O2SAT 97
[2017-08-14] MEDS: clonazePAM 1 MG TAB PO SCH ×2 (08:35→20:07)
[2017-08-14] MEDS: cloZAPine 25 MG TAB PO SCH ×2 (08:36→20:07)
[2017-08-14] MEDS: BENZTROPINE MESYLATE 1 MG TAB PO SCH (08:36)
[2017-08-14] MEDS: ACETAMINOPHEN 325 MG TAB PO PRN ×2 (08:42→20:07)
--- NOTE | 2017-08-14 13:12 | HHI.PYPN ---
Subjective Remarks Pt seen and discussed with staff. No behavioral problems overnight. Paranoia continues to decline. She is compliant with medications and denies side effects. No SI/HI Chief Complaint: patient admitted due to increase in psychosis and aggression Mental Status Examination Appearance: Appropriate Consciousness: Alert Orientation: x4 Motor Activity: Normal gait Speech: Unremarkable Language: Adequate Fund of Knowledge: Poor Attention and Concentration: Other (fair) Mood: Other (somewhat restricted) Affect: Other (decreased range and intensity) Thought Process & Associations: Linear Thought Content: Appropriate, Ideas of reference Hallucination Type: None (denies) Delusion Type: Bizarre (mildly) Suicidal Ideation: No Suicidal Plan: No Suicidal Intention: No Homicidal Ideation: No Homicidal Plan: No Homicidal Intention: No Insight: Poor Judgment: Poor Results Vitals/IOs Vital Signs Date Time Temp Pulse Resp B/P (MAP) Pulse Ox O2 Delivery O2 Flow Rate FiO2 08/14/17 06:00 98.1 100 16 106/69 (81) 97 Assessment & Plan Problem List: (1) Other psychotic disorder not due to a substance or known physiological condition ICD Codes: F28 - Other psychotic disorder not due to a substance or known physiological condition Status: Acute Assessment & Plan Continue current tx plan. Estimated LOS: days Justification for Cont. Inpt. risk of decompensation Request HC Surrog/Guard Advoc?: Geri Rangel MD Aug 14, 2017 13:12
[2017-08-14 16:44] VITALS: BP 153/104; PULSE 114; RESP 16; TEMP 98.2; O2SAT 97
[2017-08-15] MEDS: LEVOTHYROXINE SODIUM 100 MCG TAB PO SCH (05:28)
[2017-08-15 05:54] VITALS: BP 126/91; PULSE 94; RESP 16; TEMP 97.8; O2SAT 96
[2017-08-15] MEDS: cloZAPine 25 MG TAB PO SCH (08:53)
[2017-08-15] MEDS: BENZTROPINE MESYLATE 1 MG TAB PO SCH (08:53)
[2017-08-15] MEDS: clonazePAM 1 MG TAB PO SCH (08:53)
[2017-08-15 11:51] LABS: AUTOMATED NEUTROPHIL # 6.2 TH/MM3 (1.8-7.7); BASOPHIL % 0.1 % (0.0-2.0); EOSINOPHIL % 0.3 % (0.0-4.0); HEMATOCRIT 39.4 % (35.0-46.0); HEMO FLAGS DIFF FINAL; LYMPH % 9.7 % (9.0-44.0); LYMPHOCYTE # 0.8 TH/MM3 (1.0-4.8); MEAN CORPUSCULAR HEMOGLOBIN 31.2 PG (27.0-34.0); MEAN CORPUSCULAR HGB CONC 35.1 % (32.0-36.0); MONO % 14.5 % (0.0-8.0); NEUT % 75.4 % (16.0-70.0); PLATELET COUNT 173 TH/MM3 (150-450); RED BLOOD COUNT 4.43 MIL/MM3 (4.00-5.30); RED CELL DISTRIBUTION WIDTH 12.3 % (11.6-17.2); WHITE BLOOD COUNT 8.2 TH/MM3 (4.0-11.0)
[2017-08-15] MEDS ORDERED: CLOZ100 PO (14:48)
[2017-08-15] MEDS ORDERED: BENZ0.5T PO (14:48)
[2017-08-15] MEDS ORDERED: CLON1 PO (14:48)
[2017-08-15] MEDS ORDERED: LEVO.1 PO (14:48)
--- NOTE | 2017-08-15 14:56 | HHI.DS ---
Psychiatry Discharge Summary Inpatient Psychiatric care?: Yes Advance Directive: No Reason Not Provided: Language barrier Mental Health AdvanceDirective: No Health Care Proxy: No Admission Admission Date Jul 13, 2017 at 14:47 Admission Diagnosis: (1) Other psychotic disorder not due to a substance or known physiological condition ICD Code: F28 - Other psychotic disorder not due to a substance or known physiological condition Brief History From Dr. Stevenson's H&P: This is a 47-year-old female Steven acted by this physician for psychotic and dangerous behavior. Patient was brought in by her daughter after showing 2 weeks of decompensating behavior. Patient apparently is grabbing for weapons, including using a pipe to attack others. She yells out or screams nonsensically with no prompting. She has difficulty communicating secondary to loose associations and she is a poor historian. She is Macedonian-speaking only and unable to answer questions, primarily due to her psychosis. This is not her first such episode of psychotic thinking but the patient's daughter indicates she had an episode approximately 17 years ago after the of her son. At this point, the patient's psychotic symptoms are consistent with schizophrenia as the patient does not appear overly depressed. However, she remains paranoid, especially concerning the welfare of her son and she physically tries to prevent him from leaving the home. She bursts out phrases regarding religious, devils, etc. which are nonsensical and the patient's daughter is unable to care for her. The patient was treated at [facility] and only recently given a prescription for low to. Prior to that she was treated with antidepressant and antianxiety medicine. She does not, however, have a history of alcohol or substance abuse. Patient does appear to be responding to internal stimuli during this interview. On my examination today: Patient seen and examined with nurse. Also utilized computer-based Macedonian english language learner teacher Sandy, although patient does have some Prydeinig proficiency. Chart reviewed. I note that I saw the patient during an admission in November of this year. Case discussed with nursing staff. A [facility] apparently had to be called yesterday for what was ultimately thought to be a panic attack. At my initial eval, patient presents as fearful and anxious. She is lying in bed, panting, and casting her eyes about the room. She is unable to participate in the interview at this point. I obtained a set of vitals (P93, BP135/94, SpO2 100% on room air). I ordered patient medicated with Ativan 1mg IM once. On re- eval, patient is much calmer and conversant. She is breathing easily. She tells me that she has been dealing with a lot of stress. Patient apparently believes that there were female assassins outside her son's house with knives. She says they were threatening her. She becomes more anxious as she talks about this subject, and clearly it has a high emotional valence. She does not answer directly when asked if she feels safe in the hospital. She says that she has not been sleeping well. Denies SI/HI. She complains of some tightness in her chest when she feels particularly stressed but denies any physical symptoms now. Denies side effects from psychotropics. Interview somewhat limited, I suspect in part because of the language barrier and also because of the patient's current mental state. Tobacco Use In Past 30 Days: No Tobacco Past 30 Days Alcohol Use: Never Hospital Course Patient's course initially reflected her psychosis and paranoia. However as she became compliant with her medications and participated in the milieu the paranoia of the psychosis slowly resolved. There have been conversation with patient's family they now willing to have her come home from she is stable. They have an appointment already set up for her [facility]. Thus patient was discharged today with our exams a month we will simplify the patient 's Clozaril at the present time to 100 mg twice a day for further Clozaril titration to be at the discretion of the outpatient psychiatrist Results Blood Pressure 126 / 91 Vital Signs Date Time Temp Pulse Resp B/P (MAP) Pulse Ox O2 Delivery O2 Flow Rate FiO2 08/15/17 05:54 97.8 94 16 126/91 (103) 96 Laboratory Tests Test 08/15/17 10:40 Neutrophils (%) (Auto) 75.4 % (16.0-70.0) Monocytes (%) (Auto) 14.5 % (0.0-8.0) Lymphocytes # (Auto) 0.8 TH/MM3 (1.0-4.8) Monocytes # (Auto) 1.2 TH/MM3 (0-0.9) Laboratory Results Test 07/14/17 09:49 Cholesterol Level 226 MG/DL (120-200) HDL Cholesterol 101.1 MG/DL (40.0-60.0) Hemoglobin A1c 5.5 % (4.3-6.0) LDL Cholesterol 109 MG/DL (0-99) Triglycerides Level 80 MG/DL (42-150) Summary of Procedures None done Pending results at discharge: No Medications # of Antipsychotic meds at D/C: 1 Approp Antipsych med options 1 - Minimum of three failed multiple trials of monotherapy. 2 - Documented plan to taper to monotherapy due to previous use of multiple meds OR cross-taper in progress at D/C. 3 - Documentation of augmentation of Clozapine. 4 - Justification other than those listed in allowable values 1-3, document here : Discharge Discharge Date: Aug 15, 2017 Discharge Diagnosis: (1) Other psychotic disorder not due to a substance or known physiological condition Diagnosis: Principal ICD Code: F28 - Other psychotic disorder not due to a substance or known physiological condition Status: Acute Pt Condition on Discharge: Stable Discharge Disposition: Discharge Home Discharge Instructions Diet Instructions: As Tolerated, No Restrictions Activities you can perform: Regular-No Restrictions Scheduled Appointment: [facility] Appointment Date: Aug 23, 2017 Appointment Time: 9:45 am Discharge Time > 30 minutes Mental Status Examination Appearance: Appropriate Consciousness: Alert Orientation: x4 Motor Activity: Normal gait Speech: Unremarkable Language: Adequate Fund of Knowledge: Poor Attention and Concentration: Other (fair) Mood: Other (somewhat restricted) Affect: Other (decreased range and intensity) Thought Process & Associations: Linear Thought Content: Appropriate, Ideas of reference Hallucination Type: None (denies) Delusion Type: Bizarre (mildly) Suicidal Ideation: No Suicidal Plan: No Suicidal Intention: No Homicidal Ideation: No Homicidal Plan: No Homicidal Intention: No Insight: Poor Judgment: Poor Discharge/Advance Care Plan Health Problems: (1) Other psychotic disorder not due to a substance or known physiological condition Goals to promote your health * To prevent worsening of your condition and complications * To maintain your health at the optimal level Directions to meet your goals Take your medications as prescribed Follow your dietary instruction Follow activity as directed Keep your appointments as scheduled Take your immunizations and boosters as scheduled If your symptoms worsen call your PCP, if no PCP go to Urgent Care Center or Emergency Room For 30/05 questions related to your inpatient stay or results of tests pending at discharge, please contact Dr. Byron Walter at Smoking is Dangerous to Your Health. Avoid second hand smoking Byron Walter MD Aug 15, 2017 14:56
== END 2017-08-15 16:50 | disposition home or self-care (01) | DRG 885 ==
LOC: NEPC 08:13 → NEDA 14:47 → H260 15:08 → H270 08-05 19:44
PROVIDERS: ADMIT Psychiatry & Neurology Psychiatry; ATTEND Psychiatry & Neurology Psychiatry
DX: F28 Other psychotic disorder not due to a substance or known physiological condition (principal); I10 Essential (primary) hypertension; E03.9 Hypothyroidism, unspecified; E87.6 Hypokalemia
CPT/HCPCS: 80048; 80053; 80061; 80307; 82306; 82607; 83036; 83735; 84443; 84703; 85025; 93005; 95819; J2060

== ENCOUNTER 2018-06-30 20:27 | Inpatient (IN) ==
[2018-06-30] MEDS ORDERED: Gadobutrol PF 10 MMOL/10 ML Vial (for RAD) IV.SIG ONE ×2 (20:28→22:00)
[2018-06-30] MEDS ORDERED: Sod Chloride 0.9% Inj 1,000 ML IV.SIG ONE (20:53)
[2018-06-30] MEDS ORDERED: LORazepam 1 MG Tablet PO ONE (20:53)
--- NOTE | 2018-06-30 21:06 | ED ---
HPI General Chief Complaint: Seizure Stated Complaint: poss seizure Time Seen by Provider: 06/30/18 20:41 Source: patient, EMS, RN notes reviewed and old records reviewed Mode of arrival: EMS Limitations: no limitations History of Present Illness HPI Narrative: 48 year old female presents to the emergency department via EMS for evaluation after she apparently had a seizure. According to EMS, the patient has a history of seizure, but I don't see any prior visit for seizures. The patient has a history of schizophrenia and is a poor historian. She is alert and oriented to person, place, and time. She denies any complaints at this time. According to EMS, she was found postictal by family. No tongue biting or incontinence. Moderate severity. When family arrived, they gave further information. He states that this has happened before and usually happens approximately once a year when she decompensates psychiatrically. He states that she has been obsessing more about her son, and they are concerned she will wander off. She states the last time this happened she went to [facility]. It does not sound like she had a seizure, but more of a panic attack. MD complaint: seizure Witnessed: no Trauma: No Seizure History: known seizure disorder Possible Precipitating Event: none Associated symptoms: denies other symptoms Related Data Home Medications Medication Instructions Recorded Confirmed benztropine 2 mg PO BID 06/30/18 06/30/18 clozapine [Clozaril] 25 mg PO DAILY 06/30/18 06/30/18 levothyroxine 88 mcg PO DAILY 06/30/18 06/30/18 propranolol 10 mg PO BID 06/30/18 06/30/18 quetiapine 25 mg PO DAILY 06/30/18 06/30/18 Allergies Allergy/AdvReac Type Severity Reaction Status Date / Time No Known Allergies Allergy Uncoded 07/13/17 10:32 Review of Systems ROS: all other systems reviewed are negative PMFSH Medical History Medical History Hypertension (Acute) Seizure (Acute) Social History Social History Second Hand Smoke Exposure: No Smoking Status: Never smoker How Often Do You Have a Drink Containing Alcohol: Never Recent Travel in [facility] within the Last 8 Weeks: No Recent Out of Country Travel within the Last 8 Weeks: No Exam Narrative Exam Narrative: GENERAL: Well-nourished, well-developed female patient, afebrile. Patient is alert and oriented to person, place, and time SKIN: Focused skin assessment warm/dry. No lacerations or abrasions HEAD: Normocephalic. Atraumatic EYES: No scleral icterus. No injection or drainage. ENT: Mucosa pink and moist. No erythema or exudates. No uvular edema. No uvular , palatal, or tonsillar deviation. Airway patent. Nasal turbinates appear normal without nasal blood, purulent drainage or septal hematoma. Bilateral tympanic membranes clear without erythema or perforation. NECK: Supple, trachea midline. No JVD or lymphadenopathy. CARDIOVASCULAR: Regular rate and rhythm without murmurs, gallops, or rubs. Bilateral radial and pedal pulses 2+ RESPIRATORY: Breath sounds equal bilaterally. No accessory muscle use. Lung sounds are clear to auscultation throughout GASTROINTESTINAL: Abdomen soft, non-tender, nondistended. MUSCULOSKELETAL: No cyanosis, or edema. Bilateral upper and lower extremity strength 5/5 BACK: Nontender without obvious deformity. No CVA tenderness. Course Initial Documented Vital Signs Temperature 98.7 F 06/30/18 20:46 Pulse Rate 105 H 06/30/18 20:46 Respiratory Rate 16 06/30/18 20:46 Blood Pressure 148/99 H 06/30/18 20:46 Pulse Oximetry 100 06/30/18 20:46 Last Documented Vital Signs Temperature 98.7 F 06/30/18 20:46 Pulse Rate 94 H 06/30/18 20:52 Respiratory Rate 16 06/30/18 20:52 Blood Pressure 127/67 06/30/18 20:52 Pulse Oximetry 98 06/30/18 21:31 Medical Decision Making ANTHONY Attestation ANTHONY supervised visit: Yes Attestation: I, Dr. Morley, have reviewed the advance practice practitioner's documentation and am in agreement, met with the patient face to face, made the diagnosis, and the medical decision making was done by me. *My assessment and Findings: The patient's 48 years old. She is a history of schizophrenia and hypothyroidism. Family notes that the patient has become much more difficult to manage psychiatrically due to agitation and catatonia. Patient was started on benztropine and Seroquel today. Afterwards the patient was found in her room unresponsive. No oropharyngeal trauma/or bleeding. No fecal or urinary incontinence. Patient has no history of epilepsy. The patient was brought here due to the concern for seizure and increased agitation. 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 Admission for evaluation by neurology and psychiatry as deemed appropriate by hospitalist service. Discussed with Dr. Carlin. Patient may or may not have had a seizure however if there was one the etiology was unclear in the setting of new med investigated further. Markedly elevated TSH is also noted. The family noticed her compliance with levothyroxine. MDM Narrative Medical decision making narrative: 48 year old female presents to the emergency department for evaluation after she apparently had a seizure/panic attack. Family states that this occurs when she decompensates with her schizophrenia and are requesting psychiatric evaluation. Family describes a panic attack and states that last time she went to [facility] for her schizophrenia. Family states she is decompensating psychiatrically. EKG shows sinus tachycardia, HR 106, no acute ST changes. CBC, CMP, Magnesium, UA, UPT are ordered and pending. CT of the brain is ordered and pending. Patient is given NS 1 L IV bolus, Ativan 1 mg PO. CBC shows no acute abnormalities. CMP shows no acute abnormality. Magnesium is 1.7. TSH is 12.200. UA, UPT are pending. CT of the brain shows Bilateral thalamic hypodensities and diffuse areas of decreased attenuation in the supratentorial white matter. It would be unusual for a patient of 48 years old to have diffuse ischemic change and lacunar infarcts; therefore, recommend performing MRI brain with and without contrast for further characterization. MRI of the brain w/wo contrast is ordered and pending. MRI of the brain w/wo contrast is pending. My attending physician, Dr. Morley will resume care and disposition of patient. Medical Screen Exam Complete: Yes Emergency Medical Condition: Yes Differential Diagnosis Differential Diagnosis: breakthrough seizure vs. new onset seizure vs. electrolyte abnormality vs. intracranial abnormality Medical Records Medical records reviewed: Yes I reviewed the patient's medical records. Lab Data Result diagrams: 06/30/18 21:30 06/30/18 21:30 Lab Results 06/30/18 06/30/18 06/30/18 Range/Units 21:30 21:30 21:30 WBC 7.3 (4.0-11.0) th/mm3 RBC 4.45 (4.00-5.30) mil/mm3 Hgb 13.5 (11.6-15.3) gm/dL Hct 39.1 (35.0-46.0) % MCV 87.8 (80.0-100.0) fL MCH 30.3 (27.0-34.0) pg MCHC 34.5 (32.0-36.0) % RDW 13.3 (11.6-17.2) % Plt Count 195 (150-450) th/mm3 MPV 7.9 (7.0-11.0) fL Neut % (Auto) 64.8 (16.0-70.0) % Lymph % (Auto) 21.8 (9.0-44.0) % [place] % (Auto) 13.1 H (0.0-8.0) % Eos % (Auto) 0.0 (0.0-4.0) % Baso % (Auto) 0.3 (0.0-2.0) % Neut # (Auto) 4.7 (1.8-7.7) th/mm3 Lymph # (Auto) 1.6 (1.0-4.8) th/mm3 [place] # (Auto) 1.0 H (0.0-0.9) th/mm3 Eos # (Auto) 0.0 (0.0-0.4) th/mm3 Baso # (Auto) 0.0 (0.0-0.2) th/mm3 WBC Differential . Differential Comment Auto diff final Sodium 139 (136-145) meq/L Potassium 4.0 (3.5-5.1) meq/L Chloride 106 (98-107) meq/L Carbon Dioxide 22.1 (21.0-32.0) meq/L Anion Gap 11 (5-15) meq/L BUN 11 (7-18) mg/dL Creatinine 0.77 (0.50-1.00) mg/dL Estimated GFR 80 L (>89) mL/min Random Glucose 103 (74-106) mg/dL Calcium 8.6 (8.5-10.1) mg/dL Magnesium 1.7 (1.5-2.5) mg/dL Total Bilirubin 0.7 (0.2-1.0) mg/dL AST 26 (15-37) U/L ALT 28 (10-53) U/L Alkaline Phosphatase 102 (45-117) U/L Total Protein 7.4 (6.4-8.2) g/dL Albumin 3.7 (3.4-5.0) g/dL TSH 12.200 H (0.358-3.740) uIU/mL Imaging Data Radiologist's impression: Head CT 06/30/18 20:53 CONCLUSION: 1. Bilateral thalamic hypodensities and diffuse areas of decreased attenuation in the supratentorial white matter. It would be unusual for a patient of 48 years old to have diffuse ischemic change and lacunar infarcts; therefore, recommend performing MRI brain with and without contrast for further characterization. . Head MRI 06/30/18 22:02 CONCLUSION: 1. 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 Unusual in a 48-year-old. This may be associated with the patient's reported history of long-standing hypertension. 2. Nothing acute. Discharge Plan Discharge Disposition Patient Disposition: 30 Still Patient Physicians Team ED Provider: Doug Morley ED Midlevel Provider: Donna Robles Primary Care Provider: UNKNOWN, Attending Provider: Gisel Carlin Discharge Interventions Interventions: Vital Signs Last Done: 06/30/18 20:52 Status ED Status: Admitted Observation Patient
[2018-06-30 21:47] LABS: Baso % (Auto) 0.3 % (0.0-2.0); Hematocrit 39.1 % (35.0-46.0); Hemoglobin 13.5 gm/dL (11.6-15.3); Lymph # (Auto) 1.6 th/mm3 (1.0-4.8); Lymph % (Auto) 21.8 % (9.0-44.0); Mean Corpuscular HGB Conc 34.5 % (32.0-36.0); Mean Corpuscular Hemoglobin 30.3 pg (27.0-34.0); Mean Corpuscular Volume 87.8 fL (80.0-100.0); Mean Platelet Volume 7.9 fL (7.0-11.0); Mono % (Auto) 13.1 % (0.0-8.0); Neut # (Auto) 4.7 th/mm3 (1.8-7.7); Neut % (Auto) 64.8 % (16.0-70.0); Platelet Count 195 th/mm3 (150-450); Red Blood Count 4.45 mil/mm3 (4.00-5.30); Red Cell Distribution Width 13.3 % (11.6-17.2); White Blood Count 7.3 th/mm3 (4.0-11.0)
--- NOTE | 2018-06-30 21:54 | CT ---
EXAM DATE: 06/30/2018 9:49 PM EDT AGE/SEX: 48 years / Female INDICATIONS: Possible seizure. CLINICAL DATA: This is the patient's initial encounter. Patient reports that signs and symptoms have been present for 1 day and indicates a pain score of 0/10. MEDICAL/SURGICAL HISTORY: Hypertension. Seizures. None. RADIATION DOSE: 56.35 CTDI (mGy) COMPARISON: No prior exams available for comparison. TECHNIQUE: CT of the head without contrast. Using automated exposure control and adjustment of the mA and/or kV according to patient size, radiation dose was kept as low as reasonably achievable to ob tain optimal diagnostic quality images. DICOM format image data is available electronically for revi ew and comparison. FINDINGS: Cerebrum: The ventricles are normal for age. There are 5 mm areas of hypodensity are present in the medial thalamus bilaterally. There is decreased attenuation scattered in the supratentorial brain sug gesting either edema or ischemic demyelination. No evidence of midline shift, mass lesion, hemorrhage or acute infarction. No extraaxial fluid collections are seen. Posterior Fossa: The cerebellum and brainstem are intact. The 4th ventricle is midline. The cerebe llopontine angle is unremarkable. Extracranial: The visualized portion of the orbits is intact. Skull: The calvaria is intact. No evidence of skull fracture. CONCLUSION: 1. Bilateral thalamic hypodensities and diffuse areas of decreased attenuation in the supratentorial white matter. It would be unusual for a patient of 48 years old to have diffuse ischemic change and lacunar infarcts; therefore, recommend performing MRI brain with and without contrast for further anmol racterization. . Electronically signed by: Benedict Hernández MD 06/30/2018 9:53 PM EDT
[2018-06-30 22:09] LABS: Albumin 3.7 g/dL (3.4-5.0); Anion Gap 11 meq/L (5-15); Aspartate Aminotransferase 26 U/L (15-37); Blood Urea Nitrogen 11 mg/dL (7-18); Calcium 8.6 mg/dL (8.5-10.1); Carbon Dioxide 22.1 meq/L (21.0-32.0); Chloride 106 meq/L (98-107); Glomerular Filtration Rate 80 mL/min (>89); Glucose,Random 103 mg/dL (74-106); Magnesium 1.7 mg/dL (1.5-2.5); Sodium 139 meq/L (136-145)
[2018-06-30 22:10] LABS: Alanine Aminotransferase 28 U/L (10-53)
[2018-06-30 22:12] LABS: Alkaline Phosphatase 102 U/L (45-117); Total Protein 7.4 g/dL (6.4-8.2)
--- NOTE | 2018-06-30 23:26 | MR ---
EXAM DATE: 06/30/2018 11:08 PM EDT AGE/SEX: 48 years / Female INDICATIONS: Seizures. Abnormal CT scan. CLINICAL DATA: This is the patient's initial encounter. Patient reports that signs and symptoms have been present for 1 day and indicates a pain score of 0/10. MEDICAL/SURGICAL HISTORY: Hypertension. Schizophrenia. None. COMPARISON: [facility] [place], CT HEAD W/O CONTRAST, 06/30/2018. . TECHNIQUE: Multiplanar, multisequence examination of the brain was performed without and with 9 ml Ga davist (gadobutrol) contrast as a single exam dose. FINDINGS: Cerebrum: The ventricles are normal for age. No evidence of midline shift, mass lesion, hemorrhage or acute infarction. However, MR does confirm bilateral old lacunar type thalamic infarcts as well a s old punctate infarcts in the ellington radiata bilaterally. There is some associated hemosiderin depos ition within the thalami on the susceptibility weighted images, right greater than left. No extraaxia l fluid collections are seen. The pituitary gland and suprasellar cistern are normal in configuratio n. White Matter: Moderately severe periventricular small vessel ischemic demyelination. Posterior Fossa: The cerebellum and brainstem are intact. The 4th ventricle is midline. The cerebel lopontine angle is unremarkable. The cerebellar tonsils are normal in position. Diffusion Imaging: No focal areas of restricted diffusion are seen. No evidence of acute infarction . Extracranial: The visualized portions of the orbits and paranasal sinuses are unremarkable. Post Contrast: No abnormal areas of parenchymal or dural enhancement. No evidence of blood-brain ba rrier breakdown. CONCLUSION: 1. MRI confirms chronic changes of moderately severe periventricular small vessel ischemic demyelina tion and old bilateral lacunar type infarcts, most prominent in the thalami. Unusual in a 48-year-old . This may be associated with the patient's reported history of long-standing hypertension. 2. Nothing acute. Electronically signed by: Nas Figueroa MD 06/30/2018 11:24 PM EDT
[2018-07-01] MEDS: Levothyroxine 88 MCG Tablet PO SCH (05:06)
[2018-07-01] MEDS: Sod Chloride 0.9% Inj 1,000 ML IV.CONT SCH ×2 (05:06→17:06)
[2018-07-01 05:19] LABS: Bilirubin,Urine Negative (Negative); Clarity,Urine Hazy (Clear); Color,Urine Yellow (Yellw/Straw); Glucose,Urine (UA) Negative (Negative); Leukocyte Esterase,Urine Negative (Negative); Mucus,Urine Few /lpf (Occasional); Nitrite,Urine Negative (Negative); Squamous Epithelial Cell,Urine 1 /hpf (0-5)
--- NOTE | 2018-07-01 06:21 | P.HP ---
History of Present Illness Service: [facility] Primary Care Physician: UNKNOWN History of Present Illness: 48-year-old female with a past medical history significant for schizophrenia, anxiety, hypertension and hypothyroidism presents to the emergency department for the evaluation of possible seizure. Time of our interview, the patient is only minimally responsive. She will open her eyes to voice but does not answer questions. Per ED records, the patient may have a prior history of seizure disorder however this has not been confirmed with records review. The patient was apparently found postictal by her family. No bowel/bladder incontinence. No head trauma or tongue lacerations. Inpatient Certification: I certify that the inpatient services were ordered in accordance with Medicare regulations governing the order. This includes certification that hospital inpatient services are reasonable and necessary and in the case of services not specified as inpatient-only under 42 CFR 419.22(n), that they are appropriately provided as inpatient services in accordance to with the 2-midnight benchmark under 43 CFR 412.3(e) Estimated Total Length of Stay (Days): 2 Plans for Post Hospital Care: Not yet determined Review of Systems unobtainable due to mental condition PMFSH - History History Provided By: Patient - Medical History Medical History: Medical History (Last Reviewed 07/01/18 @ 05:04 by Camryn Godwin RN) Anxiety Hypertension Hypothyroid Schizophrenia Seizure - Surgical History Surgical History: Surgical History (Last Reviewed 07/01/18 @ 05:04 by Camryn Godwin RN) No history of previous surgery - Family History Family History: Family History (Last Updated 07/01/18 @ 06:14 by Gisel Carlin MD) Other Family history unknown - Tobacco History Second Hand Smoke Exposure: No Tobacco Use In Past 30 Days: No Smoking Status: Never smoker - Alcohol History How Often Do You Have a Drink Containing Alcohol: Never - Substance Use History Substance History: No History of Abuse - Travel History Recent Travel in the [place] Within the Last 8 Weeks: No Recent Travel Out of the Country Within the Last 8 Weeks: No - Immunization History Tetanus Immunization: Unsure Hx Influenza Vaccine This Season: No Medications and Allergies Active Medications: Active Medications Acetaminophen (Tylenol) 650 mg PO Q4H PRN PRN Reason: PAIN SCALE 1 TO 10 Benztropine Mesylate (Cogentin) 2 mg PO BID [facility] Clozapine (Clozaril) 25 mg PO DAILY [facility] Sodium Chloride (Ns Inj) 1,000 mls @ 75 mls/hr IV.CONT .[id number] [facility] Last Admin: 07/01/18 05:06 Dose: 75 mls/hr Levothyroxine Sodium (Synthroid) 88 mcg PO DAILY@0600 [facility] Last Admin: 07/01/18 05:06 Dose: 88 mcg Lorazepam (Ativan Inj) 2 mg IV.PUSH Q10M PRN PRN Reason: SEE LABEL COMMENTS Propranolol HCl (Inderal) 10 mg PO BID [facility] Quetiapine Fumarate (Seroquel) 25 mg PO DAILY [facility] Sodium Chloride (Ns Flush) 2 ml IV.FLUSH BID [facility] Sodium Chloride (Ns Flush) 2 ml IV.FLUSH PRN PRN PRN Reason: FLUSH AFTER USING IV ACCESS Allergies Allergy/AdvReac Type Severity Reaction Status Date / Time No Known Allergies Allergy Verified 07/01/18 05:05 Home Medications Medication Instructions Recorded Confirmed Type benztropine 2 mg PO BID 06/30/18 06/30/18 History clozapine [Clozaril] 25 mg PO DAILY 06/30/18 06/30/18 History levothyroxine 88 mcg PO DAILY 06/30/18 06/30/18 History propranolol 10 mg PO BID 06/30/18 06/30/18 History quetiapine 25 mg PO DAILY 06/30/18 06/30/18 History Exam Vital signs: Vital Signs 06/30/18 20:46 06/30/18 20:52 06/30/18 21:31 Temperature 98.7 F Pulse Rate 105 H 94 H Respiratory Rate 16 16 Blood Pressure 148/99 H 127/67 Pulse Oximetry 100 98 97 07/01/18 03:23 07/01/18 04:20 Temperature 97.9 F Pulse Rate 90 97 H Respiratory Rate 16 18 Blood Pressure 145/78 H 124/75 Pulse Oximetry 96 97 Intake & Output 06/30/18 06/30/18 07/01/18 06:59 18:59 06:59 Weight 74.84 kg Other: Weight On Admission 74.84 kg Narrative: Gen.: No acute distress Head: Normocephalic. Atraumatic. EENT: Pupils equal round and reactive to light. Nose without drainage. Airway intact. Cardiovascular: Regular rate and rhythm. No murmurs, rubs or gallops. Respiratory: Lungs clear to auscultation bilaterally. No wheezes or rhonchi. Abdomen: Soft, nontender, nondistended. No peritoneal signs. Musculoskeletal: No gross deformities. No edema. Skin: No obvious rashes or erythema. Neuro: Moves all 4 extremities spontaneously. Arouses to voice. Results - Labs CBC & Chem 7: 06/30/18 21:30 06/30/18 21:30 Labs: Laboratory Results - last 24 hr 06/30/18 06/30/18 06/30/18 21:30 21:30 21:30 WBC 7.3 RBC 4.45 Hgb 13.5 Hct 39.1 MCV 87.8 MCH 30.3 MCHC 34.5 RDW 13.3 Plt Count 195 MPV 7.9 Neut % (Auto) 64.8 Lymph % (Auto) 21.8 [place] % (Auto) 13.1 H Eos % (Auto) 0.0 Baso % (Auto) 0.3 Neut # (Auto) 4.7 Lymph # (Auto) 1.6 [place] # (Auto) 1.0 H Eos # (Auto) 0.0 Baso # (Auto) 0.0 WBC Differential . Differential Comment Auto diff final Sodium 139 Potassium 4.0 Chloride 106 Carbon Dioxide 22.1 Anion Gap 11 BUN 11 Creatinine 0.77 Estimated GFR 80 L Random Glucose 103 Calcium 8.6 Magnesium 1.7 Total Bilirubin 0.7 AST 26 ALT 28 Alkaline Phosphatase 102 Total Protein 7.4 Albumin 3.7 TSH 12.200 H Urine Color Urine Clarity Urine pH Ur Specific [place] Urine Protein Urine Glucose (UA) Urine Ketones Urine Occult Blood Urine Nitrate Urine Bilirubin Urine Urobilinogen Ur Leukocyte Esterase Urine RBC Urine WBC Ur Squamous Epith Cells Urine Mucus Micro UA Comment Ur Microscopic Review Urine Culture Comments 07/01/18 04:50 WBC RBC Hgb Hct MCV MCH MCHC RDW Plt Count MPV Neut % (Auto) Lymph % (Auto) [place] % (Auto) Eos % (Auto) Baso % (Auto) Neut # (Auto) Lymph # (Auto) [place] # (Auto) Eos # (Auto) Baso # (Auto) WBC Differential Differential Comment Sodium Potassium Chloride Carbon Dioxide Anion Gap BUN Creatinine Estimated GFR Random Glucose Calcium Magnesium Total Bilirubin AST ALT Alkaline Phosphatase Total Protein Albumin TSH Urine Color Yellow Urine Clarity Hazy H Urine pH 5.0 Ur Specific [place] 1.010 Urine Protein Negative Urine Glucose (UA) Negative Urine Ketones Negative Urine Occult Blood Small H Urine Nitrate Negative Urine Bilirubin Negative Urine Urobilinogen Less than 2 Ur Leukocyte Esterase Negative Urine RBC 2 Urine WBC 2 Ur Squamous Epith Cells 1 Urine Mucus Few H Micro UA Comment Culture not ind Ur Microscopic Review Not Reportable Urine Culture Comments Culture not ind - Imaging Impressions Head CT 06/30/18 20:53 CONCLUSION: 1. Bilateral thalamic hypodensities and diffuse areas of decreased attenuation in the supratentorial white matter. It would be unusual for a patient of 48 years old to have diffuse ischemic change and lacunar infarcts; therefore, recommend performing MRI brain with and without contrast for further characterization. . Head MRI 06/30/18 22:02 CONCLUSION: 1. 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 Unusual in a 48-year-old. This may be associated with the patient's reported history of long-standing hypertension. 2. Nothing acute. Caprini VTE Risk Assessment Caprini VTE Risk Assessment: No/Low Risk (score <= 1) Caprini Risk Assessment Model: Point Value = 1 Point Value = 2 Point Value = 3 Point Value = 5 Age 41-60 Minor surgery BMI > 25 kg/m2 Swollen legs Varicose veins or History of unexplained or recurrent spontaneous Oral contraceptives or hormone replacement Sepsis (< 1 month) Serious lung disease, including pneumonia (< 1 month) Abnormal pulmonary function Acute myocardial infarction Congestive heart failure (< 1 month) History of inflammatory bowel disease Medical patient at bed rest Age 61-74 Arthroscopic surgery Major open surgery (> 45 min) Laparoscopic surgery (> 45 min) Malignancy Confined to bed (> 72 hours) Immobilizing plaster cast Central venous access Age >= 75 History of VTE Family history of VTE Factor V Leiden Prothrombin [id number] Lupus anticoagulant Anticardiolipin antibodies Elevated serum homocysteine Heparin-induced thrombocytopenia Other congenital or acquired thrombophilia Stroke (< 1 month) Elective arthroplasty Hip, pelvis, or leg fracture Acute spinal cord injury (< 1 month) Prophylaxis Regimen: Total Risk Factor Score Risk Level Prophylaxis Regimen 0-1 Low Early ambulation 2 Moderate Order ONE of the following: *Sequential Compression Device (SCD) *Heparin 5000 units SQ BID 3-4 Higher Order ONE of the following medications: *Heparin 5000 units SQ TID *Enoxaparin/Lovenox 40 mg SQ daily (WT < 150 kg, CrCl > 30 mL/min) *Enoxaparin/Lovenox 30 mg SQ daily (WT < 150 kg, CrCl > 10-29 mL/min) *Enoxaparin/Lovenox 30 mg SQ BID (WT < 150 kg, CrCl > 30 mL/min) AND/OR *Sequential Compression Device (SCD) 5 or more Highest Order ONE of the following medications: *Heparin 5000 units SQ TID (Preferred with Epidurals) *Enoxaparin/Lovenox 40 mg SQ daily (WT < 150 kg, CrCl > 30 mL/min) *Enoxaparin/Lovenox 30 mg SQ daily (WT < 150 kg, CrCl > 10-29 mL/min) *Enoxaparin/Lovenox 30 mg SQ BID (WT < 150 kg, CrCl > 30 mL/min) AND *Sequential Compression Device (SCD) Assessment and Plan - Plan Assessment/plan: 1. Possible seizure Unclear whether patient has history of seizure disorder Patient was found in possible postictal state, unwitnessed preceding events EEG pending Neurology consulted, appreciate recommendations No seizure medications on patient's medication reconciliation list Confirm once patient arousable Seizure precautions Ativan as needed 2. Schizophrenia Continue home medications 3. Hypothyroidism TSH 12.2 T3, T4 pending Continue home Synthroid -unclear if patient compliant with medication FEN Regular diet Electrolytes: Monitor and replete as needed NS at 75 cc/hour
[2018-07-01] MEDS: Benztropine 2 MG Tablet PO SCH ×2 (09:08→21:04)
[2018-07-01] MEDS: Propranolol 10 MG Tablet PO SCH ×2 (09:08→21:04)
[2018-07-01] MEDS: QUEtiapine 25 MG Tablet PO SCH (09:08)
--- NOTE | 2018-07-01 10:17 | P.CONNEU ---
History of Present Illness Service: Neurology Primary Care Provider: UNKNOWN Chief Complaint: Possible seizure, TIA History of Present Illness: 48-year-old female brought in for possible seizure. History quite limited from patient no family bedside nobody to obtain. She is not quite sure why she is at the hospital. She is unable to give me the names of her medications. Or the name of her physician. There is underlying history of schizophrenia. Had a EEG done in the past 2017 which was negative for seizure. She was followed by psychiatry at that time. MRI brain scan demonstrated moderate white matter changes however no acute lesion. Denies any history of stroke denies taking aspirin. Patient apparently is on Clozaril, Seroquel. Review of Systems All other systems reviewed negative except as stated in HPI [facility] - History History Provided By: Patient - Medical History Medical History: Medical History (Last Reviewed 07/01/18 @ 05:04 by Camryn Godwin RN) Anxiety Hypertension Hypothyroid Schizophrenia Seizure - Surgical History Surgical History: Surgical History (Last Reviewed 07/01/18 @ 05:04 by Camryn Godwin RN) No history of previous surgery - Family History Family History: Family History (Last Updated 07/01/18 @ 06:14 by Gisel Carlin MD) Other Family history unknown - Tobacco History Second Hand Smoke Exposure: No Tobacco Use In Past 30 Days: No Smoking Status: Never smoker - Alcohol History How Often Do You Have a Drink Containing Alcohol: Never - Substance Use History Substance History: No History of Abuse - Travel History Recent Travel in the [place] Within the Last 8 Weeks: No Recent Travel Out of the Country Within the Last 8 Weeks: No - Immunization History Tetanus Immunization: Unsure Hx Influenza Vaccine This Season: No Medications and Allergies Active Medications: Active Medications Acetaminophen (Tylenol) 650 mg PO Q4H PRN PRN Reason: PAIN SCALE 1 TO 10 Benztropine Mesylate (Cogentin) 2 mg PO BID [facility] Last Admin: 07/01/18 09:08 Dose: 2 mg Clozapine (Clozaril) 25 mg PO DAILY [facility] Last Admin: 07/01/18 09:08 Dose: 25 mg Sodium Chloride (Ns Inj) 1,000 mls @ 75 mls/hr IV.CONT .[id number] [facility] Last Admin: 07/01/18 05:06 Dose: 75 mls/hr Levothyroxine Sodium (Synthroid) 88 mcg PO DAILY@0600 [facility] Last Admin: 07/01/18 05:06 Dose: 88 mcg Lorazepam (Ativan Inj) 2 mg IV.PUSH Q10M PRN PRN Reason: SEE LABEL COMMENTS Propranolol HCl (Inderal) 10 mg PO BID [facility] Last Admin: 07/01/18 09:08 Dose: 10 mg Quetiapine Fumarate (Seroquel) 25 mg PO DAILY [facility] Last Admin: 07/01/18 09:08 Dose: 25 mg Sodium Chloride (Ns Flush) 2 ml IV.FLUSH BID [facility] Last Admin: 07/01/18 09:08 Dose: Not Given Sodium Chloride (Ns Flush) 2 ml IV.FLUSH PRN PRN PRN Reason: FLUSH AFTER USING IV ACCESS Allergies Allergy/AdvReac Type Severity Reaction Status Date / Time No Known Allergies Allergy Verified 07/01/18 05:05 Home Medications Medication Instructions Recorded Confirmed Type benztropine 2 mg PO BID 06/30/18 06/30/18 History clozapine [Clozaril] 25 mg PO DAILY 06/30/18 06/30/18 History levothyroxine 88 mcg PO DAILY 06/30/18 06/30/18 History propranolol 10 mg PO BID 06/30/18 06/30/18 History quetiapine 25 mg PO DAILY 06/30/18 06/30/18 History Exam Vital signs: Vital Signs 06/30/18 20:46 06/30/18 20:52 06/30/18 21:31 Temperature 98.7 F Pulse Rate 105 H 94 H Respiratory Rate 16 16 Blood Pressure 148/99 H 127/67 Pulse Oximetry 100 98 97 07/01/18 03:23 07/01/18 04:20 07/01/18 05:48 Temperature 97.9 F Pulse Rate 90 97 H 94 H Respiratory Rate 16 18 Blood Pressure 145/78 H 124/75 Pulse Oximetry 96 97 07/01/18 08:00 07/01/18 09:05 Temperature 97.9 F Pulse Rate 112 H Respiratory Rate 16 Blood Pressure 163/98 H Pulse Oximetry 99 99 Intake & Output 06/30/18 07/01/18 07/01/18 18:59 06:59 18:59 Weight 45.3 kg Other: # Voids 2 Date of Last Bowel Movement 06/30/18 06/30/18 Weight On Admission 74.84 kg Narrative: Gen.: No acute distress Head: Normocephalic. Atraumatic. EENT: Pupils equal round and reactive to light. Nose without drainage. Cardiovascular: Regular rate and rhythm. No murmurs, rubs or gallops. Respiratory: Lungs clear to auscultation bilaterally. Abdomen: Soft, nontender, nondistended. Musculoskeletal: Right BKA. Neuro: Awake alert oriented 2. Not to date [place] accent which is her main language but is able to converse somewhat in [place]ian. Able to follow motor requests. No involuntary movements exact movements intact visual jones full no facial asymmetry no pronator drift strength 5 out of 5 upper lower limbs. Psychiatry: Some thought disorder tangential in conversation - Constitutional no acute distress - Routine HEENT Exam Head: Present: normocephalic Eye: Present: EOMI Results - Labs CBC & Chem 7: 06/30/18 21:30 06/30/18 21:30 Labs: Laboratory Results - last 24 hr 06/30/18 06/30/18 06/30/18 21:30 21:30 21:30 WBC 7.3 RBC 4.45 Hgb 13.5 Hct 39.1 MCV 87.8 MCH 30.3 MCHC 34.5 RDW 13.3 Plt Count 195 MPV 7.9 Neut % (Auto) 64.8 Lymph % (Auto) 21.8 [place] % (Auto) 13.1 H Eos % (Auto) 0.0 Baso % (Auto) 0.3 Neut # (Auto) 4.7 Lymph # (Auto) 1.6 [place] # (Auto) 1.0 H Eos # (Auto) 0.0 Baso # (Auto) 0.0 WBC Differential . Differential Comment Auto diff final Sodium 139 Potassium 4.0 Chloride 106 Carbon Dioxide 22.1 Anion Gap 11 BUN 11 Creatinine 0.77 Estimated GFR 80 L Random Glucose 103 Calcium 8.6 Magnesium 1.7 Total Bilirubin 0.7 AST 26 ALT 28 Alkaline Phosphatase 102 Total Protein 7.4 Albumin 3.7 TSH 12.200 H Urine Color Urine Clarity Urine pH Ur Specific [place] Urine Protein Urine Glucose (UA) Urine Ketones Urine Occult Blood Urine Nitrate Urine Bilirubin Urine Urobilinogen Ur Leukocyte Esterase Urine RBC Urine WBC Ur Squamous Epith Cells Urine Mucus Micro UA Comment Ur Microscopic Review Urine Culture Comments 07/01/18 04:50 WBC RBC Hgb Hct MCV MCH MCHC RDW Plt Count MPV Neut % (Auto) Lymph % (Auto) [place] % (Auto) Eos % (Auto) Baso % (Auto) Neut # (Auto) Lymph # (Auto) [place] # (Auto) Eos # (Auto) Baso # (Auto) WBC Differential Differential Comment Sodium Potassium Chloride Carbon Dioxide Anion Gap BUN Creatinine Estimated GFR Random Glucose Calcium Magnesium Total Bilirubin AST ALT Alkaline Phosphatase Total Protein Albumin TSH Urine Color Yellow Urine Clarity Hazy H Urine pH 5.0 Ur Specific [place] 1.010 Urine Protein Negative Urine Glucose (UA) Negative Urine Ketones Negative Urine Occult Blood Small H Urine Nitrate Negative Urine Bilirubin Negative Urine Urobilinogen Less than 2 Ur Leukocyte Esterase Negative Urine RBC 2 Urine WBC 2 Ur Squamous Epith Cells 1 Urine Mucus Few H Micro UA Comment Culture not ind Ur Microscopic Review Not Reportable Urine Culture Comments Culture not ind - Imaging Impressions Head CT 06/30/18 20:53 CONCLUSION: 1. Bilateral thalamic hypodensities and diffuse areas of decreased attenuation in the supratentorial white matter. It would be unusual for a patient of 48 years old to have diffuse ischemic change and lacunar infarcts; therefore, recommend performing MRI brain with and without contrast for further characterization. . Head MRI 06/30/18 22:02 CONCLUSION: 1. 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 Unusual in a 48-year-old. This may be associated with the patient's reported history of long-standing hypertension. 2. Nothing acute. Review/Management - Diagnosis (1) Seizure Code(s): R56.9 - Unspecified convulsions Status: Acute Current Visit: Yes (2) Schizophrenia Code(s): F20.9 - Schizophrenia, unspecified Status: Acute Current Visit: Yes (3) White matter changes Status: Acute Current Visit: Yes (4) Leukoencephalopathy Code(s): G93.49 - Other encephalopathy Status: Acute Current Visit: Yes - Review/Management Plan: Unclear if she really had a seizure what exactly occurred. If she did it may possibly be related to Clazuril if she is taking that compliantly. MRI brain scan demonstrating significant white matter changes. Likely related to chronic small vessel ischemic disease. CADASIL is another possibility Recommendations We will add Depakote for mood control and the possibility of seizure Follow-up EEG Aspirin daily Check lipids carotid echo ESR B12 TSH CADASIL gene testing if available PT evaluation
[2018-07-01 11:11] LABS: Free T4 (Free Thyroxine) 1.08 ng/dL (0.76-1.46); Triiodothyronine (T3) Free 2.6 pg/mL (2.18-3.98)
[2018-07-01] MEDS: Divalproex 250 MG ER Tablet PO SCH ×2 (11:40→21:04)
--- NOTE | 2018-07-01 12:04 | P.PN ---
Subjective Interval history: Follow-up visit for possible seizure disorder. Patient is seen and evaluated sitting up in bed with nurse at bedside. Patient is Kyr[place] and Vietnamese speaking, carry conversation in both languages. She is oriented to self, place but diffusely confused and thought processes disorganized. Patient reports that she does see a psychiatrist, her daughter is in charge of taking her to her appointments. Patient denies any fevers, chills, nausea, vomiting, diarrhea , cough, shortness of breath or chest pain. Nurse who spoke to daughter later in the day reports patient has these episodes around the same time every year. Patient was also recently had changes to her psychiatric medications followed by symptoms which brought patient to the hospital. Physical Exam Vital signs: Vital Signs 06/30/18 20:46 06/30/18 20:52 06/30/18 21:31 Temperature 98.7 F Pulse Rate 105 H 94 H Respiratory Rate 16 16 Blood Pressure 148/99 H 127/67 Pulse Oximetry 100 98 97 07/01/18 03:23 07/01/18 04:20 07/01/18 05:48 Temperature 97.9 F Pulse Rate 90 97 H 94 H Respiratory Rate 16 18 Blood Pressure 145/78 H 124/75 Pulse Oximetry 96 97 07/01/18 08:00 07/01/18 08:19 07/01/18 09:05 Temperature 97.9 F Pulse Rate 112 H 117 H Respiratory Rate 16 Blood Pressure 163/98 H Pulse Oximetry 99 99 Intake & Output 06/30/18 07/01/18 07/01/18 18:59 06:59 18:59 Weight 45.3 kg Other: # Voids 2 Date of Last Bowel Movement 06/30/18 06/30/18 Weight On Admission 74.84 kg Narrative: GENERAL: Well-developed, well-nourished female in no acute distress. SKIN: Warm and dry. HEAD: Atraumatic. Normocephalic. EYES: Pupils equal and round. No scleral icterus. No injection or drainage. ENT: No nasal bleeding or discharge. Mucous membranes pink and moist. NECK: Trachea midline. CARDIOVASCULAR: Regular rate and rhythm. RESPIRATORY: No accessory muscle use. Clear to auscultation. Breath sounds equal bilaterally. GASTROINTESTINAL: Abdomen soft, non-tender, nondistended. + Bowel sounds. MUSCULOSKELETAL: Extremities without clubbing, cyanosis, or edema. No obvious deformities. NEUROLOGICAL: Awake and alert. No obvious cranial nerve deficits. Motor grossly within normal limits. Normal speech. PSYCHIATRIC: Appears anxious Results - Labs CBC & Chem 7: 06/30/18 21:30 06/30/18 21:30 Laboratory Results - last 24 hr 06/30/18 06/30/18 06/30/18 21:30 21:30 21:30 WBC 7.3 RBC 4.45 Hgb 13.5 Hct 39.1 MCV 87.8 MCH 30.3 MCHC 34.5 RDW 13.3 Plt Count 195 MPV 7.9 Neut % (Auto) 64.8 Lymph % (Auto) 21.8 [place] % (Auto) 13.1 H Eos % (Auto) 0.0 Baso % (Auto) 0.3 Neut # (Auto) 4.7 Lymph # (Auto) 1.6 [place] # (Auto) 1.0 H Eos # (Auto) 0.0 Baso # (Auto) 0.0 WBC Differential . Differential Comment Auto diff final Sodium 139 Potassium 4.0 Chloride 106 Carbon Dioxide 22.1 Anion Gap 11 BUN 11 Creatinine 0.77 Estimated GFR 80 L Random Glucose 103 Calcium 8.6 Magnesium 1.7 Total Bilirubin 0.7 AST 26 ALT 28 Alkaline Phosphatase 102 Total Protein 7.4 Albumin 3.7 TSH 12.200 H Free T4 Free T3 Urine Color Urine Clarity Urine pH Ur Specific [place] Urine Protein Urine Glucose (UA) Urine Ketones Urine Occult Blood Urine Nitrate Urine Bilirubin Urine Urobilinogen Ur Leukocyte Esterase Urine RBC Urine WBC Ur Squamous Epith Cells Urine Mucus Micro UA Comment Ur Microscopic Review Urine Culture Comments 07/01/18 07/01/18 04:50 10:05 WBC RBC Hgb Hct MCV MCH MCHC RDW Plt Count MPV Neut % (Auto) Lymph % (Auto) [place] % (Auto) Eos % (Auto) Baso % (Auto) Neut # (Auto) Lymph # (Auto) [place] # (Auto) Eos # (Auto) Baso # (Auto) WBC Differential Differential Comment Sodium Potassium Chloride Carbon Dioxide Anion Gap BUN Creatinine Estimated GFR Random Glucose Calcium Magnesium Total Bilirubin AST ALT Alkaline Phosphatase Total Protein Albumin TSH Free T4 1.08 Free T3 2.60 Urine Color Yellow Urine Clarity Hazy H Urine pH 5.0 Ur Specific [place] 1.010 Urine Protein Negative Urine Glucose (UA) Negative Urine Ketones Negative Urine Occult Blood Small H Urine Nitrate Negative Urine Bilirubin Negative Urine Urobilinogen Less than 2 Ur Leukocyte Esterase Negative Urine RBC 2 Urine WBC 2 Ur Squamous Epith Cells 1 Urine Mucus Few H Micro UA Comment Culture not ind Ur Microscopic Review Not Reportable Urine Culture Comments Culture not ind - Imaging Impressions Head CT 06/30/18 20:53 CONCLUSION: 1. Bilateral thalamic hypodensities and diffuse areas of decreased attenuation in the supratentorial white matter. It would be unusual for a patient of 48 years old to have diffuse ischemic change and lacunar infarcts; therefore, recommend performing MRI brain with and without contrast for further characterization. . Head MRI 06/30/18 22:02 CONCLUSION: 1. 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 Unusual in a 48-year-old. This may be associated with the patient's reported history of long-standing hypertension. 2. Nothing acute. Assessment and Plan - Plan 48-year-old female with past medical history significant for schizophrenia, anxiety, HTN, hypothyroidism who presented to the emergency department for evaluation with concerns for seizures. Possible seizure -Patient diffusely confused and extremely poor historian -Neurology services consulted, greatly appreciate assistance -EEG pending -CT of head: Bilateral stomach hypodensities in diffuse areas of decreased attenuation in the supratentorial white matter, followup MRI with moderate weight changes, no acute lesion. -Patient started on Depakote 500 mg twice daily along with aspirin 325 daily -Seizure precautions, as needed Ativan Schizophrenia/anxiety -Continue Clozaril and Seroquel -Consult psychiatry for further recommendations, greatly appreciate assistance Tachycardia -Most likely related to anxiety, EKG showing sinus tach -Continue propanolol 10 mg twice daily Hypothyroidism -TSH 12.12, free T4 1.08, continue patient's home dose levothyroxine. Nurse has verified compliance with patient's daughter. DVT prophylaxisambulation Discussed Condition With: Discussed with patient and RN
--- NOTE | 2018-07-01 13:48 | ECG ---
Date Performed: 06/30/2018 Time Performed: 20:47:11 PTAGE: 48 years EKG: SINUS TACHYCARDIA ABNORMAL RHYTHM ECG Compared to PREVIOUS TRACING sinus rate is faster PREVIOUS TRACIN07/28/17 DOCTOR: Fritz Bhandari Interpretating Date/Time 07/01/2018 13:46:35
[2018-07-01 13:49] LABS: Cholesterol 240 mg/dL (120-200); Triglycerides 138 mg/dL (42-150)
[2018-07-01 14:21] LABS: Chol/HDL Ratio 2.88 Ratio; HDL Cholesterol 83.2 mg/dL (40.0-60.0); LDL Cholesterol,Calculated 129 mg/dL (0-99); Vitamin B12 731 pg/mL (193-986)
[2018-07-01] MEDS: Acetaminophen 325 MG Tablet PO PRN (14:34)
--- NOTE | 2018-07-01 17:28 | CT ---
EXAM DATE: 07/01/2018 4:45 PM EDT AGE/SEX: 48 years / Female INDICATIONS: Altered mental status. CLINICAL DATA: This is the patient's initial encounter. Patient reports that signs and symptoms have been present for 1 day and indicates a pain score of Nonresponsive. MEDICAL/SURGICAL HISTORY: Hypertension. Hypothyroidism. None. RADIATION DOSE: 9.48 CTDI (mGy) COMPARISON: [facility] [place], CT HEAD W/O CONTRAST, 06/30/2018. . TECHNIQUE: Volumetric scanning was performed using a multi-row detector CT scanner during bolus infu renato of 74 ml Omnipaque 350 (iohexol) nonionic water-soluble contrast as a single exam dose. The d thuy was post processed with a variety of visualization algorithms including full volume maximum inten sity projection, multi-planar sliding thin slab reformation, curved planar reformation, and surface r endering techniques. Using automated exposure control and adjustment of the mA and/or kV according t o patient size, radiation dose was kept as low as reasonably achievable to obtain optimal diagnostic quality images. DICOM format image data is available electronically for review and comparison. FINDINGS: There is excellent visualization of the major intracranial arteries out to the second-order branch ve ssels. There is no evidence for aneurysm, vessel truncation or stenosis, and no evidence for vascula r malformation. Note is made of origin of the right posterior cerebral artery. CONCLUSION: No acute morongo of [place] vascular findings. Electronically signed by: Byron Tyler MD 07/01/2018 5:27 PM EDT
--- NOTE | 2018-07-01 17:31 | CT ---
EXAM DATE: 07/01/2018 4:46 PM EDT AGE/SEX: 48 years / Female INDICATIONS: Altered mental status. CLINICAL DATA: This is the patient's initial encounter. Patient reports that signs and symptoms have been present for 1 day and indicates a pain score of Nonresponsive. MEDICAL/SURGICAL HISTORY: Hypertension. Hypothyroidism. None. RADIATION DOSE: 9.48 CTDI (mGy) ; Combined studies COMPARISON: No prior exams available for comparison. TECHNIQUE: Volumetric scanning was performed using a multirow detector CT scanner during bolus infus ion of 74 ml Omnipaque 350 (iohexol) nonionic water-soluble contrast as a cumulative dose for multip le exams. The data was postprocessed with a variety of visualization algorithms including full-volu me maximum intensity projection, multiplanar sliding thin-slab reformation, curved-planar reformation , and surface-rendering techniques. Using automated exposure control and adjustment of the mA and/or kV according to patient size, radiation dose was kept as low as reasonably achievable to obtain opti mal diagnostic quality images. DICOM format image data is available electronically for review and co mparison. Percent stenosis is calculated using the diameter of the stenotic region over the diameter of the nor mal distal internal carotid artery. FINDINGS: Aortic Arch: There is a three-vessel origin of the great vessels from the aorta. No evidence of ost ial narrowing Right Carotid: The common carotid artery is intact. The carotid bulb has a normal configuration wit hout ulceration or narrowing. The internal carotid artery lumen is smooth without stenosis. The ext ernal carotid artery is intact. Left Carotid: The common carotid artery is intact. The carotid bulb has a normal configuration with out ulceration or narrowing. The internal carotid artery lumen is smooth without stenosis. The exte rnal carotid artery is intact. Vertebrals: The vertebral arteries have a symmetric diameter. No stenotic lesions are seen. CONCLUSION: Negative study Electronically signed by: Byron Tyler MD 07/01/2018 5:30 PM EDT
--- NOTE | 2018-07-01 18:14 | US ---
EXAM DATE: 07/01/2018 6:08 PM EDT AGE/SEX: 48 years / Female INDICATIONS: Amorosis Fugax CLINICAL DATA: This is the patient's initial encounter. Patient reports that signs and symptoms have been present for 1 day and indicates a pain score of 0/10. MEDICAL/SURGICAL HISTORY: Hyperthyroidism. Anxiety. Hypertension. Schizophrenia. Seizures. Non e. COMPARISON: No prior exams available for comparison. VELOCITY PARAMETERS: ICA/CCA Ratio: Right 1.0 , Left 0.8 ICA: Right 98.1 cm/sec, Left 80.6 cm/sec CCA: Right 95.1 cm/sec, Left 104 cm/sec ECA: Right 83.2 cm/sec, Left 84.0 cm/sec Vertebral: Right 63.8 cm/sec antegrade, Left 53.3 cm/sec antegrade FINDINGS: Right Carotid: No significant plaque is visualized.The waveforms are within normal limits. Left Carotid: No significant plaque is visualized. The waveforms are within normal limits. Other: None. CONCLUSION: 1. Right Internal Carotid Artery: No significant stenosis or atherosclerotic plaque is visualized. 2. Left Internal Carotid Artery: No significant stenosis or atherosclerotic plaque is visualized. Electronically signed by: Byron Ramirez MD 07/01/2018 6:12 PM EDT
[2018-07-02 06:44] LABS: Baso % (Auto) 0.2 % (0.0-2.0); Hematocrit 39.9 % (35.0-46.0); Lymph # (Auto) 2.7 th/mm3 (1.0-4.8); Lymph % (Auto) 26.9 % (9.0-44.0); Mean Corpuscular Hemoglobin 31.1 pg (27.0-34.0); Mean Corpuscular Volume 88.8 fL (80.0-100.0); Mean Platelet Volume 7.5 fL (7.0-11.0); Mono # (Auto) 1.1 th/mm3 (0.0-0.9); Mono % (Auto) 10.5 % (0.0-8.0); Neut # (Auto) 6.3 th/mm3 (1.8-7.7); Neut % (Auto) 62.4 % (16.0-70.0); Platelet Count 221 th/mm3 (150-450); Red Blood Count 4.49 mil/mm3 (4.00-5.30); Red Cell Distribution Width 13.3 % (11.6-17.2)
[2018-07-02] MEDS: Levothyroxine 88 MCG Tablet PO SCH (06:45)
[2018-07-02 07:09] LABS: Alanine Aminotransferase 28 U/L (10-53); Albumin 3.6 g/dL (3.4-5.0); Anion Gap 12 meq/L (5-15); Blood Urea Nitrogen 14 mg/dL (7-18); Calcium 8.7 mg/dL (8.5-10.1); Carbon Dioxide 24.3 meq/L (21.0-32.0); Chloride 106 meq/L (98-107); Glomerular Filtration Rate 72 mL/min (>89); Glucose,Random 85 mg/dL (74-106); Potassium 3.6 meq/L (3.5-5.1); Sodium 142 meq/L (136-145)
--- NOTE | 2018-07-02 07:12 | MG ---
cc: Luis Stokes MD ELECTROENCEPHALOGRAM RECORD NUMBER: [id number] A 7 Hz activity, 20-50 microvolts. Movement artifacts and sharply contoured theta activity occurring at times. Hyperventilation performed with mild buildup. Background slowing at times. Good EEG variability reactivity. Reduced driving with photic stimulation. Single EKG showing sinus rhythm. INTERPRETATION: Mild encephalopathy. Clinical correlation. Luis Stokes MD MG/ct/twin , 08:29 PM , 08:36 PM [email or web address]
[2018-07-02 07:17] LABS: Alkaline Phosphatase 102 U/L (45-117); Aspartate Aminotransferase 33 U/L (15-37); Total Protein 7.5 g/dL (6.4-8.2)
[2018-07-02 10:42] LABS: Hemoglobin A1c 5.7 % (4.3-6.0)
--- NOTE | 2018-07-02 10:42 | P.PNNEU ---
Subjective Subjective Comments: Slept well denies any seizures syncope headache focal weakness Active Medications: Active Medications Acetaminophen (Tylenol) 650 mg PO Q4H PRN PRN Reason: PAIN SCALE 1 TO 10 Last Admin: 07/01/18 14:34 Dose: 650 mg Aspirin (Ecotrin) 325 mg PO DAILY [facility] Last Admin: 07/01/18 11:40 Dose: 325 mg Benztropine Mesylate (Cogentin) 2 mg PO BID [facility] Last Admin: 07/01/18 21:04 Dose: 2 mg Clozapine (Clozaril) 25 mg PO DAILY [facility] Last Admin: 07/01/18 09:08 Dose: 25 mg Divalproex Sodium (Depakote Er) 500 mg PO BID [facility] Last Admin: 07/01/18 21:04 Dose: 500 mg Sodium Chloride (Ns Inj) 1,000 mls @ 75 mls/hr IV.CONT .[id number] [facility] Last Infusion: 07/01/18 17:27 Dose: Infused Levothyroxine Sodium (Synthroid) 88 mcg PO DAILY@0600 [facility] Last Admin: 07/02/18 06:45 Dose: 88 mcg Lorazepam (Ativan Inj) 2 mg IV.PUSH Q10M PRN PRN Reason: SEE LABEL COMMENTS Propranolol HCl (Inderal) 10 mg PO BID [facility] Last Admin: 07/01/18 21:04 Dose: 10 mg Quetiapine Fumarate (Seroquel) 25 mg PO DAILY [facility] Last Admin: 07/01/18 09:08 Dose: 25 mg Sodium Chloride (Ns Flush) 2 ml IV.FLUSH BID [facility] Last Admin: 07/01/18 21:04 Dose: 2 ml Sodium Chloride (Ns Flush) 2 ml IV.FLUSH PRN PRN PRN Reason: FLUSH AFTER USING IV ACCESS Allergies/Adverse Reactions: Allergies Allergy/AdvReac Type Severity Reaction Status Date / Time No Known Allergies Allergy Verified 07/01/18 05:05 Review of Systems All other systems reviewed negative except as stated in HPI Physical Exam Vital signs: Vital Signs 07/01/18 12:00 07/01/18 15:04 07/01/18 16:00 Temperature 97.8 F 98.3 F Pulse Rate 96 H 113 H Respiratory Rate 16 18 16 Blood Pressure 148/102 H 169/99 H Pulse Oximetry 98 95 07/01/18 19:57 07/01/18 20:00 07/01/18 23:57 Temperature 97.3 F L Pulse Rate 126 H 117 H 112 H Respiratory Rate 18 Blood Pressure 151/94 H Pulse Oximetry 95 07/02/18 00:00 07/02/18 04:47 07/02/18 05:28 Temperature 98.1 F 98.4 F Pulse Rate 101 H 101 H Respiratory Rate 17 18 17 Blood Pressure 146/89 H 106/62 Pulse Oximetry 98 97 07/02/18 07:51 Temperature Pulse Rate Respiratory Rate Blood Pressure Pulse Oximetry 99 Intake & Output 07/01/18 07/02/18 07/02/18 18:59 06:59 18:59 Intake Total 3200 / 3200 Balance 3200 / 3200 Intake: IV 1999 / 1999 NS Inj 1,000 ML @ 75 mls/hr IV. 1000 / 1000 CONT .[id number] ONEIL Rx#:[id number] Oral 1200 / 1200 Other: # Voids 2 Date of Last Bowel Movement 06/30/18 06/30/18 Narrative: GENERAL: Well-developed, well-nourished female in no acute distress. SKIN: Warm and dry. HEAD: Atraumatic. Normocephalic. EYES: Pupils equal and round. No scleral icterus. No injection or drainage. ENT: No nasal bleeding or discharge. Mucous membranes pink and moist. NECK: Trachea midline. CARDIOVASCULAR: Regular rate and rhythm. RESPIRATORY: No accessory muscle use. Clear to auscultation. Breath sounds equal bilaterally. GASTROINTESTINAL: Abdomen soft, non-tender, nondistended. + Bowel sounds. MUSCULOSKELETAL: Extremities without clubbing, cyanosis, or edema. No obvious deformities. NEUROLOGICAL: Resting easily arousable oriented 1-2. Follows. Pleasant, extraocular movements intact no facial asymmetry no obvious cranial nerve deficits. Motor grossly within normal limits. Normal speech. PSYCHIATRIC: Appears well - Constitutional no acute distress - Routine HEENT Exam Head: Present: normocephalic Eye: Present: EOMI Objective Laboratory Results - last 24 hr 07/01/18 07/01/18 07/01/18 10:05 12:35 12:35 WBC RBC Hgb Hct MCV MCH MCHC RDW Plt Count MPV Neut % (Auto) Lymph % (Auto) [place] % (Auto) Eos % (Auto) Baso % (Auto) Neut # (Auto) Lymph # (Auto) [place] # (Auto) Eos # (Auto) Baso # (Auto) WBC Differential Differential Comment Sodium Potassium Chloride Carbon Dioxide Anion Gap BUN Creatinine Estimated GFR Random Glucose Calcium Total Bilirubin AST ALT Alkaline Phosphatase Ammonia 24 C-Reactive Protein Less than 0.29 Total Protein Albumin Triglycerides 138 Cholesterol 240 H LDL Cholesterol, Calc 129 H HDL Cholesterol 83.2 H Cholesterol/HDL Ratio 2.88 Vitamin B12 731 Free T4 1.08 Free T3 2.60 07/02/18 07/02/18 06:06 06:08 WBC 10.0 RBC 4.49 Hgb 14.0 Hct 39.9 MCV 88.8 MCH 31.1 MCHC 35.0 RDW 13.3 Plt Count 221 MPV 7.5 Neut % (Auto) 62.4 Lymph % (Auto) 26.9 [place] % (Auto) 10.5 H Eos % (Auto) 0.0 Baso % (Auto) 0.2 Neut # (Auto) 6.3 Lymph # (Auto) 2.7 [place] # (Auto) 1.1 H Eos # (Auto) 0.0 Baso # (Auto) 0.0 WBC Differential . Differential Comment Auto diff final Sodium 142 Potassium 3.6 Chloride 106 Carbon Dioxide 24.3 Anion Gap 12 BUN 14 Creatinine 0.84 Estimated GFR 72 L Random Glucose 85 Calcium 8.7 Total Bilirubin 1.0 AST 33 ALT 28 Alkaline Phosphatase 102 Ammonia C-Reactive Protein Total Protein 7.5 Albumin 3.6 Triglycerides Cholesterol LDL Cholesterol, Calc HDL Cholesterol Cholesterol/HDL Ratio Vitamin B12 Free T4 Free T3 Review/Management - Diagnosis (1) Seizure Code(s): R56.9 - Unspecified convulsions Status: Acute Current Visit: Yes (2) Schizophrenia Code(s): F20.9 - Schizophrenia, unspecified Status: Acute Current Visit: Yes (3) White matter changes Status: Acute Current Visit: Yes (4) Leukoencephalopathy Code(s): G93.49 - Other encephalopathy Status: Acute Current Visit: Yes - Review/Management Plan: Unclear if she really had a seizure what exactly occurred. If she did it may possibly be related to Clozaril if she is taking that compliantly. MRI brain scan demonstrating significant white matter changes. Likely related to chronic small vessel ischemic disease. CADASIL is another possibility CTA brain carotids negative. EEG no active seizure activity Recommendations Add statin Continue Depakote Discharge planning from neurologic standpoint outpatient follow-up with her primary care physician psychiatrist and neurology Blood pressure lipid control CADASIL gene testing No driving PT evaluation
[2018-07-02] MEDS: Propranolol 10 MG Tablet PO SCH (10:57)
[2018-07-02] MEDS: Benztropine 2 MG Tablet PO SCH (10:57)
[2018-07-02] MEDS: QUEtiapine 25 MG Tablet PO SCH (10:58)
[2018-07-02] MEDS: Divalproex 250 MG ER Tablet PO SCH (11:11)
[2018-07-02] MEDS: Sod Chloride 0.9% Inj 1,000 ML IV.CONT SCH (11:11)
--- NOTE | 2018-07-02 12:01 | P.CONPSY ---
Provisional Diagnosis Admission Date: July 01, 2018 03:30 Hammond I.: Schizophrenia Hammond II.: Deferred Hammond III.: Hypothyroidism, seizures History of Present Illness Service: Medicine Primary Care Provider: UNKNOWN Chief Complaint: Possible seizure, TIA History of Present Illness: The patient is a 48-year-old [place] woman, single, domiciled with her daughter in [place], unemployed, supported by [facility], with psychiatric history of schizophrenia and anxiety, multiple psychiatric hospitalizations, last hospitalization here in [place] in March 2018, documentation review, outpatient care with Dr. Selena Valadez, she is on Clozapine 25 mg, Seroquel 25 mg, benztropine 2 mg twice daily, Depakote 500 mg, no previous suicidal attempts, medical history hypothyroidism, hypertension and seizures, who presents to the emergency department for the evaluation of possible seizure. Initially on ER interview, the patient is only minimally responsive. She will open her eyes to voice but does not answer questions. Per ED records, the patient may have a prior history of seizure disorder however this has not been confirmed with records review. The patient was apparently found postictal by her family. No bowel/bladder incontinence. No head trauma or tongue lacerations. She was seen by neurology who dictated: MRI brain scan demonstrating significant white matter changes. Likely related to chronic small vessel ischemic disease. CADASIL is another possibility. CTA brain carotids negative. EEG no active seizure activity. Consulted to psychiatry to address potential psychiatric cause of current presentation. Chart review. I got collateral information from her daughter Aylin Hurtado, , who states that the patient has being a baseline until about 3 days ago when she visited her psychiatrist and 2 medications were added, Seroquel 25 mg and benztropine 2 mg twice daily. She says that almost immediately she started this to medication patient started having seizures. However, she said that the patient had an episode of seizures exactly by this time a year ago. The patient has been compliant with her medications, as reported. My psychiatric evaluation the patient is calm, cooperative, she seems to be baseline. The patient reports good mood, denies anhedonia, denies hopelessness, helplessness. The patient states that she is ready to go back home. She seems to be quite confused, oriented in person, just partially oriented in place and disoriented in time. As per daughter, the patient has baseline memory problems. The patient denies suicidal and homicidal ideation, she denies visual and auditory hallucinations. She is no paranoia, no loosening of associations present, no agitation, no aggressive behavior, no manic symptoms present. PPHx: chizophrenia and anxiety, multiple psychiatric hospitalizations, last hospitalization here in [place] in March 2018, documentation review, outpatient care with Dr. Selena Valadez, she is on Clozapine 25 mg, Seroquel 25 mg, benztropine 2 mg twice daily, Depakote 500 mg, no previous suicidal attempts, PMHx: Seizures, hypothyroidism, hypertension Susatnce Hx: Denies the use of alcohol and illegal drug Family PPHx: No family psychiatric history Social Hx: She was born and raised in [place], , single, domiciled with her daughter in [place], unemployed, supported by [facility], Review of Systems Constitutional: Denies anorexia, Denies body ache(s), Denies chills, Denies daytime sleepiness, Denies excessive sweating, Denies fatigue, Denies fever(s), Denies headache(s), Denies increased appetite, Denies lack of energy, Denies malaise, Denies night sweats, Denies weakness, Denies weight gain, Denies weight loss, Denies other Eyes: Denies blind spots, Denies blurry vision, Denies bulging eyes, Denies change in vision, Denies double vision, Denies discharge, Denies dry eyes, Denies floaters, Denies irritation, Denies itchy eyes, Denies loss of vision, Denies pain, Denies requires corrective lenses, Denies sensitivity to light, Denies other Ears, Nose, Mouth, and Throat: Denies abnormal hearing, Denies bleeding gums, Denies bad breath, Denies change in voice, Denies dental pain, Denies difficulty swallowing, Denies dizziness, Denies dry mouth, Denies ear discharge , Denies ear pain, Denies facial pain, Denies headache(s), Denies hearing loss, Denies hoarseness, Denies lip swelling, Denies nosebleed, Denies mouth lesions, Denies mouth pain, Denies nasal congestion, Denies nasal discharge, Denies nasal obstruction, Denies nasal trauma, Denies neck lump, Denies neck pain, Denies nose pain, Denies pain with swallowing, Denies poor balance, Denies post nasal drip, Denies ringing in the ears, Denies sinus pain, Denies sinus pressure , Denies sore throat, Denies throat swelling, Denies tongue swelling, Denies other Cardiovascular: Denies chest pain, Denies chest pain at rest, Denies chest pain with activity, Denies excessive sweating, Denies fainting, Denies fast heart rate, Denies foot swelling, Denies generalized swelling, Denies irregular heart rhythm, Denies leg pain with activity, Denies leg sores, Denies leg swelling, Denies lightheadedness, Denies radiating jaw, neck or arm pain, Denies rapid, pounding, or irregular heartbeat, Denies shortness of breath, Denies shortness of breath with activity, Denies shortness of breath when lying down, Denies shortness of breath causing sudden awakening, Denies slow heart rate, Denies other Respiratory: Denies change in phlegm color, Denies chest congestion, Denies cough, Denies coughing up blood, Denies excessive phlegm production, Denies pain on inspiration, Denies pain with cough, Denies shortness of breath, Denies shortness of breath with activity, Denies snoring, Denies stridor, Denies wheezing, Denies other Gastrointestinal: Denies abdominal pain, Denies belching, Denies black, tarry stools, Denies bloating, Denies bright, red blood in stools, Denies change in bowel habits, Denies constant urge to pass stool, Denies change in stools, Denies coffee ground vomit, Denies constipation, Denies cramping, Denies difficulty swallowing, Denies excessive passing of gas, Denies feeling full early, Denies heartburn, Denies incontinent of stools, Denies loose stools, Denies nausea, Denies pain with swallowing, Denies vomiting, Denies vomiting blood, Denies other Genitourinary: Denies abnormal periods, Denies abnormal vaginal bleeding, Denies absent period, Denies bleeding between periods, Denies blood in urine, Denies difficulty starting urination, Denies difficulty urinating, Denies dribbling after urination, Denies frequent nighttime urination, Denies genital itching, Denies genital lesions, Denies heavy periods, Denies hot flashes, Denies light periods, Denies nipple discharge, Denies painful intercourse, Denies painful periods, Denies painful urination, Denies pelvic pain, Denies prolapse symptoms, Denies sexual problems, Denies side pain, Denies urinary incontinence, Denies urinary urgency, Denies vaginal discharge, Denies vaginal dryness, Denies vaginal odor, Denies vaginal itching, Denies other Musculoskeletal: Denies abnormal walking, Denies back pain, Denies body aches, Denies decreased muscle mass, Denies deformity, Denies joint pain, Denies joint swelling, Denies limited joint movement, Denies loss of height, Denies muscle cramps, Denies muscle weakness, Denies neck pain, Denies numbness, Denies radiating pain into limb, Denies stiffness, Denies tingling, Denies other Skin/Breast: Denies acne, Denies bleeding lesions, Denies boil, Denies breast swelling, Denies breast skin changes, Denies breast pain, Denies breast lump, Denies change in breast shape, Denies change in hair, Denies change in skin color, Denies changing lesions, Denies dry skin, Denies excessive hair growth, Denies hair loss, Denies itching, Denies lesions, Denies nail changes, Denies new lesions, Denies nipple discharge, Denies non-healing lesions, Denies redness , Denies sensitivity to light, Denies rash, Denies skin pain, Denies skin ulcer , Denies sores, Denies stretch mondragon, Denies unusual bruising, Denies wounds, Denies yellowing of the skin, Denies other Neurologic: Denies abnormal hearing, Denies abnormal movements, Denies abnormal speech, Denies abnormal walking, Denies behavioral changes, Denies burning sensations, Denies confusion, Denies dizziness, Denies fainting, Denies frequent falls, Denies headache(s), Denies lack of coordination, Denies localized weakness, Denies loss of vision, Denies memory loss, Denies numbness, Denies other visual disturbances, Denies radiating pain, Denies restless legs, Denies convulsions, Denies seizure-like activity, Denies sensory deficit, Denies tingling, Denies tingling/numbness/burning sensations, Denies tremor(s), Denies unsteadiness, Denies weakness, Denies other Psychiatric: Denies abnormal sleep pattern, Denies anxiety, Denies behavioral changes, Denies change in appetite, Denies change in sex drive, Denies confusion , Denies depression, Denies difficulty concentrating, Denies hearing things others do not hear, Denies hopelessness, Denies irritability, Denies lack of enjoyment, Denies memory loss, Denies mood swings, Denies panic attacks, Denies paranoia, Denies seeing things others do not see, Denies sensing things others do not sense, Denies tactile hallucinations, Denies thoughts of hurting/killing others, Denies thoughts of hurting/killing yourself, Denies other PMFSH - History History Provided By: Patient - Medical History Medical History: Medical History (Last Reviewed 07/01/18 @ 05:04 by Camryn Godwin RN) Anxiety Hypertension Hypothyroid Schizophrenia Seizure - Surgical History Surgical History: Surgical History (Last Reviewed 07/01/18 @ 05:04 by Camryn Godwin RN) No history of previous surgery - Family History Family History: Family History (Last Updated 07/01/18 @ 06:14 by Gisel Carlin MD) Other Family history unknown - Tobacco History Second Hand Smoke Exposure: No Tobacco Use In Past 30 Days: No Smoking Status: Never smoker - Alcohol History How Often Do You Have a Drink Containing Alcohol: Never - Substance Use History Substance History: No History of Abuse - Travel History Recent Travel in the [facility] Within the Last 8 Weeks: No Recent Travel Out of the Country Within the Last 8 Weeks: No - Immunization History Tetanus Immunization: Unsure Hx Influenza Vaccine This Season: No Medications and Allergies Active Medications: Active Medications Acetaminophen (Tylenol) 650 mg PO Q4H PRN PRN Reason: PAIN SCALE 1 TO 10 Last Admin: 07/01/18 14:34 Dose: 650 mg Aspirin (Ecotrin) 325 mg PO DAILY [facility] Last Admin: 07/02/18 10:58 Dose: 325 mg Atorvastatin Calcium (Lipitor) 40 mg PO [facility] Benztropine Mesylate (Cogentin) 2 mg PO BID [facility] Last Admin: 07/02/18 10:57 Dose: 2 mg Clozapine (Clozaril) 25 mg PO DAILY [facility] Last Admin: 07/02/18 11:10 Dose: 25 mg Divalproex Sodium (Depakote Er) 500 mg PO BID [facility] Last Admin: 07/02/18 11:11 Dose: 500 mg Sodium Chloride (Ns Inj) 1,000 mls @ 75 mls/hr IV.CONT .[id number] [facility] Last Admin: 07/02/18 11:11 Dose: Not Given Levothyroxine Sodium (Synthroid) 88 mcg PO DAILY@0600 [facility] Last Admin: 07/02/18 06:45 Dose: 88 mcg Lorazepam (Ativan Inj) 2 mg IV.PUSH Q10M PRN PRN Reason: SEE LABEL COMMENTS Propranolol HCl (Inderal) 10 mg PO BID [facility] Last Admin: 07/02/18 10:57 Dose: 10 mg Quetiapine Fumarate (Seroquel) 25 mg PO DAILY [facility] Last Admin: 07/02/18 10:58 Dose: 25 mg Sodium Chloride (Ns Flush) 2 ml IV.FLUSH BID [facility] Last Admin: 07/02/18 11:02 Dose: 2 ml Sodium Chloride (Ns Flush) 2 ml IV.FLUSH PRN PRN PRN Reason: FLUSH AFTER USING IV ACCESS Allergies Allergy/AdvReac Type Severity Reaction Status Date / Time No Known Allergies Allergy Verified 07/01/18 05:05 Home Medications Medication Instructions Recorded Confirmed Type benztropine 2 mg PO BID 06/30/18 06/30/18 History clozapine [Clozaril] 25 mg PO DAILY 06/30/18 06/30/18 History levothyroxine 88 mcg PO DAILY 06/30/18 06/30/18 History propranolol 10 mg PO BID 06/30/18 06/30/18 History quetiapine 25 mg PO DAILY 06/30/18 06/30/18 History Exam Vital signs: Vital Signs 07/01/18 12:00 07/01/18 15:04 07/01/18 16:00 Temperature 97.8 F 98.3 F Pulse Rate 96 H 113 H Respiratory Rate 16 18 16 Blood Pressure 148/102 H 169/99 H Pulse Oximetry 98 95 07/01/18 19:57 07/01/18 20:00 07/01/18 23:57 Temperature 97.3 F L Pulse Rate 126 H 117 H 112 H Respiratory Rate 18 Blood Pressure 151/94 H Pulse Oximetry 95 07/02/18 00:00 07/02/18 04:47 07/02/18 05:28 Temperature 98.1 F 98.4 F Pulse Rate 101 H 101 H Respiratory Rate 17 18 17 Blood Pressure 146/89 H 106/62 Pulse Oximetry 98 97 07/02/18 07:51 Temperature Pulse Rate Respiratory Rate Blood Pressure Pulse Oximetry 99 Intake & Output 07/01/18 07/02/18 07/02/18 18:59 06:59 18:59 Intake Total 3200 / 3200 Balance 3200 / 3200 Intake: IV 2000 / 1999 NS Inj 1,000 ML @ 75 mls/hr IV. 1000 / 1000 CONT .[id number] [facility] Rx#:[id number] Oral 1200 / 1200 Other: # Voids 2 Date of Last Bowel Movement 06/30/18 06/30/18 Narrative: No tremors, no EPS, no psychomotor agitation retardation,, no catatonia, - Constitutional no acute distress - Routine HEENT Exam Head: Present: normocephalic, atraumatic Eye: Present: EOMI, PERRL ENT: Present: mucous membranes moist Mental Status Examination Appearance: Appropriate Consciousness: Alert Orientation: Person, Place Motor Activity: Normal gait Speech: Unremarkable Language: Adequate Fund of Knowledge: Adequate Attention and Concentration: Inadequate Memory: Impaired Mood: Appropriate Affect: Appropriate Thought Process & Associations: Intact Thought Content: Appropriate Hallucination Type: None Delusion Type: None Suicidal Ideation: No Suicidal Plan: No Suicidal Intention: No Homicidal Ideation: No Homicidal Plan: No Homicidal Intention: No Insight: Adequate Judgment: Adequate Assessment and Plan - Assessment (1) Schizophrenia Code(s): F20.9 - Schizophrenia, unspecified Status: Acute - Plan Plan: Estimated LOS: [] days On psychiatric evaluation today patient is calm, cooperative, pleasantly confused. The patient reports good mood, denies anhedonia, denies hopelessness , helplessness, she denies suicidal and homicidal ideation, denies visual and auditory hallucinations. She is oriented to person, partially oriented in place , disoriented in time, which is part of cognitive impairment secondary to chronic schizophrenia, at baseline. Patient does not seem to be acutely psychotic, without no paranoia, no loosening of associations, no ideas of reference, no agitation, no aggressive behavior. Information about baseline confirmed by daughter. The patient has psychiatric history of schizophrenia, multiple psychiatric hospitalizations, no suicide attempts, she is in psychotropics with outpatient psychiatrist, as mentioned above. She does not meet criteria for involuntary psychiatric admission at this moment. Patient can continue current psychotropic regimen, with the exception of benztropine 2 mg twice daily, since this medication can worsen cognition. Patient will continue psychiatric care with outpatient psychiatrist. Extensive support, motivational psychoeducation provided. Justification for Continued Inpatient Stay: No admission is indicated.
--- NOTE | 2018-07-02 16:23 | P.PN ---
Subjective Interval history: Follow-up visit for possible seizure disorder. Patient is seen and examined resting in bed comfortably in no acute distress. She denies any pain or discomfort, oriented to self, would like to go home. Nursing staff does not report any acute events. Physical Exam Vital signs: Vital Signs 07/01/18 19:57 07/01/18 20:00 07/01/18 23:57 Temperature 97.3 F L Pulse Rate 126 H 117 H 112 H Respiratory Rate 18 Blood Pressure 151/94 H Pulse Oximetry 95 07/02/18 00:00 07/02/18 04:47 07/02/18 05:28 Temperature 98.1 F 98.4 F Pulse Rate 101 H 101 H Respiratory Rate 17 18 17 Blood Pressure 146/89 H 106/62 Pulse Oximetry 98 97 07/02/18 07:51 07/02/18 12:00 Temperature 97.9 F Pulse Rate 83 Respiratory Rate 18 Blood Pressure 101/66 Pulse Oximetry 99 99 Intake & Output 07/01/18 07/02/18 07/02/18 18:59 06:59 18:59 Intake Total 3200 / 3200 Balance 3200 / 3200 Intake: IV 1999 / 1999 NS Inj 1,000 ML @ 75 mls/hr IV. 1000 / 1000 CONT .[id number] [facility] Rx#:[id number] Oral 1200 / 1200 Other: # Voids 2 Date of Last Bowel Movement 06/30/18 06/30/18 Narrative: GENERAL: Well-developed, well-nourished female in no acute distress. SKIN: Warm and dry. HEAD: Atraumatic. Normocephalic. EYES: Pupils equal and round. No scleral icterus. No injection or drainage. ENT: No nasal bleeding or discharge. Mucous membranes pink and moist. NECK: Trachea midline. CARDIOVASCULAR: Regular rate and rhythm. RESPIRATORY: No accessory muscle use. Clear to auscultation. Breath sounds equal bilaterally. GASTROINTESTINAL: Abdomen soft, non-tender, nondistended. + Bowel sounds. MUSCULOSKELETAL: Extremities without clubbing, cyanosis, or edema. No obvious deformities. NEUROLOGICAL: Awake and alert. No obvious cranial nerve deficits. Motor grossly within normal limits. Normal speech. PSYCHIATRIC: Appears calm and cooperative Results - Labs CBC & Chem 7: 07/02/18 06:06 07/02/18 06:08 Laboratory Results - last 24 hr 07/01/18 07/02/18 07/02/18 12:35 06:06 06:08 WBC 10.0 RBC 4.49 Hgb 14.0 Hct 39.9 MCV 88.8 MCH 31.1 MCHC 35.0 RDW 13.3 Plt Count 221 MPV 7.5 Neut % (Auto) 62.4 Lymph % (Auto) 26.9 [place] % (Auto) 10.5 H Eos % (Auto) 0.0 Baso % (Auto) 0.2 Neut # (Auto) 6.3 Lymph # (Auto) 2.7 [place] # (Auto) 1.1 H Eos # (Auto) 0.0 Baso # (Auto) 0.0 WBC Differential . Differential Comment Auto diff final Sodium 142 Potassium 3.6 Chloride 106 Carbon Dioxide 24.3 Anion Gap 12 BUN 14 Creatinine 0.84 Estimated GFR 72 L Random Glucose 85 Hemoglobin A1c 5.7 Calcium 8.7 Total Bilirubin 1.0 AST 33 ALT 28 Alkaline Phosphatase 102 Total Protein 7.5 Albumin 3.6 - Imaging Impressions Carotid Doppler Study 07/01/18 11:03 CONCLUSION: 1. Right Internal Carotid Artery: No significant stenosis or atherosclerotic plaque is visualized. 2. Left Internal Carotid Artery: No significant stenosis or atherosclerotic plaque is visualized. Head CTA 07/01/18 11:15 CONCLUSION: No acute [place] of [place] vascular findings. Neck CTA 07/01/18 11:15 CONCLUSION: Negative study Assessment and Plan - Plan 48-year-old female with past medical history significant for schizophrenia, anxiety, HTN, hypothyroidism who presented to the emergency department for evaluation with concerns for seizures. Possible seizure -Patient diffusely confused and extremely poor historian -Neurology services consulted, greatly appreciate assistance -EEG negative for seizure activity -CT of head: Bilateral stomach hypodensities in diffuse areas of decreased attenuation in the supratentorial white matter, followup MRI with moderate weight changes, no acute lesion. 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 Genetic testing per neuro pending. - Carotid artery ultrasound negative. -Continue Depakote 500 mg BID, aspirin 325 daily, and statin -Seizure precautions, No driving Schizophrenia/anxiety -Continue Clozaril and Seroquel -Psychiatry has evaluated patient, does not meet criteria for inpatient psychiatric admission. -Recommendations to continue current psychotropic regimen, no benztropine Tachycardia -Most likely related to anxiety, EKG showing sinus tach -Continue propanolol 10 mg twice daily Hypothyroidism -TSH 12.12, free T4 1.08, continue patient's home dose levothyroxine. DVT prophylaxisambulation Discussed Condition With: Discussed with patient, RN, Dr. Gonzalez Discharge Planning: Call placed to daughter to discuss discharge, no answer. Nurse to attempt contact later today.
--- NOTE | 2018-07-02 17:01 | P.DS ---
Date of admission: 07/01/18 03:30 Primary care physician: UNKNOWN Attending physician on discharge: Andrew Jovel Anticipated date of discharge: 07/02/18 Brief History from admission: 48-year-old female with a past medical history significant for schizophrenia, anxiety, hypertension and hypothyroidism presents to the emergency department for the evaluation of possible seizure. Time of our interview, the patient is only minimally responsive. She will open her eyes to voice but does not answer questions. Per ED records, the patient may have a prior history of seizure disorder however this has not been confirmed with records review. The patient was apparently found postictal by her family. No bowel/bladder incontinence. No head trauma or tongue lacerations. DS: Medications - Discharge Medications Prescriptions: aspirin 325 mg PO DAILY #30 tab atorvastatin 40 mg PO HS #30 tab divalproex 500 mg PO BID #30 tab DS: Summary Hospital Course: 48-year-old female with past medical history significant for schizophrenia, anxiety, hypertension, hypothyroidism who presented to the emergency department on 07/01 for evaluation of seizures. Of note patient had recently been seen by her psychiatrist who started Seroquel and benztropine, apparently daughter had noticed these changes very shortly after patient had taken medications. Patient was seen and evaluated by neurology services. CT of head showed bilateral thalamic hypodensities in diffuse areas of decreased attenuation in the supratentorial white matter, followup MRI with moderate weight changes, no acute lesion. 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 Genetic testing per neuro pending. Risk factor modification with full dose aspirin, statin, BP control. CTA of neck and head negative, EEG negative, no events on telemetry other than intermittent tachycardia. Neurology recommended Depakote 500 mg twice daily to assist with mood as well as possible seizure disorder. No driving per neurology. Patient was seen and evaluated by psychiatry services who recommended continuing Clozaril and Seroquel advised against benztropine since this can worsen cognition. Patient did not meet criteria for inpatient psychiatric hospitalization. Recommended by both neurology and psychology to follow-up with PCP, neurology, and psychiatry. Patient is seen and examined this afternoon resting in bed comfortably in no acute distress. She denies any pain or discomfort, oriented to self, would like to go home. Nursing staff does not report any acute events. Call placed to daughter to discuss findings and pending testing with her. Also discussed new medications including Depakote, atorvastatin, and aspirin. Patient will need to follow-up with psychiatrist for further evaluation as well as medications adjustments, daughter verbalized understanding. - Time Spent with Patient Total time spent providing and/or coordinating discharge services: Less than 30 minutes - Quality: VTE Deep Vein Thrombosis/Pulmonary Embolism Present on Admission: No Exam Vital signs: Vital Signs 07/01/18 19:57 07/01/18 20:00 07/01/18 23:57 Temperature 97.3 F L Pulse Rate 126 H 117 H 112 H Respiratory Rate 18 Blood Pressure 151/94 H Pulse Oximetry 95 07/02/18 00:00 07/02/18 04:47 07/02/18 05:28 Temperature 98.1 F 98.4 F Pulse Rate 101 H 101 H Respiratory Rate 17 18 17 Blood Pressure 146/89 H 106/62 Pulse Oximetry 98 97 07/02/18 07:51 07/02/18 09:00 07/02/18 12:00 Temperature 97.9 F Pulse Rate 89 83 Respiratory Rate 18 Blood Pressure 101/66 Pulse Oximetry 99 99 Intake & Output 07/01/18 07/02/18 07/02/18 18:59 06:59 18:59 Intake Total 3200 / 3200 Balance 3200 / 3200 Intake: IV 1999 / 1999 NS Inj 1,000 ML @ 75 mls/hr IV. 1000 / 1000 CONT .[id number] ONEIL Rx#:[id number] Oral 1200 / 1200 Other: # Voids 2 Date of Last Bowel Movement 06/30/18 06/30/18 06/30/18 Narrative: GENERAL: Well-developed, well-nourished female in no acute distress. SKIN: Warm and dry. HEAD: Atraumatic. Normocephalic. EYES: Pupils equal and round. No scleral icterus. No injection or drainage. ENT: No nasal bleeding or discharge. Mucous membranes pink and moist. NECK: Trachea midline. CARDIOVASCULAR: Regular rate and rhythm. RESPIRATORY: No accessory muscle use. Clear to auscultation. Breath sounds equal bilaterally. GASTROINTESTINAL: Abdomen soft, non-tender, nondistended. + Bowel sounds. MUSCULOSKELETAL: Extremities without clubbing, cyanosis, or edema. No obvious deformities. NEUROLOGICAL: Awake and alert. No obvious cranial nerve deficits. Motor grossly within normal limits. Normal speech. PSYCHIATRIC: Appears calm and cooperative Results Procedures completed during hospitalization: none Labs on day of discharge: Labs from last 24 hours 07/02/18 07/02/18 07/02/18 06:08 06:06 06:06 WBC 10.0 RBC 4.49 Hgb 14.0 Hct 39.9 MCV 88.8 MCH 31.1 MCHC 35.0 RDW 13.3 Plt Count 221 MPV 7.5 Neut % (Auto) 62.4 Lymph % (Auto) 26.9 [place] % (Auto) 10.5 H Eos % (Auto) 0.0 Baso % (Auto) 0.2 Neut # (Auto) 6.3 Lymph # (Auto) 2.7 [place] # (Auto) 1.1 H Eos # (Auto) 0.0 Baso # (Auto) 0.0 WBC Differential . Differential Comment Auto diff final Sodium 142 Potassium 3.6 Chloride 106 Carbon Dioxide 24.3 Anion Gap 12 BUN 14 Creatinine 0.84 Estimated GFR 72 L Random Glucose 85 Hemoglobin A1c Calcium 8.7 Total Bilirubin 1.0 AST 33 ALT 28 Alkaline Phosphatase 102 Total Protein 7.5 Albumin 3.6 Misc Test Result Pending 07/01/18 12:35 WBC RBC Hgb Hct MCV MCH MCHC RDW Plt Count MPV Neut % (Auto) Lymph % (Auto) [place] % (Auto) Eos % (Auto) Baso % (Auto) Neut # (Auto) Lymph # (Auto) [place] # (Auto) Eos # (Auto) Baso # (Auto) WBC Differential Differential Comment Sodium Potassium Chloride Carbon Dioxide Anion Gap BUN Creatinine Estimated GFR Random Glucose Hemoglobin A1c 5.7 Calcium Total Bilirubin AST ALT Alkaline Phosphatase Total Protein Albumin Misc Test Result - Impressions ITS Impressions Head CT 06/30/18 20:53 CONCLUSION: 1. Bilateral thalamic hypodensities and diffuse areas of decreased attenuation in the supratentorial white matter. It would be unusual for a patient of 48 years old to have diffuse ischemic change and lacunar infarcts; therefore, recommend performing MRI brain with and without contrast for further characterization. . Head MRI 06/30/18 22:02 CONCLUSION: 1. 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 Unusual in a 48-year-old. This may be associated with the patient's reported history of long-standing hypertension. 2. Nothing acute. Carotid Doppler Study 07/01/18 11:03 CONCLUSION: 1. Right Internal Carotid Artery: No significant stenosis or atherosclerotic plaque is visualized. 2. Left Internal Carotid Artery: No significant stenosis or atherosclerotic plaque is visualized. Head CTA 07/01/18 11:15 CONCLUSION: No acute [place] vascular findings. Neck CTA 07/01/18 11:15 CONCLUSION: Negative study Discharge Plan - Discharge Disposition Patient Disposition: 01 Discharge Home - Discharge Condition Condition: Fair - Discharge Order Discharge Orders: Discharge Order (Routine); Ordered 07/02/18 Ordered By: Jaqueline Solares - Discharge Details Anticipated Discharge Date: 07/02/18 - Physicians Team Primary Care Provider: UNKNOWN, Attending Provider: Andrew Jovel Other Providers: Luis Stokes MD ; Thor Guerrero MD
[2018-07-02] MEDS: Acetaminophen 325 MG Tablet PO PRN (18:09)
[2018-07-02] MEDS ORDERED: Divalproex 500 MG DR Tablet PO SCH (21:00)
== END 2018-07-02 18:42 | disposition home or self-care (01) ==
LOC: NEDA 20:27 → NEPE 20:27 → N06 07-01 04:22
PROVIDERS: ADMIT Internal Medicine; ATTEND Internal Medicine